=== PATIENT | male | born 1950 | race Caucasian/White ===

== ENCOUNTER 2016-06-09 12:44 | Inpatient (IN) | payer MEDICARE ==
[~2016-06-09] VITALS: Ht 190.5 cm; Wt 97.7 kg
[~2016-06-09 12:44] MED LIST: BUPR300T54 PO; CARV25TA2 PO; CLOZ100T PO; FURO-152 PO; LORA-258 PO; LURA80TA PO; POTA8TAB3 PO; RAMI10CA PO; ROSU10TA PO; ZOLP10TA2 PO
[2016-06-09] MEDS ORDERED: DEXAMETHASONE SOD PHOSPHATE 4 MG INJ IV ONE (13:15)
[2016-06-09] MEDS ORDERED: CEFTRIAXONE 2 G in IV DEXTROSE 5% 100 ML IV ONE (13:15)
[2016-06-09] MEDS ORDERED: CEFTRIAXONE 1 G VIAL ONE (13:33)
[2016-06-09] MEDS ORDERED: DEXAMETHASONE SOD PHOSPHATE 10 MG INJ ONE (13:33)
[2016-06-09 14:20] LABS: CALCIUM 8.4 mg/dL (8.5-10.1); CARBON DIOXIDE 26 mmol/L (21-32); CHLORIDE 103 mmol/L (98-107); CREATININE 1.1 mg/dL (0.6-1.3); GFR 67 mL/min (>60); GLUCOSE 101 mg/dL (74-106); POTASSIUM 3.7 mmol/L (3.5-5.1); SODIUM SERUM 140 mmol/L (136-145); UREA NITROGEN, BLOOD 13 mg/dL (7-18)
[2016-06-09 14:21] LABS: BASOPHILS # (AUTO) 0.1 K/uL (0.0-0.2); BASOPHILS % (AUTO) 1.6 % (0.0-2.0); EOSINOPHILS # (AUTO) 0.2 K/uL (0.0-0.7); EOSINOPHILS % (AUTO) 1.9 % (0.0-7.0); HEMATOCRIT 40.8 % (40.0-50.0); HEMOGLOBIN 14.1 g/dL (14.0-18.0); LYMPHOCYTES # (AUTO) 1.6 K/uL (0.8-4.8); LYMPHOCYTES % (AUTO) 19.4 % (20.5-51.5); MEAN CORPUSCULAR HEMOGLOBIN 32.1 uug (27.0-31.0); MEAN CORPUSCULAR HGB CONC 35 g/dL (32.0-37.0); MEAN CORPUSCULAR VOLUME 92.9 fL (82.0-92.0); MONOCYTES # (AUTO) 0.6 K/uL (0.1-1.30); MONOCYTES % (AUTO) 6.9 % (0.0-11.0); NEUTROPHILS # (AUTO) 5.6 K/uL (1.8-8.9); NEUTROPHILS % (AUTO) 70.2 % (38.5-71.5); PLATELET COUNT (AUTO) 223 K/uL (150-450); RED BLOOD CELL COUNT(AUTO) 4.39 MIL/uL (4.70-6.10); RED CELL DISTRIBUTION WIDTH 12.7 % (11.5-14.5); WHITE BLOOD COUNT (AUTO) 8.1 K/uL (4.0-11.2)
[2016-06-09 14:28] LABS: TROPONIN I < 0.017 ng/mL (0.00-0.056)
[2016-06-09 14:31] LABS: ETHANOL < 3 MG/DL (0-0)
[2016-06-09 14:32] LABS: AMMONIA 53 umol/L (11-32)
[2016-06-09 14:39] LABS: ALANINE AMINOTRANSFERASE 21 U/L (16-63); ALBUMIN 3.6 g/dL (3.4-5.0); ALKALINE PHOSPHATASE 52 U/L (50-136); ASPARTATE AMINOTRANSFERASE 17 U/L (15-37); BILIRUBIN,DIRECT 0.1 mg/dL (0.0-0.2); BILIRUBIN,TOTAL 0.3 mg/dL (0.2-1.0); TOTAL PROTEIN, SERUM 6.7 g/dL (6.4-8.2)
[2016-06-09 14:41] LABS: ACETAMINOPHEN < 2.0 ug/mL (10-30)
[2016-06-09] MEDS ORDERED: VALPROATE SODIUM 500 MG/5 ML VIAL IV ONE ×2 (14:45→15:08)
[2016-06-09 14:47] LABS: LACTIC ACID 3.7 mmol/L (0.4-2.0)
[2016-06-09 16:47] VITALS: BP 116/85
[2016-06-09] MEDS ORDERED: MAGNESIUM HYDROXIDE 30 ML LIQUID UDC PO PRN (19:00)
[2016-06-09] MEDS ORDERED: Medication Not On Formulary EA (Zolpidem Tartrate (Ambien) 10 MG) PO PRN (19:00)
[2016-06-09] MEDS ORDERED: LORAZEPAM 2 MG/1 ML VIAL IV PRN (19:00)
[2016-06-09] MEDS ORDERED: ENOXAPARIN SODIUM 40 MG/0.4 ML DISP.SYRIN SQ SCH (19:00)
[2016-06-09 20:10] VITALS: BP_SYST 101; BP_SYST 120; BP_DIAS 69; BP_DIAS 74
[2016-06-09] MEDS: LEVETIRACETAM 500 MG TABLET PO SCH (20:28)
[2016-06-09] MEDS ORDERED: ENOXAPARIN SODIUM 40 MG/0.4 ML DISP.SYRIN SQ ONE (20:35)
[2016-06-09] MEDS ORDERED: LEVETIRACETAM 500 MG TABLET ONE (20:36)
[2016-06-09] MEDS: ZOLPIDEM 5 MG TABLET PO SCH (21:24)
[2016-06-10] MEDS: ACETAMINOPHEN 325 MG TABLET PO PRN (00:37)
[2016-06-10] MEDS: LORAZEPAM 0.5 MG TABLET PO PRN ×2 (00:37→08:39)
[2016-06-10] MEDS ORDERED: LORAZEPAM 0.5 MG TABLET ONE (00:43)
[2016-06-10] MEDS ORDERED: ACETAMINOPHEN 325 MG TABLET ONE (00:43)
[2016-06-10 00:50] VITALS: BP 106/73
[2016-06-10 04:00] VITALS: BP 131/88
[2016-06-10] MEDS: MORPHINE SULFATE 2 MG/1 ML DISP.SYRIN IV PRN ×2 (06:45→11:42)
[2016-06-10] MEDS ORDERED: MORPHINE SULFATE 2 MG/1 ML DISP.SYRIN ONE (06:52)
[2016-06-10 06:58] LABS: ALBUMIN 3.4 g/dL (3.4-5.0); BILIRUBIN,TOTAL 0.4 mg/dL (0.2-1.0); CALCIUM 8.6 mg/dL (8.5-10.1); CREATININE 0.9 mg/dL (0.6-1.3); MAGNESIUM 2.7 mg/dL (1.8-2.4); PHOSPHOROUS 3.5 mg/dL (2.5-4.9); POTASSIUM 3.2 mmol/L (3.5-5.1); TOTAL PROTEIN, SERUM 6.5 g/dL (6.4-8.2)
[2016-06-10 07:07] LABS: BASOPHILS % (AUTO) 0.3 % (0.0-2.0); HEMATOCRIT 37.2 % (40.0-50.0); HEMOGLOBIN 12.8 g/dL (14.0-18.0); LYMPHOCYTES # (AUTO) 1.2 K/uL (0.8-4.8); LYMPHOCYTES % (AUTO) 8.8 % (20.5-51.5); MEAN CORPUSCULAR HEMOGLOBIN 31.9 uug (27.0-31.0); MEAN CORPUSCULAR HGB CONC 34 g/dL (32.0-37.0); MEAN CORPUSCULAR VOLUME 92.7 fL (82.0-92.0); MONOCYTES # (AUTO) 0.9 K/uL (0.1-1.30); MONOCYTES % (AUTO) 6.7 % (0.0-11.0); NEUTROPHILS # (AUTO) 11.6 K/uL (1.8-8.9); NEUTROPHILS % (AUTO) 84.2 % (38.5-71.5); PLATELET COUNT (AUTO) 196 K/uL (150-450); RED BLOOD CELL COUNT(AUTO) 4.02 MIL/uL (4.70-6.10); RED CELL DISTRIBUTION WIDTH 12.6 % (11.5-14.5)
[2016-06-10 07:23] LABS: WHITE BLOOD COUNT (AUTO) 13.7 K/uL (4.0-11.2)
[2016-06-10] MEDS: FUROSEMIDE 20 MG TABLET PO SCH ×2 (08:34→16:37)
[2016-06-10] MEDS: POTASSIUM CHLORIDE 8 MEQ CAPSULE.SA PO SCH (08:34)
[2016-06-10] MEDS: LEVETIRACETAM 500 MG TABLET PO SCH (08:34)
[2016-06-10] MEDS: CARVEDILOL 25 MG TABLET PO SCH ×2 (08:36→17:14)
[2016-06-10] MEDS ORDERED: Medication Not On Formulary EA (Bupropion Hcl (Bupropion Xl) 300 MG) PO SCH (09:00)
[2016-06-10] MEDS ORDERED: Medication Not On Formulary EA (Potassium Chloride (Klor-Con 8) 8 MEQ) PO SCH (09:00)
[2016-06-10] MEDS ORDERED: buPROPion XL 150 MG TAB.SR.24H PO SCH (09:00)
[2016-06-10 09:33] LABS: BAND % (MANUAL) 9 % (0-10); LYMPHOCYTES % (MANUAL) 8 % (20-40); MONOCYTES % (MANUAL) 8 % (2-10); NEUTROPHILS % (MANUAL) 75 % (42-75)
[2016-06-10 09:35] LABS: PLATELET ESTIMATE ADEQUATE
[2016-06-10] MEDS ORDERED: POTASSIUM CHLORIDE 20 MEQ TAB.PRT.SR PO ONE (11:15)
[2016-06-10 12:02] VITALS: BP 107/64
[2016-06-10 16:00] VITALS: BP 100/66
[2016-06-10 16:10] LABS: *BILIRUBIN,URIN NEGATIVE (NEGATIVE); *BLOOD, URINE Trace-lysed (NEGATIVE); *CLARITY,URINE SLIGHTLY CLOUDY (CLEAR); *COLOR,URINE YELLOW (YELLOW); *KETONES,URINE NEGATIVE (NEGATIVE); *PROTEIN,URINE NEGATIVE (NEGATIVE); *UROBILINOGEN,URINE 0.2 E.U./dl (NORMAL); LEUKOCYTE ESTERASE ,URINE NEGATIVE (NEGATIVE); NITRITE, URINE NEGATIVE (NEGATIVE); PH,URINE 5.5 (5.0-8.0); UGLUCOSE NEGATIVE (NEGATIVE)
[2016-06-10 16:17] LABS: RBC,URINE 0-3 /HPF (0-3)
[2016-06-10 16:18] LABS: BACTERIA,URINE RARE /HPF (NONE SEEN); SQUAMOUS EPITHELIAL CELL,UR FEW /HPF (NONE SEEN)
[2016-06-10 20:34] VITALS: BP 125/77
[2016-06-10] MEDS: ZOLPIDEM 5 MG TABLET PO SCH (20:50)
[2016-06-10] MEDS: ENOXAPARIN SODIUM 40 MG/0.4 ML DISP.SYRIN SQ SCH (20:51)
[2016-06-11 00:38] VITALS: BP 125/65
[2016-06-11 04:00] VITALS: BP 129/82
[2016-06-11 07:19] LABS: BASOPHILS # (AUTO) 0.1 K/uL (0.0-0.2); BASOPHILS % (AUTO) 0.5 % (0.0-2.0); EOSINOPHILS # (AUTO) 0.1 K/uL (0.0-0.7); EOSINOPHILS % (AUTO) 0.5 % (0.0-7.0); HEMATOCRIT 34.3 % (40.0-50.0); LYMPHOCYTES % (AUTO) 18.1 % (20.5-51.5); MEAN CORPUSCULAR HEMOGLOBIN 32.3 uug (27.0-31.0); MEAN CORPUSCULAR HGB CONC 35 g/dL (32.0-37.0); MEAN CORPUSCULAR VOLUME 92.3 fL (82.0-92.0); MONOCYTES # (AUTO) 1.1 K/uL (0.1-1.30); NEUTROPHILS # (AUTO) 7.6 K/uL (1.8-8.9); NEUTROPHILS % (AUTO) 70.9 % (38.5-71.5); PLATELET COUNT (AUTO) 173 K/uL (150-450); RED BLOOD CELL COUNT(AUTO) 3.72 MIL/uL (4.70-6.10); RED CELL DISTRIBUTION WIDTH 12.8 % (11.5-14.5); WHITE BLOOD COUNT (AUTO) 10.9 K/uL (4.0-11.2)
[2016-06-11 07:33] LABS: ALBUMIN 3.2 g/dL (3.4-5.0); BILIRUBIN,TOTAL 0.5 mg/dL (0.2-1.0); CALCIUM 8.5 mg/dL (8.5-10.1); CREATININE 0.9 mg/dL (0.6-1.3); MAGNESIUM 2.5 mg/dL (1.8-2.4); PHOSPHOROUS 3.4 mg/dL (2.5-4.9); POTASSIUM 3.7 mmol/L (3.5-5.1); TOTAL PROTEIN, SERUM 6.4 g/dL (6.4-8.2)
[2016-06-11] MEDS: CARVEDILOL 25 MG TABLET PO SCH ×2 (08:16→17:24)
[2016-06-11] MEDS: FUROSEMIDE 20 MG TABLET PO SCH ×2 (08:17→17:24)
[2016-06-11] MEDS: POTASSIUM CHLORIDE 8 MEQ CAPSULE.SA PO SCH (08:17)
[2016-06-11] MEDS: MORPHINE SULFATE 2 MG/1 ML DISP.SYRIN IV PRN (09:17)
[2016-06-11] MEDS: LORAZEPAM 0.5 MG TABLET PO PRN (09:17)
[2016-06-11 11:09] VITALS: BP 132/76
[2016-06-11] MEDS: CLOZAPINE 100 MG TABLET PO SCH (12:18)
[2016-06-11 15:09] VITALS: BP 133/63
[2016-06-11] MEDS: MAGNESIUM HYDROXIDE 30 ML LIQUID UDC PO PRN (18:23)
[2016-06-11 20:00] VITALS: BP 115/79
[2016-06-11] MEDS: ZOLPIDEM 5 MG TABLET PO SCH (21:13)
[2016-06-11] MEDS: ENOXAPARIN SODIUM 40 MG/0.4 ML DISP.SYRIN SQ SCH (21:17)
[2016-06-12 00:03] VITALS: BP 120/79
[2016-06-12 04:00] VITALS: BP 122/63
[2016-06-12] MEDS: FUROSEMIDE 20 MG TABLET PO SCH ×2 (07:40→16:48)
[2016-06-12] MEDS: POTASSIUM CHLORIDE 8 MEQ CAPSULE.SA PO SCH (07:40)
[2016-06-12] MEDS: CLOZAPINE 100 MG TABLET PO SCH (07:40)
[2016-06-12] MEDS: CARVEDILOL 25 MG TABLET PO SCH ×2 (07:41→16:48)
[2016-06-12] MEDS: LORAZEPAM 0.5 MG TABLET PO PRN (07:44)
[2016-06-12 08:00] VITALS: BP 124/77
[2016-06-12 15:56] VITALS: BP 126/60
[2016-06-12 20:34] LABS: HIV-1 p24 ANTIGEN NON REACTIVE (NONREACTIVE); HIV-1/2 ANTIBODY NON REACTIVE (NONREACTIVE)
[2016-06-12 21:10] VITALS: BP 107/74
[2016-06-12] MEDS: MORPHINE SULFATE 2 MG/1 ML DISP.SYRIN IV PRN (21:20)
[2016-06-12] MEDS: ZOLPIDEM 5 MG TABLET PO SCH (21:21)
[2016-06-12] MEDS: ENOXAPARIN SODIUM 40 MG/0.4 ML DISP.SYRIN SQ SCH (21:22)
[2016-06-12] MEDS: ACETAMINOPHEN 325 MG TABLET PO PRN (23:50)
[2016-06-13 00:02] VITALS: BP 154/84
[2016-06-13 06:32] VITALS: BP 147/83
[2016-06-13 07:08] LABS: BASOPHILS % (AUTO) 0.6 % (0.0-2.0); EOSINOPHILS # (AUTO) 0.2 K/uL (0.0-0.7); EOSINOPHILS % (AUTO) 2.9 % (0.0-7.0); HEMOGLOBIN 11.3 g/dL (14.0-18.0); LYMPHOCYTES # (AUTO) 1.6 K/uL (0.8-4.8); LYMPHOCYTES % (AUTO) 20.3 % (20.5-51.5); MEAN CORPUSCULAR HEMOGLOBIN 31.6 uug (27.0-31.0); MEAN CORPUSCULAR HGB CONC 34 g/dL (32.0-37.0); MEAN CORPUSCULAR VOLUME 92.5 fL (82.0-92.0); MONOCYTES # (AUTO) 0.6 K/uL (0.1-1.30); MONOCYTES % (AUTO) 7.3 % (0.0-11.0); NEUTROPHILS # (AUTO) 5.5 K/uL (1.8-8.9); NEUTROPHILS % (AUTO) 68.9 % (38.5-71.5); PLATELET COUNT (AUTO) 171 K/uL (150-450); RED BLOOD CELL COUNT(AUTO) 3.57 MIL/uL (4.70-6.10); RED CELL DISTRIBUTION WIDTH 12.7 % (11.5-14.5); WHITE BLOOD COUNT (AUTO) 7.9 K/uL (4.0-11.2)
[2016-06-13 07:23] LABS: ALBUMIN 2.8 g/dL (3.4-5.0); BILIRUBIN,TOTAL 0.5 mg/dL (0.2-1.0); CALCIUM 8.6 mg/dL (8.5-10.1); CREATININE 0.9 mg/dL (0.6-1.3); MAGNESIUM 2.2 mg/dL (1.8-2.4); PHOSPHOROUS 4.6 mg/dL (2.5-4.9); POTASSIUM 3.6 mmol/L (3.5-5.1); TOTAL PROTEIN, SERUM 6.1 g/dL (6.4-8.2)
[2016-06-13] MEDS: FUROSEMIDE 20 MG TABLET PO SCH ×2 (09:20→17:21)
[2016-06-13] MEDS: CARVEDILOL 25 MG TABLET PO SCH ×2 (09:20→17:22)
[2016-06-13] MEDS: POTASSIUM CHLORIDE 8 MEQ CAPSULE.SA PO SCH (09:20)
[2016-06-13] MEDS: CLOZAPINE 100 MG TABLET PO SCH (09:20)
[2016-06-13] MEDS: MAGNESIUM HYDROXIDE 30 ML LIQUID UDC PO PRN (09:24)
[2016-06-13 11:07] VITALS: BP 125/55
[2016-06-13 15:12] VITALS: BP 130/67
[2016-06-13 19:06] LABS: *AMPHETAMINE, URINE NEGATIVE (NEGATIVE); *BARBITURATE, URINE NEGATIVE (NEGATIVE); *CANNABINOID, URINE NEGATIVE (NEGATIVE); *COCCAINE, URINE NEGATIVE (NEGATIVE); *OPIATE, URINE POSITIVE (NEGATIVE); *PHENCYCLIDINE SCREEN,URINE NEGATIVE (NEGATIVE)
[2016-06-13] MEDS: MORPHINE SULFATE 2 MG/1 ML DISP.SYRIN IV PRN (20:24)
[2016-06-13] MEDS: ATORVASTATIN 20 MG TABLET PO SCH (20:24)
[2016-06-13] MEDS: ENOXAPARIN SODIUM 40 MG/0.4 ML DISP.SYRIN SQ SCH (20:25)
[2016-06-13 20:40] VITALS: BP 128/81
[2016-06-14] VITALS (8 sets, daily range): BP systolic 109–147; BP diastolic 73–87
[2016-06-14] MEDS: ZOLPIDEM 5 MG TABLET PO PRN ×2 (00:03→20:50)
[2016-06-14 06:59] LABS: BASOPHILS # (AUTO) 0.1 K/uL (0.0-0.2); BASOPHILS % (AUTO) 0.6 % (0.0-2.0); EOSINOPHILS # (AUTO) 0.1 K/uL (0.0-0.7); EOSINOPHILS % (AUTO) 1.1 % (0.0-7.0); HEMATOCRIT 32.6 % (40.0-50.0); HEMOGLOBIN 11.4 g/dL (14.0-18.0); LYMPHOCYTES # (AUTO) 1.5 K/uL (0.8-4.8); LYMPHOCYTES % (AUTO) 17.2 % (20.5-51.5); MEAN CORPUSCULAR HEMOGLOBIN 32.1 uug (27.0-31.0); MEAN CORPUSCULAR HGB CONC 35 g/dL (32.0-37.0); MEAN CORPUSCULAR VOLUME 91.3 fL (82.0-92.0); MONOCYTES % (AUTO) 11.7 % (0.0-11.0); NEUTROPHILS # (AUTO) 5.9 K/uL (1.8-8.9); NEUTROPHILS % (AUTO) 69.4 % (38.5-71.5); PLATELET COUNT (AUTO) 195 K/uL (150-450); RED BLOOD CELL COUNT(AUTO) 3.57 MIL/uL (4.70-6.10); RED CELL DISTRIBUTION WIDTH 12.5 % (11.5-14.5); WHITE BLOOD COUNT (AUTO) 8.6 K/uL (4.0-11.2)
[2016-06-14] MEDS ORDERED: POLYMYXIN B SULFATE 500,000 UNITS, BACITRACIN 50,000 UNITS, NORMAL SALINE 20 ML MC ONE ×3 (07:15)
[2016-06-14 07:16] LABS: BILIRUBIN,TOTAL 0.7 mg/dL (0.2-1.0); CALCIUM 8.7 mg/dL (8.5-10.1); CREATININE 0.8 mg/dL (0.6-1.3); MAGNESIUM 2.3 mg/dL (1.8-2.4); PHOSPHOROUS 4.1 mg/dL (2.5-4.9); POTASSIUM 3.9 mmol/L (3.5-5.1); TOTAL PROTEIN, SERUM 6.4 g/dL (6.4-8.2)
[2016-06-14] MEDS: CARVEDILOL 25 MG TABLET PO SCH ×2 (08:00→18:42)
[2016-06-14] MEDS ORDERED: ROCURONIUM BROMIDE 50 MG/5 ML VIAL ONE (08:04)
[2016-06-14] MEDS ORDERED: FENTANYL CITRATE 100 MCG/2 ML AMPUL ONE (08:04)
[2016-06-14] MEDS ORDERED: MIDAZOLAM HCL 2 MG/2 ML VIAL ONE (08:04)
[2016-06-14] MEDS ORDERED: CEFAZOLIN 1 G VIAL MC ONE (08:07)
[2016-06-14] MEDS ORDERED: ETOMIDATE 20 MG/10 ML VIAL MC ONE (08:07)
[2016-06-14] MEDS ORDERED: GLYCOPYRROLATE 0.2 MG/ML VIAL MC ONE (08:07)
[2016-06-14] MEDS ORDERED: SEVOFLURANE 250 ML BOTTLE IH ONE (08:07)
[2016-06-14] MEDS ORDERED: IV NORMAL SALINE 1000 ML BAG IV ONE (08:07)
[2016-06-14] MEDS ORDERED: DEXAMETHASONE SOD PHOSPHATE 4 MG INJ IV ONE (08:07)
[2016-06-14] MEDS ORDERED: ONDANSETRON 4 MG/2 ML VIAL IV ONE (08:07)
[2016-06-14] MEDS ORDERED: KETOROLAC TROMETHAMINE 30 MG INJ IM ONE (08:07)
[2016-06-14] MEDS ORDERED: NEOSTIGMINE METHYLSULFATE 10 MG/10 ML VIAL IV ONE (08:07)
[2016-06-14] MEDS: POTASSIUM CHLORIDE 8 MEQ CAPSULE.SA PO SCH (09:00)
[2016-06-14] MEDS: FUROSEMIDE 20 MG TABLET PO SCH ×2 (09:00→16:40)
[2016-06-14] MEDS: CLOZAPINE 100 MG TABLET PO SCH (09:00)
[2016-06-14] MEDS ORDERED: BUPIVACAINE/EPI PF 0.25% 30 ML VIAL ONE (09:37)
[2016-06-14] MEDS ORDERED: MORPHINE SULFATE 4 MG/1 ML DISP.SYRIN IV PRN (10:45)
[2016-06-14] MEDS ORDERED: HYDROCODONE/APAP 10-325 MG TABLET PO PRN (10:45)
[2016-06-14] MEDS ORDERED: POTASSIUM CHLORIDE 20 MEQ in IV D5 1/2 NS 1000 ML 1,000 ML IV PRN (10:45)
[2016-06-14] MEDS ORDERED: MORPHINE SULFATE 2 MG/1 ML DISP.SYRIN IV PRN (11:00)
[2016-06-14] MEDS: CEFAZOLIN 1 G in PREMIXED 1 EACH IV SCH ×2 (16:37→21:22)
[2016-06-14] MEDS ORDERED: FUROSEMIDE 20 MG/2 ML VIAL IV ONE (19:45)
[2016-06-14] MEDS: ATORVASTATIN 20 MG TABLET PO SCH (20:47)
[2016-06-15 04:39] VITALS: BP 130/80
[2016-06-15 06:42] LABS: BASOPHILS % (AUTO) 0.3 % (0.0-2.0); EOSINOPHILS # (AUTO) 0.1 K/uL (0.0-0.7); EOSINOPHILS % (AUTO) 0.5 % (0.0-7.0); HEMATOCRIT 29.8 % (40.0-50.0); HEMOGLOBIN 10.2 g/dL (14.0-18.0); LYMPHOCYTES # (AUTO) 1.7 K/uL (0.8-4.8); LYMPHOCYTES % (AUTO) 16.6 % (20.5-51.5); MEAN CORPUSCULAR HEMOGLOBIN 31.6 uug (27.0-31.0); MEAN CORPUSCULAR HGB CONC 34 g/dL (32.0-37.0); MEAN CORPUSCULAR VOLUME 92.5 fL (82.0-92.0); MONOCYTES # (AUTO) 1.2 K/uL (0.1-1.30); MONOCYTES % (AUTO) 11.6 % (0.0-11.0); NEUTROPHILS # (AUTO) 7.2 K/uL (1.8-8.9); PLATELET COUNT (AUTO) 206 K/uL (150-450); RED BLOOD CELL COUNT(AUTO) 3.23 MIL/uL (4.70-6.10); RED CELL DISTRIBUTION WIDTH 12.3 % (11.5-14.5); WHITE BLOOD COUNT (AUTO) 10.2 K/uL (4.0-11.2)
[2016-06-15 07:48] LABS: CALCIUM 7.9 mg/dL (8.5-10.1); MAGNESIUM 2.1 mg/dL (1.8-2.4); PHOSPHOROUS 3.6 mg/dL (2.5-4.9); POTASSIUM 3.6 mmol/L (3.5-5.1)
[2016-06-15] MEDS: FUROSEMIDE 20 MG TABLET PO SCH ×2 (08:27→17:03)
[2016-06-15] MEDS: POTASSIUM CHLORIDE 8 MEQ CAPSULE.SA PO SCH (08:28)
[2016-06-15] MEDS: CARVEDILOL 25 MG TABLET PO SCH ×2 (08:28→17:09)
[2016-06-15] MEDS: CLOZAPINE 100 MG TABLET PO SCH ×2 (08:29→20:34)
[2016-06-15] MEDS: ENOXAPARIN SODIUM 40 MG/0.4 ML DISP.SYRIN SQ SCH (08:29)
[2016-06-15] MEDS ORDERED: POTASSIUM CHLORIDE 20 MEQ TAB.PRT.SR PO ONE (10:15)
[2016-06-15 11:45] VITALS: BP 117/67
[2016-06-15] MEDS: LORAZEPAM 0.5 MG TABLET PO PRN (13:19)
[2016-06-15 16:02] VITALS: BP 133/72
[2016-06-15] MEDS: GUAIFENESIN/DEXTROMETHORPHAN 5 ML UDC PO PRN (17:09)
[2016-06-15] MEDS: ACETAMINOPHEN 325 MG TABLET PO PRN (19:45)
[2016-06-15 20:00] VITALS: BP 117/65
[2016-06-15] MEDS: ATORVASTATIN 20 MG TABLET PO SCH (20:34)
[2016-06-15] MEDS: ZOLPIDEM 5 MG TABLET PO PRN (20:35)
[2016-06-16] MEDS: GUAIFENESIN/DEXTROMETHORPHAN 5 ML UDC PO PRN ×3 (05:11→20:19)
[2016-06-16 05:49] VITALS: BP 133/77
[2016-06-16 07:37] LABS: BASOPHILS % (AUTO) 0.4 % (0.0-2.0); EOSINOPHILS # (AUTO) 0.1 K/uL (0.0-0.7); EOSINOPHILS % (AUTO) 1.7 % (0.0-7.0); HEMATOCRIT 30.8 % (40.0-50.0); HEMOGLOBIN 10.4 g/dL (14.0-18.0); LYMPHOCYTES # (AUTO) 1.3 K/uL (0.8-4.8); LYMPHOCYTES % (AUTO) 17.1 % (20.5-51.5); MEAN CORPUSCULAR HEMOGLOBIN 31.7 uug (27.0-31.0); MEAN CORPUSCULAR HGB CONC 34 g/dL (32.0-37.0); MEAN CORPUSCULAR VOLUME 94.2 fL (82.0-92.0); MONOCYTES # (AUTO) 0.9 K/uL (0.1-1.30); NEUTROPHILS # (AUTO) 5.5 K/uL (1.8-8.9); NEUTROPHILS % (AUTO) 68.8 % (38.5-71.5); PLATELET COUNT (AUTO) 182 K/uL (150-450); RED BLOOD CELL COUNT(AUTO) 3.27 MIL/uL (4.70-6.10); RED CELL DISTRIBUTION WIDTH 12.5 % (11.5-14.5); WHITE BLOOD COUNT (AUTO) 7.8 K/uL (4.0-11.2)
[2016-06-16 07:55] LABS: CALCIUM 8.2 mg/dL (8.5-10.1); CREATININE 0.8 mg/dL (0.6-1.3); MAGNESIUM 2.3 mg/dL (1.8-2.4); PHOSPHOROUS 3.4 mg/dL (2.5-4.9); POTASSIUM 3.8 mmol/L (3.5-5.1)
[2016-06-16] MEDS: POTASSIUM CHLORIDE 8 MEQ CAPSULE.SA PO SCH (08:43)
[2016-06-16] MEDS: CARVEDILOL 25 MG TABLET PO SCH ×2 (08:43→17:25)
[2016-06-16] MEDS: RAMIPRIL 5 MG CAPSULE PO SCH (08:44)
[2016-06-16] MEDS: ENOXAPARIN SODIUM 40 MG/0.4 ML DISP.SYRIN SQ SCH (08:47)
[2016-06-16] MEDS: FUROSEMIDE 20 MG TABLET PO SCH ×2 (08:50→17:23)
[2016-06-16 11:05] VITALS: BP 124/66
[2016-06-16] MEDS ORDERED: POTASSIUM CHLORIDE 20 MEQ TAB.PRT.SR PO ONE (11:15)
[2016-06-16] MEDS ORDERED: HYDR-548 PO (13:45)
[2016-06-16] MEDS ORDERED: MULT-1045 PO (13:46)
[2016-06-16] MEDS ORDERED: ALBUTEROL SULFATE 2.5 MG/3 ML NEBU NEB ONE (14:03)
[2016-06-16] MEDS ORDERED: IPRATROPIUM BROMIDE 0.5 MG/2.5 ML NEBU NEB ONE (14:03)
[2016-06-16] MEDS ORDERED: FUROSEMIDE 20 MG/2 ML VIAL IV ONE (14:15)
[2016-06-16 16:34] VITALS: BP 104/60
[2016-06-16 20:00] VITALS: BP 126/73
[2016-06-16] MEDS: ATORVASTATIN 20 MG TABLET PO SCH (20:19)
[2016-06-16] MEDS: CLOZAPINE 100 MG TABLET PO SCH (20:19)
[2016-06-16] MEDS: ZOLPIDEM 5 MG TABLET PO PRN (20:20)
[2016-06-16] MEDS ORDERED: PIPERACILLIN/TAZOBACTAM/D5W 100 ML IV ONE (21:01)
[2016-06-16] MEDS: PIPERACILLIN/TAZOBACTAM/D5W 3.375 G in PREMIXED 1 EACH IV SCH ×2 (21:14→22:00)
[2016-06-17] MEDS: PIPERACILLIN/TAZOBACTAM/D5W 3.375 G in PREMIXED 1 EACH IV SCH ×2 (05:08→13:13)
[2016-06-17 05:13] VITALS: BP 112/65
[2016-06-17] MEDS: GUAIFENESIN/DEXTROMETHORPHAN 5 ML UDC PO PRN ×2 (05:24→12:00)
[2016-06-17] MEDS ORDERED: ALBUTEROL SULFATE 2.5 MG/3 ML NEBU NEB PRN (05:45)
[2016-06-17] MEDS: IPRATROPIUM BROMIDE 0.5 MG/2.5 ML NEBU NEB PRN ×2 (05:51→14:24)
[2016-06-17] MEDS ORDERED: IPRATROPIUM BROMIDE 0.5 MG/2.5 ML NEBU ONE (05:53)
[2016-06-17 06:46] LABS: BASOPHILS % (AUTO) 0.5 % (0.0-2.0); EOSINOPHILS # (AUTO) 0.1 K/uL (0.0-0.7); EOSINOPHILS % (AUTO) 1.1 % (0.0-7.0); HEMATOCRIT 28.9 % (40.0-50.0); HEMOGLOBIN 10.1 g/dL (14.0-18.0); LYMPHOCYTES % (AUTO) 16.5 % (20.5-51.5); MEAN CORPUSCULAR HEMOGLOBIN 32.5 uug (27.0-31.0); MEAN CORPUSCULAR HGB CONC 35 g/dL (32.0-37.0); MEAN CORPUSCULAR VOLUME 93.1 fL (82.0-92.0); MONOCYTES # (AUTO) 0.8 K/uL (0.1-1.30); MONOCYTES % (AUTO) 14.3 % (0.0-11.0); NEUTROPHILS # (AUTO) 3.9 K/uL (1.8-8.9); NEUTROPHILS % (AUTO) 67.6 % (38.5-71.5); PLATELET COUNT (AUTO) 232 K/uL (150-450); RED CELL DISTRIBUTION WIDTH 12.8 % (11.5-14.5); WHITE BLOOD COUNT (AUTO) 5.8 K/uL (4.0-11.2)
[2016-06-17 07:13] LABS: ALBUMIN 2.5 g/dL (3.4-5.0); BILIRUBIN,TOTAL 0.6 mg/dL (0.2-1.0); CALCIUM 8.2 mg/dL (8.5-10.1); CREATININE 0.8 mg/dL (0.6-1.3); MAGNESIUM 2.2 mg/dL (1.8-2.4); PHOSPHOROUS 3.9 mg/dL (2.5-4.9); POTASSIUM 3.7 mmol/L (3.5-5.1); TOTAL PROTEIN, SERUM 6.1 g/dL (6.4-8.2)
[2016-06-17] MEDS ORDERED: ALBUTEROL SULFATE 2.5 MG/ 0.5 ML NEBU NEB PRN (07:30)
[2016-06-17] MEDS: RAMIPRIL 5 MG CAPSULE PO SCH (08:41)
[2016-06-17] MEDS: POTASSIUM CHLORIDE 8 MEQ CAPSULE.SA PO SCH (08:41)
[2016-06-17] MEDS: CARVEDILOL 25 MG TABLET PO SCH (08:41)
[2016-06-17] MEDS: FUROSEMIDE 20 MG TABLET PO SCH (08:42)
[2016-06-17] MEDS: ENOXAPARIN SODIUM 40 MG/0.4 ML DISP.SYRIN SQ SCH (08:42)
[2016-06-17] MEDS ORDERED: buPROPion XL 150 MG TAB.SR.24H PO SCH (11:15)
[2016-06-17 11:51] VITALS: BP 109/71
[2016-06-17] MEDS ORDERED: AMOX-430 PO (13:25)
== END 2016-06-17 15:50 | DRG 981 ==
LOC: ER 12:44 → TELE 15:32 → MED 06-14 17:45
PROVIDERS: ADMIT Internal Medicine; ATTEND Internal Medicine
PROC: 4B02XTZ Measurement of Cardiac Defibrillator, External Approach (ICD-10-PCS; 2016-06-13)
PROC: BP1BZZZ Fluoroscopy of Left Humerus (ICD-10-PCS; 2016-06-14)
PROC: 0PSD04Z Reposition Left Humeral Head with Internal Fixation Device, Open Approach (ICD-10-PCS; principal; 2016-06-14 08:07)
DX: G90.8 Other disorders of autonomic nervous system (principal); R65.11 Systemic inflammatory response syndrome (SIRS) of non-infectious origin with acute organ dysfunction; I50.42 Chronic combined systolic (congestive) and diastolic (congestive) heart failure; E87.2 Acidosis; I42.9 Cardiomyopathy, unspecified; M80.022A Age-related osteoporosis with current pathological fracture, left humerus, initial encounter for fracture; R56.9 Unspecified convulsions; Z95.810 Presence of automatic (implantable) cardiac defibrillator; M48.02 Spinal stenosis, cervical region; R29.6 Repeated falls; Z91.81 History of falling; G24.01 Drug induced subacute dyskinesia; T43.595D Adverse effect of other antipsychotics and neuroleptics, subsequent encounter; S92.912D Unspecified fracture of left toe(s), subsequent encounter for fracture with routine healing; W19.XXXD Unspecified fall, subsequent encounter; E87.6 Hypokalemia; E66.9 Obesity, unspecified; Z68.26 Body mass index [BMI] 26.0-26.9, adult; I11.0 Hypertensive heart disease with heart failure; F32.9 Major depressive disorder, single episode, unspecified; Z96.659 Presence of unspecified artificial knee joint; R73.03 Prediabetes; R32 Unspecified urinary incontinence; E78.5 Hyperlipidemia, unspecified; J45.909 Unspecified asthma, uncomplicated; S93.401D Sprain of unspecified ligament of right ankle, subsequent encounter; Z79.899 Other long term (current) drug therapy
CPT/HCPCS: 36415; 70030-TC; 70450; 71010; 72125; 73020; 73610; 76000; 80307; 83605; 83735; 84100; 84443; 85025; 85610; 85730; 86850; 86900; 86901; 87040; 87086; 87806; 93005; 94640; 94664; 97001; 97110; 97112; 97116; 97530; A4649; A4663; C1713; G0480-TC; G6040-TC; J0690; J0696; J1100; J1650; J1885; J1940; J2250; J2270; J2405; J2543; J2710; J3010; J3480; J3490; J3590; J7030

== ENCOUNTER 2016-09-04 05:54 | Day surgery (SDC) | payer MEDICARE ==
[~2016-09-04 05:54] MED LIST changes: +AMOX-430 PO; -BUPR300T54 PO; +HYDR-548 PO; +MULT-1045 PO
[2016-09-04] MEDS ORDERED: PROPOFOL 200 MG/20 ML BOTTLE IV ONE (05:55)
[2016-09-04] MEDS ORDERED: IV LACTATED RINGERS SOLUTION 1,000 ML BAG IV ONE (05:55)
[2016-09-04] MEDS ORDERED: SEVOFLURANE 250 ML BOTTLE IH ONE (05:55)
[2016-09-04] MEDS ORDERED: LIDOCAINE HCL 1% 20 ML VIAL MC ONE (05:55)
[2016-09-04] MEDS ORDERED: BUPIVACAINE/EPI PF 0.25% 30 ML VIAL ONE (06:52)
[2016-09-04 06:59] LABS: BASOPHILS # (AUTO) 0.1 K/uL (0.0-8.0); BASOPHILS % (AUTO) 1.1 % (0.0-2.0); EOSINOPHILS # (AUTO) 0.1 K/uL (0.0-0.7); EOSINOPHILS % (AUTO) 2.3 % (0.0-7.0); HEMATOCRIT 41.7 % (40-50); HEMOGLOBIN 14.3 G/DL (14.0-18.0); LYMPHOCYTES # (AUTO) 2.1 K/UL (0.8-4.8); LYMPHOCYTES % (AUTO) 32.3 % (20.5-51.5); MEAN CORPUSCULAR HEMOGLOBIN 30.7 UUG (27.0-31.0); MEAN CORPUSCULAR HGB CONC 34 g/dL (32.0-37.0); MEAN CORPUSCULAR VOLUME 89.4 FL (82.0-92.0); MONOCYTES # (AUTO) 0.6 K/UL (0.1-1.30); MONOCYTES % (AUTO) 8.6 % (0.0-11.0); NEUTROPHILS # (AUTO) 3.6 K/UL (1.8-8.9); NEUTROPHILS % (AUTO) 55.7 % (38.5-71.5); PLATELET COUNT (AUTO) 240 K/UL (150-450); RED BLOOD CELL COUNT(AUTO) 4.66 MIL/UL (4.7-6.1); WHITE BLOOD COUNT (AUTO) 6.5 K/UL (4.0-11.2)
[2016-09-04 07:09] LABS: POTASSIUM 3.4 mmol/L (3.5-5.1)
[2016-09-04] MEDS ORDERED: FENTANYL CITRATE 100 MCG/2 ML AMPUL ONE (08:06)
[2016-09-04] MEDS ORDERED: MIDAZOLAM HCL 2 MG/2 ML VIAL ONE (08:06)
[2016-09-04 08:38] LABS: *BILIRUBIN,URIN NEGATIVE (NEGATIVE); *BLOOD, URINE Trace-lysed (NEGATIVE); *CLARITY,URINE CLEAR (CLEAR); *COLOR,URINE YELLOW (YELLOW); *KETONES,URINE NEGATIVE (NEGATIVE); *PROTEIN,URINE NEGATIVE (NEGATIVE); *UROBILINOGEN,URINE 0.2 E.U./dl (NORMAL); LEUKOCYTE ESTERASE ,URINE NEGATIVE (NEGATIVE); NITRITE, URINE NEGATIVE (NEGATIVE); PH,URINE 5.5 (5.0-8.0); UGLUCOSE NEGATIVE (NEGATIVE)
[2016-09-04 08:46] LABS: BACTERIA,URINE FEW /HPF (NONE SEEN); RBC,URINE 0-3 /HPF (0-3); SQUAMOUS EPITHELIAL CELL,UR FEW /HPF (NONE SEEN); WBC,URINE 0-3 /HPF (0-3)
== END 2016-09-04 12:20 | disposition home or self-care (01) ==
LOC: DS 05:54
PROVIDERS: ATTEND Orthopaedic Surgery Sports Medicine
DX: M75.02 Adhesive capsulitis of left shoulder (principal); I50.9 Heart failure, unspecified; E78.5 Hyperlipidemia, unspecified; F32.9 Major depressive disorder, single episode, unspecified
CPT/HCPCS: 23700; 36415; 71010; 80048; 81001; 85025; 85730; 93005; A4663; J2250; J3010; J3490 ×3; J7120 ×2

== ENCOUNTER 2016-11-13 12:04 | Outpatient (CLI) | payer MEDICARE ==
[2016-11-13 14:28] LABS: POTASSIUM 4.4 mmol/L (3.5-5.1)
[2016-11-13 14:31] LABS: BASOPHILS % (AUTO) 0.5 % (0.0-2.0); EOSINOPHILS # (AUTO) 0.2 K/uL (0.0-0.7); EOSINOPHILS % (AUTO) 2.1 % (0.0-7.0); HEMATOCRIT 41.6 % (40-50); HEMOGLOBIN 13.6 G/DL (14.0-18.0); MEAN CORPUSCULAR HEMOGLOBIN 30.2 UUG (27.0-31.0); MEAN CORPUSCULAR HGB CONC 33 g/dL (32.0-37.0); MEAN CORPUSCULAR VOLUME 92.7 FL (82.0-92.0); MONOCYTES # (AUTO) 0.8 K/UL (0.1-1.30); MONOCYTES % (AUTO) 8.3 % (0.0-11.0); NEUTROPHILS # (AUTO) 6.1 K/UL (1.8-8.9); NEUTROPHILS % (AUTO) 67.1 % (38.5-71.5); PLATELET COUNT (AUTO) 196 K/UL (150-450); RED BLOOD CELL COUNT(AUTO) 4.49 MIL/UL (4.7-6.1); WHITE BLOOD COUNT (AUTO) 9.1 K/UL (4.0-11.2)
[2016-11-13 15:12] LABS: *BILIRUBIN,URIN NEGATIVE (NEGATIVE); *BLOOD, URINE NEGATIVE (NEGATIVE); *CLARITY,URINE CLEAR (CLEAR); *COLOR,URINE YELLOW (YELLOW); *KETONES,URINE NEGATIVE (NEGATIVE); *PROTEIN,URINE 1+ (NEGATIVE); *UROBILINOGEN,URINE 0.2 E.U./dl (NORMAL); LEUKOCYTE ESTERASE ,URINE NEGATIVE (NEGATIVE); NITRITE, URINE NEGATIVE (NEGATIVE); UGLUCOSE NEGATIVE (NEGATIVE)
[2016-11-13 15:26] LABS: WBC,URINE 0-3 /HPF (0-3)
[2016-11-13 15:27] LABS: CALCIUM OXALATE CRYSTALS,UR FEW /HPF (NONE SEEN); MUCUS,URINE MANY /LPF (0-FEW)
== END 2016-11-13 23:59 | disposition home or self-care (01) ==
LOC: LAB 12:04
PROVIDERS: ATTEND Orthopaedic Surgery Sports Medicine
DX: Z01.818 Encounter for other preprocedural examination (principal)
CPT/HCPCS: 36415; 85025; 85730

== ENCOUNTER 2016-11-14 10:11 | Day surgery (SDC) | payer MEDICARE ==
[2016-11-14] MEDS ORDERED: PROPOFOL 200 MG/20 ML BOTTLE IV ONE (10:12)
[2016-11-14] MEDS ORDERED: LIDOCAINE-MPF 2% 5 ML VIAL MC ONE (10:12)
[2016-11-14] MEDS ORDERED: IV LACTATED RINGERS SOLUTION 1,000 ML BAG IV ONE (10:12)
[2016-11-14] MEDS ORDERED: TRIAMCINOLONE ACETONIDE 40 MG/1 ML VIAL ONE (11:08)
[2016-11-14] MEDS ORDERED: FENTANYL CITRATE 100 MCG/2 ML AMPUL ONE (12:20)
[2016-11-14] MEDS ORDERED: SUCCINYLCHOLINE CHLORIDE 200 MG/10 ML VIAL ONE (12:21)
[2016-11-14] MEDS ORDERED: BUPIVACAINE 0.25% 30 ML VIAL ONE (12:33)
== END 2016-11-14 14:53 | disposition home or self-care (01) ==
LOC: DS 10:11
PROVIDERS: ATTEND Orthopaedic Surgery Sports Medicine
DX: M24.612 Ankylosis, left shoulder (principal); Z98.890 Other specified postprocedural states; M75.02 Adhesive capsulitis of left shoulder; I10 Essential (primary) hypertension; Z95.810 Presence of automatic (implantable) cardiac defibrillator
CPT/HCPCS: 71020; A4663; J0330; J3010; J3301; J3490; J7120

== ENCOUNTER 2017-02-06 07:29 | Inpatient (IN) | payer MEDICARE ==
[~2017-02-06] VITALS: Ht 190.5 cm; Wt 96.3 kg
[2017-02-06] VITALS (9 sets, daily range): BP systolic 96–130; BP diastolic 64–84
[2017-02-06] MEDS ORDERED: POLYMYXIN B SULFATE 500,000 UNITS, BACITRACIN 50,000 UNITS, NORMAL SALINE 20 ML MC ONE ×3 (07:45)
[2017-02-06 07:55] LABS: *BILIRUBIN,URIN NEGATIVE (NEGATIVE); *BLOOD, URINE Trace-intact (NEGATIVE); *CLARITY,URINE CLEAR (CLEAR); *COLOR,URINE YELLOW (YELLOW); *KETONES,URINE NEGATIVE (NEGATIVE); *PROTEIN,URINE NEGATIVE (NEGATIVE); *UROBILINOGEN,URINE 0.2 E.U./dl (NORMAL); LEUKOCYTE ESTERASE ,URINE NEGATIVE (NEGATIVE); NITRITE, URINE NEGATIVE (NEGATIVE); UGLUCOSE NEGATIVE (NEGATIVE)
[2017-02-06 08:17] LABS: BACTERIA,URINE NONE SEEN /HPF (NONE SEEN); SPERM,URINE MODERATE /HPF (NONE SEEN); SQUAMOUS EPITHELIAL CELL,UR NONE SEEN /HPF (NONE SEEN); WBC,URINE 0-3 /HPF (0-3)
[2017-02-06] MEDS ORDERED: MIDAZOLAM HCL 10 MG/2 ML VIAL ONE (09:18)
[2017-02-06] MEDS ORDERED: FENTANYL CITRATE 100 MCG/2 ML AMPUL ONE (09:18)
[2017-02-06] MEDS ORDERED: BUPIVACAINE/EPI PF 0.25% 30 ML VIAL ONE (10:06)
[2017-02-06] MEDS ORDERED: EPHEDRINE SULFATE 50 MG/ML AMPUL ONE (11:11)
[2017-02-06] MEDS ORDERED: ALBUMIN HUMAN 5% 250 ML ONE (13:16)
[2017-02-06] MEDS ORDERED: BACITRACIN 50,000 UNITS VIAL ONE (13:28)
[2017-02-06] MEDS ORDERED: VANCOMYCIN 1000 MG VIAL ONE (13:32)
[2017-02-06] MEDS ORDERED: NEOMY/BACITRAC/POLYMI OINT 28.35 GM TUBE ONE (13:52)
[2017-02-06 14:40] LABS: HEMATOCRIT 39.6 % (40-50); HEMOGLOBIN 13.5 G/DL (14.0-18.0)
[2017-02-06] MEDS ORDERED: CEFAZOLIN 50 ML IV ONE (14:47)
--- NOTE | 2017-02-06 15:00 | NUR ---
RECEIVED PATIENT FROM RECOVERY UNIT, NO S/S OF RESPIRATORY DISTRESS NOTED. NO PAIN REPORTED, PT IS ON 2L NC. IV INTACT/PATENT. DARK YELLOW URINE IS NOTED DRAINING IN SUAREZ. PT IS ALERT AND ORIENTED X3, PT IS PACING ON MONITOR. PT IS ABLE TO WIGGLE HIS FINGERS OF HIS LEFT EXTREMITY. DRESSING IS NOTED, NO S/S OF BLEEDING, PT IS ABLE TO FEEL HIS FINGERS. WILL CONTINUE TO MONITOR.
[2017-02-06] MEDS ORDERED: HYDROMORPHONE 2 MG/1 ML DISP.SYRIN IV PRN (16:30)
[2017-02-06] MEDS ORDERED: ACETAMINOPHEN 325 MG TABLET PO PRN (16:30)
[2017-02-06] MEDS ORDERED: IV D5W-0.45% NS +20 KCL 1,000 ML IV PRN (16:30)
[2017-02-06] MEDS ORDERED: ZOLPIDEM 5 MG TABLET PO PRN (16:30)
[2017-02-06] MEDS: HYDROCODONE/APAP 10-325 MG TABLET PO PRN (16:43)
[2017-02-06] MEDS: CARVEDILOL 25 MG TABLET PO SCH (17:18)
--- NOTE | 2017-02-06 17:18 | NUR ---
CALLED DR. SPEAR FOR VERIFICATIONS OF ORDERS, AWAITING CALL BACK Addendum: 02/06/17 at 1739 by TIMI ZHANG RN WRITING ON ORDERS IS NOT CLEAR.
[2017-02-06 17:26] LABS: BASOPHILS % (AUTO) 0.3 % (0.0-2.0); EOSINOPHILS % (AUTO) 0.3 % (0.0-7.0); LYMPHOCYTES # (AUTO) 0.5 K/UL (0.8-4.8); LYMPHOCYTES % (AUTO) 6.9 % (20.5-51.5); MEAN CORPUSCULAR HEMOGLOBIN 31.8 UUG (27.0-31.0); MEAN CORPUSCULAR HGB CONC 33 g/dL (32.0-37.0); MEAN CORPUSCULAR VOLUME 95.7 FL (82.0-92.0); MONOCYTES % (AUTO) 0.4 % (0.0-11.0); NEUTROPHILS # (AUTO) 7.4 K/UL (1.8-8.9); NEUTROPHILS % (AUTO) 92.1 % (38.5-71.5); PLATELET COUNT (AUTO) 169 K/UL (150-450); RED BLOOD CELL COUNT(AUTO) 4.22 MIL/UL (4.7-6.1); WHITE BLOOD COUNT (AUTO) 7.9 K/UL (4.0-11.2)
[2017-02-06 17:30] LABS: HEMATOCRIT 39.6 % (40-50); HEMOGLOBIN 13.5 G/DL (14.0-18.0)
--- NOTE | 2017-02-06 17:39 | NUR ---
DR. CALIX IS PAGED IN REGARDS OF THE PATIENT, PER DR. SPEAR'S WRITTEN ORDERS.
--- NOTE | 2017-02-06 17:50 | NUR ---
TALKED TO DR. CALIX, GAVE FULL PT REPORT. PER DR. YOGI LE. NO NEW ORDERS FROM DR CALIX. Addendum: 02/06/17 at 1752 by TIMI ZHANG RN ADMITION ORDER NEEDED. Addendum: 02/06/17 at 1753 by TIMI ZHANG RN PER MD WILL COME SEE THE PT.
[2017-02-06] MEDS ORDERED: LORAZEPAM 0.5 MG TABLET PO PRN (18:30)
[2017-02-06] MEDS ORDERED: CEFAZOLIN 1 G VIAL MC ONE (18:44)
[2017-02-06] MEDS ORDERED: SEVOFLURANE 250 ML BOTTLE IH ONE (18:44)
[2017-02-06] MEDS ORDERED: EPHEDRINE SULFATE 50 MG/ML AMPUL MC ONE (18:44)
[2017-02-06] MEDS ORDERED: PROPOFOL 200 MG/20 ML BOTTLE IV ONE (18:44)
[2017-02-06] MEDS ORDERED: IV NORMAL SALINE 1000 ML BAG IV ONE (18:44)
[2017-02-06] MEDS ORDERED: KETOROLAC TROMETHAMINE 30 MG INJ IM ONE (18:44)
[2017-02-06] MEDS ORDERED: DEXAMETHASONE SOD PHOSPHATE 4 MG INJ IV ONE (18:44)
--- NOTE | 2017-02-06 18:45 | NUR ---
DR SALDAÑA IS HERE TO ASSESS THE PT. FULL REPORT HAS GIVEN TO DR. SALDAÑA
--- NOTE | 2017-02-06 18:45 | NUR ---
CALLED LATASHA OF THE PT IN REGARDS OF BRING HOME MEDICATIONS, LEFT VOICE MAIL.
--- NOTE | 2017-02-06 18:50 | NUR ---
DR SANTOS IS ASSESSING THE PT BY THE BEDSIDE, PT REPORT WAS GIVEN TO THE DR. SANTOS, NO NEW ORDERS
--- NOTE | 2017-02-06 19:30 | NUR ---
received patient in bed ,aaox4.s/p left shoulder total revision ,removal of hard wire .with left arm sling used . left shoulder slight swelling noted post op dressing Aquacel intact no active bleeding noted .. ice packs used palce on top of the post op site shoulder . .left upper extremities elevated with pillow ,when asked patient denies pain ,offered pain medication but patient said he doesn't needs it right now advised he can have pain medication . left hand radial pulse checked normal and strong upon palpation.skin color pink good cms .patient able to moved finger and hand .good strong grasp . Addendum: 02/07/17 at 020 by MARIBELL MCKINNEY RN Amended: Links added. Addendum: 02/07/17 at 208 by MARIBELL MCKINNEY RN Amended: Links added.
--- NOTE | 2017-02-06 19:46 | NUR ---
PT IS LAYING IN BED COMFORTABLY. NO S/S OF RESPIRATORY DISTRESS NOTED, NC AT 2L. VS WNL. PT IS ABLE TO WIGGLE HIS FINGERS, SKIN IS WARM AND DRY ON TOUCH, PT IS ABLE TO FEEL WITH HIS FINGERS. PT IS ALERT, CALM. NO PAIN NOTED/REPORTED. ALL SAFETY NEEDS ARE MET.
[2017-02-06] MEDS: ATORVASTATIN 20 MG TABLET PO SCH (20:53)
[2017-02-06] MEDS: DIVALPROEX 250 MG TABLET.DR PO SCH (21:21)
[2017-02-06] MEDS: CEFAZOLIN 1 G in PREMIXED 1 EACH IV SCH (21:21)
--- NOTE | 2017-02-06 22:00 | NUR ---
patient verbalized understanding about illness and advised to used the call kaye .informed patient he has the Solano catheter but to call for n0.2.due 2200 medication given tolerated with orange juice . hob up as aspiration precaution observed. Addendum: 02/07/17 at 0212 by MARIBELL MCKINNEY RN Amended: Links added.
--- NOTE | 2017-02-06 23:15 | NUR ---
patient denies pain . left shoulder dressing clean dry and intact.arm sling used ice pack /compressed on top on the shoulder . good left hand grasp . + left pulses radial,good circulation ,movement and sensation .as per patient he want medication to help him sleep.given David. Addendum: 02/07/17 at 0209 by MARIBELL MCKINNEY RN Amended: Links added.
[2017-02-07] VITALS (12 sets, daily range): BP systolic 97–126; BP diastolic 54–73
[2017-02-07] MEDS: HYDROCODONE/APAP 10-325 MG TABLET PO PRN ×4 (05:28→20:24)
[2017-02-07] MEDS: DIVALPROEX 250 MG TABLET.DR PO SCH ×3 (05:28→21:26)
[2017-02-07] MEDS: CEFAZOLIN 1 G in PREMIXED 1 EACH IV SCH (05:28)
--- NOTE | 2017-02-07 05:28 | NUR ---
patient called for pain medication ,5 over 10 aching pain left upper shoulder post op site .medicated with [place] po prn .patient want to get oob to the chair ,hand held assist able to stand up steady of gait .am care done . bath patient and changed soiled linens and gowns.Solano care done ,escorted back to bed back to bed .
--- NOTE | 2017-02-07 07:35 | NUR ---
per elinor ok to transfer to [facility] surg. Pt is laying in bed comfortably. No s/s of respiratory distress noted. No pain noted. Full pt report given to [facility] nurse, nurse reduction plant supervisor is aware of transfer. Pt's narayanan is draining yellow urine, iv intact/patent. All safety needs are met. [facility] Neuro vascular check is done, pt is calm and cooperative.
--- NOTE | 2017-02-07 08:50 | NUR ---
Pt is transferred to [facility] floor, VS wnl, all safety needs are met. No changes noted. Medication from casette given to med surg nurse
[2017-02-07] MEDS ORDERED: CARVEDILOL 25 MG TABLET PO SCH (09:00)
[2017-02-07] MEDS ORDERED: Medication Not On Formulary EA (Multivitamin (Multi-Vitamin Daily) 1 EACH) PO SCH (09:00)
[2017-02-07] MEDS ORDERED: Medication Not On Formulary EA (Potassium Chloride (Klor-Con 8) 8 MEQ) PO SCH (09:00)
[2017-02-07] MEDS ORDERED: MISCELLANEOUS MED PO SCH (09:00)
[2017-02-07] MEDS: MULTIVITAMINS,THERAPEUTIC TABLET PO SCH (09:10)
[2017-02-07] MEDS: SPIRONOLACTONE 25 MG TABLET PO SCH (09:10)
[2017-02-07] MEDS: POTASSIUM CHLORIDE 8 MEQ CAPSULE.SA PO SCH (09:10)
[2017-02-07] MEDS: CARVEDILOL 25 MG TABLET PO SCH ×3 (09:22→18:15)
[2017-02-07] MEDS: FUROSEMIDE 20 MG TABLET PO SCH (09:23)
--- NOTE | 2017-02-07 13:51 | NUR ---
Patient discharged to rehab. for continue of care of therapy. Report given to Kelsey JUAREZ. Patient is in stable condition. Compliant and no pain presented. Alert and oriented. continued of care.
[2017-02-07] MEDS: CLOZAPINE 100 MG TABLET PO SCH (14:35)
[2017-02-07] MEDS: ENOXAPARIN SODIUM 30 MG/0.3 ML DISP.SYRIN SUBCUT SCH (14:40)
--- NOTE | 2017-02-07 18:52 | NUR ---
Patient alert and oriented. able to walk to the bathroom. complaint of pain at his shoulder medicated with pain meds as prn-effective after meds given. no pain and slept after.
[2017-02-07] MEDS: ATORVASTATIN 20 MG TABLET PO SCH (20:23)
[2017-02-07] MEDS ORDERED: PATIENT MAY USE OWN MED- MD OK PO SCH (21:00)
[2017-02-08] MEDS: ENOXAPARIN SODIUM 30 MG/0.3 ML DISP.SYRIN SUBCUT SCH ×2 (00:12→12:02)
[2017-02-08 05:19] VITALS: BP 117/77
[2017-02-08] MEDS: DIVALPROEX 250 MG TABLET.DR PO SCH ×2 (05:46→14:00)
--- NOTE | 2017-02-08 06:22 | NUR ---
PT IN BED,AWAKE, RESTING. IN NO ACUTE SIGN OF DISTRESS. S/P ORIF LEFT HUMERUS FX, DRESSING INTACT. PAIN MANAGEMENT PROVIDED AND WITH RELIEF. IMMOBILIZER IN PLACE. AMBULATORY WITH ASSISTANCE. SAFETY MEASURES RENDERED. WILL BE DISCHARGE HOME IN AM ORDERED.
--- NOTE | 2017-02-08 07:30 | NUR ---
Patient alert and oriented. no pain .v/s are stable
[2017-02-08] MEDS: CARVEDILOL 25 MG TABLET PO SCH ×2 (08:02→17:00)
[2017-02-08] MEDS: MULTIVITAMINS,THERAPEUTIC TABLET PO SCH (08:02)
[2017-02-08] MEDS: SPIRONOLACTONE 25 MG TABLET PO SCH (08:02)
[2017-02-08] MEDS: POTASSIUM CHLORIDE 8 MEQ CAPSULE.SA PO SCH (08:02)
[2017-02-08] MEDS: FUROSEMIDE 20 MG TABLET PO SCH (08:02)
[2017-02-08] MEDS: CLOZAPINE 100 MG TABLET PO SCH (08:03)
[2017-02-08] MEDS ORDERED: PATIENT MAY USE OWN MED- MD OK PO SCH (09:00)
[2017-02-08 11:15] VITALS: BP 92/52
--- NOTE | 2017-02-08 11:35 | NUR ---
pt blood pressure is 90/45 md notified ,new orders received noted and carried out.
[2017-02-08] MEDS ORDERED: IV NORMAL SALINE 500 ML IV ONE (11:45)
[2017-02-08 12:15] VITALS: BP 112/95
--- NOTE | 2017-02-08 13:17 | NUR ---
pt mental status change ,pt is lethargic md made aware ct head orders.
[2017-02-08 15:23] VITALS: BP 96/53
[2017-02-08 17:00] VITALS: BP 96/53
--- NOTE | 2017-02-08 18:59 | NUR ---
d/c orders received noted and carried out,d/c report given to rn over rehab ,pt left the facility via wheel chair in stable condition.
== END 2017-02-08 18:45 | DRG 483 ==
LOC: DS 07:29 → CCU 15:20 → MED 02-07 09:03
PROVIDERS: ADMIT Internal Medicine; ATTEND Orthopaedic Surgery Sports Medicine
PROC: 0RPK0JZ Removal of Synthetic Substitute from Left Shoulder Joint, Open Approach (ICD-10-PCS; 2017-02-06)
PROC: 4B02XSZ Measurement of Cardiac Pacemaker, External Approach (ICD-10-PCS; 2017-02-06)
PROC: 0RRK0JZ Replacement of Left Shoulder Joint with Synthetic Substitute, Open Approach (ICD-10-PCS; principal; 2017-02-06 10:14)
DX: S42.202K Unspecified fracture of upper end of left humerus, subsequent encounter for fracture with nonunion (principal); I11.0 Hypertensive heart disease with heart failure; I50.22 Chronic systolic (congestive) heart failure; I42.9 Cardiomyopathy, unspecified; M87.822 Other osteonecrosis, left humerus; E66.9 Obesity, unspecified; E78.5 Hyperlipidemia, unspecified; F17.200 Nicotine dependence, unspecified, uncomplicated; F32.9 Major depressive disorder, single episode, unspecified; R73.03 Prediabetes; Z95.810 Presence of automatic (implantable) cardiac defibrillator; G24.01 Drug induced subacute dyskinesia; Z68.26 Body mass index [BMI] 26.0-26.9, adult; F29 Unspecified psychosis not due to a substance or known physiological condition; Z96.659 Presence of unspecified artificial knee joint; X58.XXXD Exposure to other specified factors, subsequent encounter
CPT/HCPCS: 36415; 70450; 73020; 73030; 76000; 84132; 85018; 85025; 97110; 97530; A4565; A4649; A4663; C1713; J0690; J1100; J1650; J1885; J2250; J3010; J3370; J3490; J7030; J7040; J7120; P9045

== ENCOUNTER 2017-02-08 19:15 | Inpatient (IN) | payer MEDICARE ==
[~2017-02-08] VITALS: Ht 190.5 cm; Wt 95.3 kg
[2017-02-08 19:45] VITALS: BP 102/68
[2017-02-08] MEDS ORDERED: Medication Not On Formulary EA (Zolpidem Tartrate (Ambien) 10 MG) PO PRN (21:15)
[2017-02-08] MEDS ORDERED: Z GUARD REMEDY PASTE 57 GM TUBE TOP PRN (23:00)
--- NOTE | 2017-02-09 01:48 | NUR ---
PT RECEIVED FROM DAY SHIFT NURSE. pt was admitted the same time report was given. pt was admitted with use of wheelchair. rn sushma gave report and delivered pt from 2nd floor. physical and initial assessment done. pt appears shows signs of confusion. pt had a sling on left arm. no new injuries noted per report. pt put on bed alarm as he tries to get up on his own. pt is a fall risk. bed alarm on. all pertinent assessments done. pt complains of no pain. belongings list done. pt has money keys credit cards and keys placed in safe by instrument mechanics supervisor. pt also has home meds. will tell day shift to send to pharmacy when open. all belongings list placed in chart. will continue to monitor.
--- NOTE | 2017-02-09 06:45 | NUR ---
pt showed confusion and tried to get up at night. pt says a certain time but was incorrect. pt tried to get up. bed alarm on. pt had no complaints of pain. pt also had non productive cough and rales. will endorse to lieutenant shift supervisor nurse.
--- NOTE | 2017-02-09 07:00 | NUR ---
Received patient from restaurant shift leader nurse. Assessed patient, continues to be confused to place and time. Patient awake in bed soiled reported to CALL WORKER PERSON to clean patient. Patient in bed, call light in reach, side rails up. All safety precautions and needs attended. will continue to monitor.
[2017-02-09 08:00] VITALS: BP 121/71
[2017-02-09] MEDS: CLOZAPINE 100 MG TABLET PO SCH (09:00)
[2017-02-09] MEDS ORDERED: Medication Not On Formulary EA (Potassium Chloride (Klor-Con 8) 8 MEQ) PO SCH (09:00)
[2017-02-09] MEDS ORDERED: Medication Not On Formulary EA (Rosuvastatin Calcium (Crestor) 10 MG) PO SCH (09:00)
[2017-02-09] MEDS ORDERED: Medication Not On Formulary EA (Multivitamin (Multi-Vitamin Daily) 1 EACH) PO SCH (09:00)
[2017-02-09] MEDS: MULTIVITAMINS,THERAPEUTIC TABLET PO SCH (09:59)
[2017-02-09] MEDS: POTASSIUM CHLORIDE 8 MEQ CAPSULE.SA PO SCH (09:59)
[2017-02-09] MEDS: HYDROCODONE/APAP 10-325 MG TABLET PO SCH ×2 (12:05→17:27)
--- NOTE | 2017-02-09 16:30 | NUR ---
Requested Md order per patient request, Glycerin suppository for constipation. Patient stated, "I have NOT had a bowel movement in 5 days". Assessed abdomen 4 quadrants soft to touch, gurgling sounds in all quadrants and flatus present.
--- NOTE | 2017-02-09 17:30 | NUR ---
communicated to MD Mae regarding patient not compliant with using call light for assistance when getting off bed. call light in reach, bed to low setting, side rails up and no s/s of distress. needs attended and per Q1hr. patient oriented to person. Confused to place, time, and orientation.
[2017-02-09] MEDS: GLYCERIN ADULT RECTAL SUPP EACH RC PRN (19:18)
--- NOTE | 2017-02-09 19:30 | NUR ---
Received pt laying down in bed. Day shift nurse gave suppository and pt waiting to have bowel movement. AAO x2. No acute distress noted. No c/o pain or discomfort at this time. Safety measures maintained. Bed alarm on. Call light and personal belongings within reach. Will continue to monitor.
[2017-02-09 19:45] VITALS: BP 139/88
[2017-02-09] MEDS: ATORVASTATIN 20 MG TABLET PO SCH (21:16)
[2017-02-09] MEDS: ZOLPIDEM 5 MG TABLET PO SCH (21:16)
[2017-02-09] MEDS: LATUDA 40 MG PO SCH (21:16)
--- NOTE | 2017-02-09 21:30 | NUR ---
Pt stated not to wake him up if he's asleep and not to give him [place] scheduled at 0000. He stated that he would rather sleep than take [place]. Risks and benefits explained. Will continue to monitor.
[2017-02-10] MEDS: HYDROCODONE/APAP 10-325 MG TABLET PO SCH ×4 (05:52→17:39)
--- NOTE | 2017-02-10 07:46 | NUR ---
FRIEND AT BEDSIDE, SUPPORTIVE OF PATIENT CARE. AWAKE, ALERT TO SELF AND NEEDS. MADE AWAKE SAFETY PRECAUTION . ASSISTED TO BATHROOM, WANTED PRIVACY, AWARE TO USE CALL BEFORE GETTING UP. HAD BOWEL MOVEMENT NOW, PATIENT GLAD.
--- NOTE | 2017-02-10 08:15 | NUR ---
FRIEND L;EFT, APPPARENTLY , PATIENT CALLED FOR POWER NUT RUNNER OPERATOR SO HE CAN GO HOME, PATIENT AWARE NO DISCHARGE ORDER FOR NOW. WILL MONITOR FOR SAFETY,REFUSED BED ALARM, AWARE NEED FOR SAFETY
[2017-02-10] MEDS: DOCUSATE SODIUM 100 MG CAPSULE PO SCH ×3 (09:43→17:39)
[2017-02-10] MEDS: CLOZAPINE 100 MG TABLET PO SCH (09:43)
[2017-02-10] MEDS: MULTIVITAMINS,THERAPEUTIC TABLET PO SCH (09:43)
[2017-02-10] MEDS: POTASSIUM CHLORIDE 8 MEQ CAPSULE.SA PO SCH (09:43)
[2017-02-10] MEDS: LORAZEPAM 0.5 MG TABLET PO PRN (10:08)
--- NOTE | 2017-02-10 10:09 | NUR ---
PATIENT ANXIOUS AFTER THERAPY. WANTED TO SPEAK TO SIZING END BANDER REGARDING SOB AFTER THERAPY. O2 SAT CHECK 97%. NO NOTED SOB NOTED FOR NOW. VERBALIZED ANXIETY, NERVOUS. ENCOURAGED TO WATCH TV, TV ON BUT NOT WATCHING , CONTINUE TO FEEL ANXIOUS JUST STARRING AT PHONE AND WANTING TO SPEAK TO SIZING END BANDER IN 10 MINUTES. ATIVAN GIVEN ORDERED.
--- NOTE | 2017-02-10 11:46 | NUR ---
FAMILY AT BEDSIDE, SUPPORTIVE OF PATIENT CARE,. MULTIPLE REQUEST FOR ORANGE JUICE, JELLO AND PUDDING, PROVIDED.
--- NOTE | 2017-02-10 12:02 | NUR ---
REFUSED [employer] FOR NOW.
--- NOTE | 2017-02-10 12:52 | NUR ---
VERBALIZED REQUESTED FOR HIS MEDS BACK AND CTA CHEST WITH CONTRAST, MESSAGES DISCUSSED WITH DR CALIX ,PENDING RETURN CALL. GIRLFRIEND WILL BRING DIURETIC NEW PRESCRIPTION. PATIENT SLEEPING COMFORTABLY FOR NOW.
[2017-02-10] MEDS: DIVALPROEX 250 MG TABLET.DR PO SCH ×2 (13:37→17:39)
[2017-02-10 14:22] LABS: CREATININE 1.2 mg/dL (0.6-1.3)
--- NOTE | 2017-02-10 14:50 | NUR ---
pro dwyer wnl, called xray for cook pickled meat. right hand inserted with #20 gauge heplock for contrast , tolerated well .
[2017-02-10] MEDS ORDERED: IOHEXOL 350 100 ML INFUS..BTL ONE (15:18)
[2017-02-10] MEDS ORDERED: IV NORMAL SALINE 250 ML IV ONE (15:18)
[2017-02-10] MEDS ORDERED: NORMAL SALINE FLUSH 10 ML DISP.SYRIN ONE (15:18)
--- NOTE | 2017-02-10 15:30 | NUR ---
to xray for ct chest angiogram with contrast.
--- NOTE | 2017-02-10 15:52 | NUR ---
back from xray, tolerated well.
--- NOTE | 2017-02-10 18:02 | NUR ---
PATIENT AWARE, NEGATIVE RESULT OF CTA. SEEN BY DR GROVES, AWERE OF CTA RESULT ALSO.
[2017-02-10 19:30] VITALS: BP 118/70
[2017-02-10] MEDS: ZOLPIDEM 5 MG TABLET PO SCH (20:30)
[2017-02-10] MEDS: ATORVASTATIN 20 MG TABLET PO SCH (20:30)
[2017-02-10] MEDS: LATUDA 40 MG PO SCH (20:30)
[2017-02-10] MEDS: VALSARTAN PO SCH (20:31)
[2017-02-10] MEDS: SACUBITRIL PO SCH (20:31)
[2017-02-10] MEDS: [UNRECOGNIZED DRUG - OTHER] PO SCH (20:31)
--- NOTE | 2017-02-11 01:52 | NUR ---
pt seen on rounding. pt continues to show signs of confusion. pt tried to get up. bed alarm on. pt assisted to the bathroom. pt showed some wheezing and coughing. no pain noted. readjusted the sling because it was out of place. call light within reach. will continue to monitor.
[2017-02-11] MEDS: HYDROCODONE/APAP 10-325 MG TABLET PO SCH ×5 (06:28→23:27)
--- NOTE | 2017-02-11 06:31 | NUR ---
pt continues to remove sling. reapplied sling. explained to pt that physical therapist will reapply sling in the AM. pt agreed. will endorse to jet pilot nurse.
--- NOTE | 2017-02-11 07:30 | NUR ---
PATIENT NOTED RESTING IN BED WITH EYES CLOSED, COMPLAINS OF PAIN 5/10 BUT DENIES NEED FOR MEDICATION, NO SIGNS OF DISTRESS NOTED, CALL LIGHT IN REACH, BED LOCKED AND IN LOWEST POSITION, LEFT SLING IN PLACE
[2017-02-11 08:00] VITALS: BP 128/75
[2017-02-11] MEDS: DOCUSATE SODIUM 100 MG CAPSULE PO SCH ×3 (09:42→17:14)
[2017-02-11] MEDS: DIVALPROEX 250 MG TABLET.DR PO SCH ×3 (09:43→17:13)
[2017-02-11] MEDS: MULTIVITAMINS,THERAPEUTIC TABLET PO SCH (09:43)
[2017-02-11] MEDS: POTASSIUM CHLORIDE 8 MEQ CAPSULE.SA PO SCH (09:43)
[2017-02-11] MEDS: CLOZAPINE 100 MG TABLET PO SCH (09:43)
[2017-02-11] MEDS: SACUBITRIL PO SCH ×2 (09:45→20:42)
[2017-02-11] MEDS: [UNRECOGNIZED DRUG - OTHER] PO SCH ×2 (09:45→20:42)
[2017-02-11] MEDS: VALSARTAN PO SCH ×2 (09:45→20:42)
[2017-02-11 19:30] VITALS: BP 111/55
--- NOTE | 2017-02-11 20:30 | NUR ---
aaox3-4 ambulatory with standby assisst. left shoulder with arm sling on. denies any pain at this time. voiding well. will monitor patient. patient confused. redirected. bed alarm on.fall precautions maintained.
[2017-02-11] MEDS: ZOLPIDEM 5 MG TABLET PO SCH (20:38)
[2017-02-11] MEDS: ATORVASTATIN 20 MG TABLET PO SCH (20:39)
[2017-02-11] MEDS: LATUDA 40 MG PO SCH (20:39)
[2017-02-12] MEDS: LORAZEPAM 0.5 MG TABLET PO PRN (05:15)
[2017-02-12] MEDS: HYDROCODONE/APAP 10-325 MG TABLET PO SCH ×3 (05:22→18:00)
--- NOTE | 2017-02-12 06:02 | NUR ---
patient very confused. wanted to leave, saying that he needs to get a cab and he is going home, easily gets agitated. ativan 1mg given.will monitor patient's behavior. nursing brew house supervisor aware. admission discharge rn with the patient, still trying out to go out of the unit. security called and talked to him he has wait for the MD to come tjis am/ Assisted back to the room on wheelchair. SOB noted on exertion. will monitor patient.
--- NOTE | 2017-02-12 07:00 | NUR ---
Received patient awake, lying on bed with bed alarm on for safety. call light within his reach. No SOB or distress noted at this time. Encouraged patient to use call light whenever assistance is needed for safety. Will continue to closely monitor. patient.
--- NOTE | 2017-02-12 07:15 | NUR ---
Received patient awake, alert lying on bed on a high ashby's position with no SOB distress or display of discomforts. Bed alarm remained on while on bed for safety. Encouraged patient to use his call light whenever assistance is needed. will continue to monitor closely.
[2017-02-12 08:00] VITALS: BP 90/72
[2017-02-12] MEDS: DOCUSATE SODIUM 100 MG CAPSULE PO SCH ×3 (09:26→17:27)
[2017-02-12] MEDS: POTASSIUM CHLORIDE 8 MEQ CAPSULE.SA PO SCH (09:26)
[2017-02-12] MEDS: CLOZAPINE 100 MG TABLET PO SCH (09:26)
[2017-02-12] MEDS: MULTIVITAMINS,THERAPEUTIC TABLET PO SCH (09:26)
[2017-02-12] MEDS: DIVALPROEX 250 MG TABLET.DR PO SCH ×3 (09:26→17:27)
[2017-02-12] MEDS: VALSARTAN PO SCH ×2 (09:27→20:18)
[2017-02-12] MEDS: SACUBITRIL PO SCH ×2 (09:27→20:18)
[2017-02-12] MEDS: [UNRECOGNIZED DRUG - OTHER] PO SCH ×2 (09:27→20:18)
--- NOTE | 2017-02-12 12:33 | NUR ---
Upon doing rounds, patient noted asleep but easily aroused, lying on his bed on a high ashby's position with no SOB or distress noted. Assessed patient's vital signs noted with BP: 108/63, pulse rate of 87, RR: 16 with oxygen saturation of 98% on room air. Asked patient if he is in pain and per patient "no pain'. Explained to patient that his blood pressure is 108/ 63 and pain medication can lower down BP. patient agreed. Will continue to monitor.
--- NOTE | 2017-02-12 14:52 | NUR ---
Patient asleep, lying on bed easily aroused with no SOB, distress or any discomforts at this time. Seen and examined by Dr. Cintron with no new orders at this time. Will continue to monitor patient closely.
--- NOTE | 2017-02-12 15:25 | NUR ---
Compliance Lead: Biopsychosocial Assessment Bio: SW met with patient at bedside to assess for needs and provide support. Patient is a 66-year-old male admitted to ARU due to functional decline and impaired ADLs. Patient had elective repair of left nonunion fracture. Patient reported that he is experiencing some pain, but is still able to participate in therapies. Patient reported that he was independent prior to hospitalization. Mental Status: Patient appeared alert and oriented x3 during interview. Patient presented as lethargic with a depressed mood and flat affect. His eye contact was poor. He reported that he feels "debilitated." Patient has been in the hospital since February 08, 2017. Per patient chart, he has a history of depression and is currently on [place]. Patient is calm and cooperative. He appears to be coping well with PT and OT and stated that it is his "favorite part of the day." Social: Patient currently lives home alone. He reported that he receives a lot of support from his friends and his girlfriend. He has been visited by both friends and family since being in the hospital. Goals: Patient stated that his goal is "to get out of here." Interventions: SW engaged in active listening. SW provided emotional support and counseling. Patient stated he may need assistance finding an outpatient OT. SW will provide linkage to case management. SW will provide mental health referrals if needed. SW will encourage patient to comply with rehab goals.
[2017-02-12] MEDS: GLYCERIN ADULT RECTAL SUPP EACH RC PRN (16:02)
[2017-02-12] MEDS: CARVEDILOL 12.5 MG TABLET PO SCH (18:00)
--- NOTE | 2017-02-12 18:00 | NUR ---
Patient was seen and examined by Dr. Bob (Last Putter Away) with new orders to start patient on Coreg 12.5 mg tablet orally twice daily, Aldactone 25 mg daily and Lasix 20 mg twice daily. patient made aware and agreed. Orders noted and carried out.
--- NOTE | 2017-02-12 18:28 | NUR ---
patient awake, alert and oriented, lying on bed on a semi- ashby's position with no SOB, distress noted. patient noted with vital signs as follows: BP: 110/65/ TN 89 bpm oxygen saturation of 96 % on room air and temp of 98.2. Offered patient his Conifer 10-325 mg as ordered for routine pain management but patient refused to take his Conifer according to him he is not on pain for now. held patient's Coreg due to BP of 110/65 mmHg. MD made aware. Will continue to monitor. Call light placed within his reach. Encouraged patient to use call light whenever assistance is needed.
[2017-02-12 19:45] VITALS: BP 102/63
[2017-02-12] MEDS: ZOLPIDEM 5 MG TABLET PO SCH (20:17)
[2017-02-12] MEDS: ATORVASTATIN 20 MG TABLET PO SCH (20:17)
[2017-02-12] MEDS: LATUDA 40 MG PO SCH (20:18)
--- NOTE | 2017-02-12 21:50 | NUR ---
p[t seen on rounding. pt requested to have joshua. pt seen reviewing his meds for discharge. pt states that he would like to be discharged in the am. pt seen by nav and wants the patient to be discharged tomorrow. no sob noted. vitals stable. pt agreed to have norco and ativan combined for a better. sleep. pm meds given. will continue to monitor.
--- NOTE | 2017-02-13 06:50 | NUR ---
pt slept throuhgout the night. pt given sleeping meds. pt had no beligerent episodes. monitored as needed. sling on. no new orders. will continue to monitor.
[2017-02-13 07:18] LABS: BASOPHILS # (AUTO) 0.1 K/uL (0.0-8.0); BASOPHILS % (AUTO) 1.2 % (0.0-2.0); EOSINOPHILS # (AUTO) 0.2 K/uL (0.0-0.7); EOSINOPHILS % (AUTO) 3.4 % (0.0-7.0); HEMATOCRIT 24.1 % (36.7-47.1); HEMOGLOBIN 8.4 g/dL (12.5-16.3); LYMPHOCYTES # (AUTO) 1.6 K/uL (20.0-40.0); MEAN CORPUSCULAR HEMOGLOBIN 33.3 uug (23.8-33.4); MEAN CORPUSCULAR HGB CONC 35 g/dL (32.5-36.3); MEAN CORPUSCULAR VOLUME 95.7 fL (73.0-96.2); MONOCYTES # (AUTO) 0.6 K/uL (2.0-10.0); MONOCYTES % (AUTO) 9.7 % (0.0-11.0); NEUTROPHILS # (AUTO) 3.4 K/uL (1.8-8.9); NEUTROPHILS % (AUTO) 58.7 % (38.5-71.5); PLATELET COUNT (AUTO) 236 K/uL (152-348); RED BLOOD CELL COUNT(AUTO) 2.52 MIL/uL (4.06-5.63); WHITE BLOOD COUNT (AUTO) 5.8 K/uL (3.6-10.2)
--- NOTE | 2017-02-13 07:20 | NUR ---
Received patient awake, alert lying on his bed on a semi- ashby's position with no SOB, distress or display of discomforts. patient denies pain at this time but verbalized he is slightly anxious. patient was encouraged to verbalize his feelings. patient requested if he can have his Ativan since he is feeling slightly anxious. Vital signs were assessed with BP: 145/ 75 and NJ of 90, RR: 18 with oxygen saturation of 99% on room air and temp of 98.2 F taken orally. Ativan was administered. Will continue to closely monitor the patient. All his needs were attended and anticipated. Call light within his reach.
[2017-02-13] MEDS: LORAZEPAM 0.5 MG TABLET PO PRN ×2 (07:24→20:23)
[2017-02-13 07:52] VITALS: BP 145/73
[2017-02-13] MEDS: DOCUSATE SODIUM 100 MG CAPSULE PO SCH ×3 (08:30→16:56)
[2017-02-13] MEDS: FUROSEMIDE 20 MG TABLET PO SCH ×2 (08:31→16:57)
[2017-02-13] MEDS: SPIRONOLACTONE 25 MG TABLET PO SCH (08:31)
[2017-02-13] MEDS: CARVEDILOL 12.5 MG TABLET PO SCH ×2 (08:31→17:32)
[2017-02-13] MEDS: POTASSIUM CHLORIDE 8 MEQ CAPSULE.SA PO SCH (08:31)
[2017-02-13] MEDS: MULTIVITAMINS,THERAPEUTIC TABLET PO SCH (08:31)
[2017-02-13] MEDS: [UNRECOGNIZED DRUG - OTHER] PO SCH ×2 (08:32→20:21)
[2017-02-13] MEDS: CLOZAPINE 100 MG TABLET PO SCH (08:32)
[2017-02-13] MEDS: VALSARTAN PO SCH ×2 (08:32→20:21)
[2017-02-13] MEDS: SACUBITRIL PO SCH ×2 (08:32→20:21)
[2017-02-13] MEDS: DIVALPROEX 250 MG TABLET.DR PO SCH ×3 (08:32→16:56)
--- NOTE | 2017-02-13 09:20 | NUR ---
patient awake, alert with periods of forgetfulness, vital signs within normal limits. All due medications were given, all were tolerated well. No SOB distress or any discomforts at this time. All needs were attended and anticipated. Patient refused to change his clothes from last night. call light placed within reach. Will continue to monitor.
--- NOTE | 2017-02-13 10:16 | NUR ---
Seen and examined by Dr. Cintron with no new orders. Informed MD regarding CBC results with no new order. patient made aware.
--- NOTE | 2017-02-13 10:40 | NUR ---
Seen and examined by Dr. Bob (Interactive Media Project Manager) with no new order.
[2017-02-13 11:01] LABS: EOSINOPHILS % (MANUAL) 3 % (0-8); LYMPHOCYTES % (MANUAL) 27 % (20-40); MONOCYTES % (MANUAL) 9 % (2-10); NEUTROPHILS % (MANUAL) 61 % (42-75)
[2017-02-13] MEDS: HYDROCODONE/APAP 10-325 MG TABLET PO SCH ×4 (12:01→23:17)
--- NOTE | 2017-02-13 13:58 | NUR ---
INTERDISCIPLINARY TEAM CONFERENCE
--- NOTE | 2017-02-13 18:38 | NUR ---
Patient lying on bed on a semi- ashby's position with no SOB distress or any complaints of discomforts at this time. All his needs were attended and anticipated. call light placed within reach. Bed alarm put on for patient's safety. Encouraged patient to use call light whenever assistance is needed especially when going into the bathroom for safety. Will continue to monitor.
[2017-02-13 19:30] VITALS: BP 119/60
[2017-02-13] MEDS: ATORVASTATIN 20 MG TABLET PO SCH (20:20)
[2017-02-13] MEDS: ZOLPIDEM 5 MG TABLET PO SCH (20:21)
[2017-02-13] MEDS: LATUDA 40 MG PO SCH (20:21)
--- NOTE | 2017-02-13 20:30 | NUR ---
Received pt sitting on his bed, alert and awake. No acute distress noted. Denies pain during this time. Breathing even and unlabored with normal respirations. All due meds given as ordered and well tolerated. bed alarm on. Encouraged pt to verbalize needs and concerns and to call if assistance needed, verbalized understanding. Safety measures observed and maintained. Call light within reach. All needs attended. Will continue to monitor.
[2017-02-14] MEDS: HYDROCODONE/APAP 10-325 MG TABLET PO SCH (06:00)
--- NOTE | 2017-02-14 06:53 | NUR ---
pt. slept the entire shift, no signs of any distress. All due meds given. All needs attended to. Pt. kept clean, dry and comfortable. Will endorse to next shift.
[2017-02-14] MEDS: CARVEDILOL 12.5 MG TABLET PO SCH (08:00)
[2017-02-14] MEDS: LORAZEPAM 0.5 MG TABLET PO PRN (08:11)
[2017-02-14] MEDS: SPIRONOLACTONE 25 MG TABLET PO SCH (08:12)
[2017-02-14] MEDS: POTASSIUM CHLORIDE 8 MEQ CAPSULE.SA PO SCH (08:12)
[2017-02-14] MEDS: MULTIVITAMINS,THERAPEUTIC TABLET PO SCH (08:12)
[2017-02-14] MEDS: DOCUSATE SODIUM 100 MG CAPSULE PO SCH (08:12)
[2017-02-14] MEDS: FUROSEMIDE 20 MG TABLET PO SCH (08:12)
[2017-02-14] MEDS: DIVALPROEX 250 MG TABLET.DR PO SCH (08:13)
[2017-02-14] MEDS: CLOZAPINE 100 MG TABLET PO SCH (09:49)
[2017-02-14] MEDS: SACUBITRIL PO SCH (09:50)
[2017-02-14] MEDS: [UNRECOGNIZED DRUG - OTHER] PO SCH (09:50)
[2017-02-14] MEDS: VALSARTAN PO SCH (09:50)
--- NOTE | 2017-02-14 09:55 | NUR ---
SBAR report received, board updated. Pt awake, alert, oriented x4. No c/o pain. Pt compliant with routine morning medications, requested Ativan for mild anxiety r/t anticipated d/c at noon, administered per PRN orders. project engineering manager currently consulting with Pt r/t discharge concerns, Pt verbalizes willingness to actively participate in last day of therapy as scheduled. All safety and comfort measures met. Call light placed within reach. Will continue to monitor.
[2017-02-14 11:18] VITALS: BP_SYST 106; BP_SYST 118; BP_DIAS 46; BP_DIAS 62
--- NOTE | 2017-02-14 12:30 | NUR ---
Pt discharge instructions review with Pt and girlfriend, signed, copied, and placed in chart. V/S taken 100/64, 20RR, 68 HR, temp 97.7, Pt reports feeling "well, enough to go home". Follow up appointments reviewed. All at home medications returned to Pt. Medications reconciled. Skin integrity intact, not necessary to take pictures. Wrist band removed. Pt escorted out to private car by wheelchair.
== END 2017-02-14 12:20 | disposition still patient (30) | DRG 560 ==
PROVIDERS: ADMIT Physical Medicine & Rehabilitation Pain Medicine; ATTEND Physical Medicine & Rehabilitation Pain Medicine
DX: Z47.1 Aftercare following joint replacement surgery (principal); I42.9 Cardiomyopathy, unspecified; I11.0 Hypertensive heart disease with heart failure; I50.22 Chronic systolic (congestive) heart failure; Z96.612 Presence of left artificial shoulder joint; E66.9 Obesity, unspecified; Z68.26 Body mass index [BMI] 26.0-26.9, adult; R73.03 Prediabetes; F29 Unspecified psychosis not due to a substance or known physiological condition; F32.9 Major depressive disorder, single episode, unspecified; G24.01 Drug induced subacute dyskinesia; I10 Essential (primary) hypertension; R53.1 Weakness; E78.5 Hyperlipidemia, unspecified; Z95.810 Presence of automatic (implantable) cardiac defibrillator; F41.9 Anxiety disorder, unspecified; I70.8 Atherosclerosis of other arteries; I73.9 Peripheral vascular disease, unspecified; G40.909 Epilepsy, unspecified, not intractable, without status epilepticus
CPT/HCPCS: 36415; 71275; 85025; 92507; 92523; 97110; 97112; 97116; 97165; 97530; 97535; A4663; J3490; J7050; Q9967

== ENCOUNTER 2017-05-17 13:31 | Outpatient (CLI) | payer MEDICARE ==
[2017-05-17 14:43] LABS: *BILIRUBIN,URIN NEGATIVE (NEGATIVE); *BLOOD, URINE Trace-intact (NEGATIVE); *CLARITY,URINE CLEAR (CLEAR); *COLOR,URINE YELLOW (YELLOW); *KETONES,URINE 1+ (NEGATIVE); *PROTEIN,URINE TRACE (NEGATIVE); *UROBILINOGEN,URINE 0.2 E.U./dl (NORMAL); LEUKOCYTE ESTERASE ,URINE TRACE (NEGATIVE); NITRITE, URINE NEGATIVE (NEGATIVE); PH,URINE 5.5 (5.0-8.0); UGLUCOSE NEGATIVE (NEGATIVE)
[2017-05-17 14:47] LABS: BASOPHILS # (AUTO) 0.1 K/uL (0.0-8.0); BASOPHILS % (AUTO) 0.8 % (0.0-2.0); EOSINOPHILS # (AUTO) 0.1 K/uL (0.0-0.7); EOSINOPHILS % (AUTO) 2.2 % (0.0-7.0); HEMATOCRIT 43.9 % (36.7-47.1); HEMOGLOBIN 14.8 g/dL (12.5-16.3); LYMPHOCYTES # (AUTO) 1.7 K/uL (20.0-40.0); LYMPHOCYTES % (AUTO) 26.3 % (20.5-51.5); MEAN CORPUSCULAR HEMOGLOBIN 30.8 uug (23.8-33.4); MEAN CORPUSCULAR HGB CONC 34 g/dL (32.5-36.3); MEAN CORPUSCULAR VOLUME 91.4 fL (73.0-96.2); MONOCYTES # (AUTO) 0.6 K/uL (2.0-10.0); NEUTROPHILS # (AUTO) 4.1 K/uL (1.8-8.9); NEUTROPHILS % (AUTO) 61.7 % (38.5-71.5); PLATELET COUNT (AUTO) 169 K/uL (152-348); WHITE BLOOD COUNT (AUTO) 6.6 K/uL (3.6-10.2)
[2017-05-17 14:53] LABS: CREATININE 1.3 mg/dL (0.6-1.3); POTASSIUM 4.1 mmol/L (3.5-5.1)
[2017-05-17 15:08] LABS: BACTERIA,URINE FEW /HPF (NONE SEEN); SQUAMOUS EPITHELIAL CELL,UR MODERATE /HPF (NONE SEEN)
== END 2017-05-17 23:59 | disposition home or self-care (01) ==
LOC: LAB 13:31
PROVIDERS: ATTEND Orthopaedic Surgery Sports Medicine
DX: Z01.818 Encounter for other preprocedural examination (principal); M75.121 Complete rotator cuff tear or rupture of right shoulder, not specified as traumatic; M75.02 Adhesive capsulitis of left shoulder
CPT/HCPCS: 36415; 85025; 85730

== ENCOUNTER 2017-05-21 06:39 | Day surgery (SDC) | payer MEDICARE ==
[2017-05-21] MEDS ORDERED: GLYCOPYRROLATE 0.2 MG/ML VIAL MC ONE (06:40)
[2017-05-21] MEDS ORDERED: PROPOFOL 200 MG/20 ML BOTTLE IV ONE (06:40)
[2017-05-21] MEDS ORDERED: CEFAZOLIN 1 G VIAL MC ONE (06:40)
[2017-05-21] MEDS ORDERED: IV LACTATED RINGERS SOLUTION 1,000 ML BAG IV ONE (06:40)
[2017-05-21] MEDS ORDERED: LIDOCAINE HCL 2% 20 ML VIAL MC ONE (06:40)
[2017-05-21] MEDS ORDERED: DEXAMETHASONE SOD PHOSPHATE 4 MG INJ IV ONE (06:40)
[2017-05-21] MEDS ORDERED: NEOSTIGMINE METHYLSULFATE 10 MG/10 ML VIAL IV ONE (06:40)
[2017-05-21] MEDS ORDERED: ETOMIDATE 20 MG/10 ML VIAL MC ONE (06:40)
[2017-05-21] MEDS ORDERED: KETOROLAC TROMETHAMINE 30 MG INJ IM ONE (06:40)
[2017-05-21] MEDS ORDERED: ONDANSETRON 4 MG/2 ML VIAL IV ONE (06:40)
[2017-05-21] MEDS ORDERED: EPHEDRINE SULFATE 50 MG/ML AMPUL MC ONE (06:40)
[2017-05-21] MEDS ORDERED: POLYMYXIN B SULFATE 500,000 UNITS, BACITRACIN 50,000 UNITS, NORMAL SALINE 20 ML MC ONE ×3 (07:15)
[2017-05-21] MEDS ORDERED: ROCURONIUM BROMIDE 50 MG/5 ML VIAL ONE (08:12)
[2017-05-21] MEDS ORDERED: FENTANYL CITRATE 100 MCG/2 ML AMPUL ONE ×2 (08:12→11:20)
[2017-05-21] MEDS ORDERED: DESFLURANE ANESTHESIA GAS 240 ML BOTTLE ONE (08:20)
[2017-05-21] MEDS ORDERED: BUPIVACAINE PF 0.5% 30 ML VIAL ONE (09:34)
[2017-05-21] MEDS ORDERED: VANCOMYCIN 1000 MG VIAL ONE (09:50)
== END 2017-05-21 13:10 | disposition home or self-care (01) ==
LOC: DS 06:39
PROVIDERS: ATTEND Orthopaedic Surgery Sports Medicine
DX: M75.101 Unspecified rotator cuff tear or rupture of right shoulder, not specified as traumatic (principal); M75.41 Impingement syndrome of right shoulder; M75.02 Adhesive capsulitis of left shoulder; Z98.890 Other specified postprocedural states; F32.9 Major depressive disorder, single episode, unspecified; I11.0 Hypertensive heart disease with heart failure; M19.90 Unspecified osteoarthritis, unspecified site; Z95.0 Presence of cardiac pacemaker; Z95.5 Presence of coronary angioplasty implant and graft; I25.10 Atherosclerotic heart disease of native coronary artery without angina pectoris
CPT/HCPCS: 23410; 23700; A4649; J0690; J1100; J1885; J2405; J2710; J3010; J3370; J3490 ×9; J7120; A4565

== ENCOUNTER 2017-07-02 11:35 | Outpatient (CLI) | payer MEDICARE | END 2017-07-02 23:59 | disposition home or self-care (01) | LOC: RAD 11:35 | DX: I67.82 Cerebral ischemia (principal); I67.2 Cerebral atherosclerosis | CPT/HCPCS: 70450 ==

== ENCOUNTER → 2017-10-03 | Outpatient (CLI) | payer MEDICARE | END | disposition home or self-care (01) | LOC: LAB 16:31 | DX: R79.9 Abnormal finding of blood chemistry, unspecified (principal); I11.0 Hypertensive heart disease with heart failure; I25.10 Atherosclerotic heart disease of native coronary artery without angina pectoris; I67.2 Cerebral atherosclerosis | CPT/HCPCS: 36415 ==

== ENCOUNTER 2017-12-22 22:58 | Inpatient (IN) | payer MEDICARE ==
[~2017-12-22] VITALS: Ht 190.5 cm; Wt 95.3 kg
[~2017-12-22 22:58] MED LIST changes: -RAMI10CA PO; +RAMI10CA69 PO
--- NOTE | 2017-12-22 23:11 | NUR ---
XRAY AT BEDSIDE.
[2017-12-22 23:31] LABS: BASOPHILS % (AUTO) 0.5 % (0.0-2.0); EOSINOPHILS # (AUTO) 0.1 K/uL (0.0-0.7); EOSINOPHILS % (AUTO) 1.2 % (0.0-7.0); HEMATOCRIT 37.9 % (36.7-47.1); HEMOGLOBIN 13.2 g/dL (12.5-16.3); LYMPHOCYTES # (AUTO) 0.9 K/uL (20.0-40.0); LYMPHOCYTES % (AUTO) 11.8 % (20.5-51.5); MEAN CORPUSCULAR HEMOGLOBIN 33.5 uug (23.8-33.4); MEAN CORPUSCULAR HGB CONC 35 g/dL (32.5-36.3); MEAN CORPUSCULAR VOLUME 95.8 fL (73.0-96.2); MONOCYTES # (AUTO) 0.6 K/uL (2.0-10.0); NEUTROPHILS # (AUTO) 5.9 K/uL (1.8-8.9); NEUTROPHILS % (AUTO) 78.5 % (38.5-71.5); PLATELET COUNT (AUTO) 136 K/uL (152-348); RED BLOOD CELL COUNT(AUTO) 3.95 MIL/uL (4.06-5.63); WHITE BLOOD COUNT (AUTO) 7.6 K/uL (3.6-10.2)
--- NOTE | 2017-12-22 23:39 | NUR ---
PT BIBA [id number] WITH C/O GENERALIZED WEAKNESS. PT LIVES ALONE AT HOME AND PER PT, FELL AND WAS UNABLE TO GET UP. PT STATES HE USES A QUAD CANE AT HOME. PT IS INCONTINENT OF URINE & STOOL. PT IS AAOX3. PT ABLE TO MOVE ALL EXTREMITIES. RESPONSIVE TO VERBAL + TACTILE STIMULI. SPEECH CLEAR. VSS.
[2017-12-22 23:50] LABS: BILIRUBIN,DIRECT 0.1 mg/dL (0.0-0.2); BILIRUBIN,TOTAL 0.2 mg/dL (0.2-1.0); CREATININE 1.5 mg/dL (0.6-1.3); POTASSIUM 4.1 mmol/L (3.5-5.1); TOTAL PROTEIN, SERUM 6.8 g/dL (6.4-8.2)
[2017-12-22] MEDS ORDERED: IV NORMAL SALINE 500 ML IV ONE (23:58)
[2017-12-23] MEDS ORDERED: HYDROCODONE/APAP 5-325MG TABLET PO PRN (01:45)
[2017-12-23] MEDS ORDERED: Z GUARD REMEDY PASTE 57 GM TUBE TOP PRN (01:45)
[2017-12-23] MEDS ORDERED: MAGNESIUM HYDROXIDE 30 ML LIQUID UDC PO PRN (01:45)
[2017-12-23] MEDS ORDERED: ACETAMINOPHEN 325 MG TABLET PO PRN (01:45)
[2017-12-23] MEDS ORDERED: ONDANSETRON 4 MG/2 ML VIAL IV PRN (01:45)
--- NOTE | 2017-12-23 02:09 | NUR ---
Pt. admitted to MED/SURG , under care of Dr. DAVID SONI. DX: GENERALIZED WEAKNESS. Belongs List completed. Report given to Sammy JUAREZ.
--- NOTE | 2017-12-23 02:32 | NUR ---
Pt admitted in medsurg unit alert awake and oriented in no acute distress. Able to make needs known. Several bruises noted bilateral knees and posterior right side waist. Chest noted with redness. Awaiting admitting orders. Will continue to monitor. 2 side rails raised with call light placed within reach. Will continue to monitor. BP 120/54, T 97.7 hr 85 o2 sat 95% RR 18.
[2017-12-23 03:00] VITALS: BP 120/54
[2017-12-23 04:00] VITALS: BP 117/61
--- NOTE | 2017-12-23 04:06 | NUR ---
Pt admitted under telemetry with sinus rhythm with v-pacing noted on monitor .
--- NOTE | 2017-12-23 06:30 | NUR ---
PATIENT ASLEEP WITH NO C/O SOB, PAIN, OR DISCOMFORT. STATES HIS WEAKNESS TO UPPER AND LOWER EXTREMITIES. PT STATED UPON ASSESSMENT HE "FELL OUT OF HIS BED". V/S ARE WNL. SOFTWARE SUPPORT TECHNICIAN SHOWING UNDERLINING RHYTHM IS SINUS. CALL LIGHT WITHIN REACH. WILL CONTINUE TO MONITOR. PRN MEDICATIONS ON HAND. DAVID SONI STATED CARDIAC DIET.
--- NOTE | 2017-12-23 11:01 | NUR ---
seen by mau Grimes. Addendum: 12/23/17 at 1101 by YING OGLESBY RN Amended: Links added.
--- NOTE | 2017-12-23 11:18 | NUR ---
hemodialysis started by HD RN Addendum: 12/23/17 at 1118 by YING OGLESBY RN Amended: Links added. Addendum: 12/23/17 at 1119 by YING OGLESBY RN above entry intedded for another patient
--- NOTE | 2017-12-23 11:19 | NUR ---
previous entry re HD is intended for another patient
[2017-12-23 11:43] VITALS: BP 126/66
[2017-12-23] MEDS ORDERED: BACITRACIN ZINC OINT 15 GM TUBE TOP PRN (11:45)
--- NOTE | 2017-12-23 12:51 | NUR ---
WOUND CARE CONSULT: PT PRESENTS WITH RASH TO GROIN AREAS, DRY ABRASIONS AND BRUISES TO KNEES, LOWER LEGS AND TOES, PRESENT ON ADMISSION. CALLUSES NOTED TO FEET. ALL SKIN PROTECTION AND SKIN CARE RECOMMENDATIONS DISCUSSED WITH NURSING STAFF. WILL SEE PRN. CURRENT FABIO SCORE IS 14. Addendum: 12/23/17 at 1253 by EVANS MANDEL RN Amended: Links added.
--- NOTE | 2017-12-23 13:30 | NUR ---
seen by dr chad Wilkinson. discharge orders received. IV saline lock and tele monitor removed. supervisor real estate office Serene called by dr Witt for a supervisor opening and picking
--- NOTE | 2017-12-23 14:20 | NUR ---
PATIENT DISCHARGED TO HOME. EXIT LONG-TERM INSTRUCTIONS GIVEN. Addendum: 12/23/17 at 1420 by YING OGLESBY RN Amended: Kris added. Addendum: 12/23/17 at 1421 by YING OGLESBY RN Amended: Kris added.
[2017-12-23] MEDS ORDERED: CLOTRIMAZOLE 1% CREAM 30 GM TUBE TOP SCH (17:00)
== END 2017-12-23 14:15 | disposition home or self-care (01) | DRG 56 ==
LOC: ER 22:59 → MED 12-23 02:20 → TELE 12-23 04:05
DX: G20 Parkinson's disease (principal); N17.0 Acute kidney failure with tubular necrosis; I50.22 Chronic systolic (congestive) heart failure; I42.9 Cardiomyopathy, unspecified; I13.0 Hypertensive heart and chronic kidney disease with heart failure and stage 1 through stage 4 chronic kidney disease, or unspecified chronic kidney disease; E87.2 Acidosis; E86.0 Dehydration; R53.1 Weakness; E78.5 Hyperlipidemia, unspecified; F32.9 Major depressive disorder, single episode, unspecified; J45.909 Unspecified asthma, uncomplicated; N18.9 Chronic kidney disease, unspecified; G24.01 Drug induced subacute dyskinesia; Z95.810 Presence of automatic (implantable) cardiac defibrillator; W06.XXXA Fall from bed, initial encounter; Y92.003 Bedroom of unspecified non-institutional (private) residence as the place of occurrence of the external cause; R56.9 Unspecified convulsions; I95.9 Hypotension, unspecified; I73.9 Peripheral vascular disease, unspecified
CPT/HCPCS: 36415; 70030-TC; 71045; 83605; 85025; 85730; 87040; 93005; A4663; J7050

== ENCOUNTER 2018-04-14 09:52 | Inpatient (IN) | payer MEDICARE ==
[~2018-04-14] VITALS: Ht 190.5 cm; Wt 66.8 kg
[~2018-04-14 09:52] MED LIST changes: -AMOX-430 PO; -HYDR-548 PO; -LORA-258 PO; -MULT-1045 PO; -ROSU10TA PO; +ROSU10TA2 PO; -ZOLP10TA2 PO
[2018-04-14] MEDS ORDERED: HYDROMORPHONE 2 MG/1 ML DISP.SYRIN ONE (11:18)
[2018-04-14] MEDS ORDERED: ROCURONIUM BROMIDE 50 MG/5 ML VIAL ONE (11:19)
[2018-04-14] MEDS ORDERED: MIDAZOLAM HCL 2 MG/2 ML VIAL ONE (11:19)
[2018-04-14 11:33] LABS: BASOPHILS # (AUTO) 0.1 K/uL (0.0-8.0); BASOPHILS % (AUTO) 0.8 % (0.0-2.0); EOSINOPHILS # (AUTO) 0.1 K/uL (0.0-0.7); HEMATOCRIT 33.1 % (36.7-47.1); HEMOGLOBIN 11.3 g/dL (12.5-16.3); LYMPHOCYTES # (AUTO) 0.8 K/uL (20.0-40.0); LYMPHOCYTES % (AUTO) 12.9 % (20.5-51.5); MEAN CORPUSCULAR HEMOGLOBIN 33.7 uug (23.8-33.4); MEAN CORPUSCULAR HGB CONC 34 g/dL (32.5-36.3); MEAN CORPUSCULAR VOLUME 98.8 fL (73.0-96.2); MONOCYTES # (AUTO) 0.9 K/uL (2.0-10.0); NEUTROPHILS # (AUTO) 4.7 K/uL (1.8-8.9); NEUTROPHILS % (AUTO) 71.3 % (38.5-71.5); PLATELET COUNT (AUTO) 138 K/uL (152-348); RED BLOOD CELL COUNT(AUTO) 3.35 MIL/uL (4.06-5.63); WHITE BLOOD COUNT (AUTO) 6.6 K/uL (3.6-10.2)
[2018-04-14 11:38] LABS: CREATININE 1.2 mg/dL (0.6-1.3); POTASSIUM 3.7 mmol/L (3.5-5.1)
[2018-04-14 11:44] LABS: BILIRUBIN,TOTAL 0.5 mg/dL (0.2-1.0); TOTAL PROTEIN, SERUM 6.4 g/dL (6.4-8.2)
[2018-04-14] MEDS ORDERED: POLYMYXIN B SULFATE 500,000 UNITS, BACITRACIN 50,000 UNITS, NORMAL SALINE 20 ML MC ONE ×3 (11:45)
[2018-04-14 15:09] VITALS: BP 109/64
[2018-04-14] MEDS ORDERED: MORPHINE SULFATE 2 MG/1 ML DISP.SYRIN IV PRN (15:45)
[2018-04-14] MEDS ORDERED: ONDANSETRON 4 MG/2 ML VIAL IV PRN (15:45)
[2018-04-14 20:02] VITALS: BP 132/54
[2018-04-14] MEDS: DOCUSATE SODIUM 100 MG CAPSULE PO SCH (20:44)
[2018-04-14] MEDS ORDERED: DOCUSATE SODIUM 250 MG CAPSULE PO SCH (21:00)
[2018-04-14] MEDS: MORPHINE SULFATE 4 MG/1 ML DISP.SYRIN IV PRN (22:54)
[2018-04-15 00:47] VITALS: BP 125/64
[2018-04-15 04:00] VITALS: BP 125/52
[2018-04-15] MEDS: PANTOPRAZOLE SODIUM 40 MG TABLET.DR PO SCH (06:02)
[2018-04-15 07:42] LABS: BASOPHILS % (AUTO) 0.9 % (0.0-2.0); EOSINOPHILS # (AUTO) 0.1 K/uL (0.0-0.7); EOSINOPHILS % (AUTO) 2.6 % (0.0-7.0); HEMATOCRIT 30.4 % (36.7-47.1); HEMOGLOBIN 10.6 g/dL (12.5-16.3); LYMPHOCYTES # (AUTO) 1.1 K/uL (20.0-40.0); LYMPHOCYTES % (AUTO) 21.1 % (20.5-51.5); MEAN CORPUSCULAR HEMOGLOBIN 34.3 uug (23.8-33.4); MEAN CORPUSCULAR HGB CONC 35 g/dL (32.5-36.3); MONOCYTES # (AUTO) 0.7 K/uL (2.0-10.0); MONOCYTES % (AUTO) 13.5 % (0.0-11.0); NEUTROPHILS # (AUTO) 3.2 K/uL (1.8-8.9); NEUTROPHILS % (AUTO) 61.9 % (38.5-71.5); PLATELET COUNT (AUTO) 154 K/uL (152-348); WHITE BLOOD COUNT (AUTO) 5.1 K/uL (3.6-10.2)
[2018-04-15 08:28] LABS: BILIRUBIN,TOTAL 0.4 mg/dL (0.2-1.0); CREATININE 0.9 mg/dL (0.6-1.3); MAGNESIUM 2.2 mg/dL (1.8-2.4); PHOSPHOROUS 2.9 mg/dL (2.5-4.9)
[2018-04-15] MEDS: CLOZAPINE 100 MG TABLET PO SCH (08:38)
[2018-04-15 11:01] VITALS: BP 99/52
[2018-04-15] MEDS: ACETAzolamide SODIUM 500 MG VIAL IV SCH (14:15)
[2018-04-15 15:03] VITALS: BP 111/68
[2018-04-15] MEDS: CARVEDILOL 12.5 MG TABLET PO SCH (17:48)
[2018-04-15] MEDS: ALBUTEROL SULFATE 2.5 MG/3 ML NEBU NEB PRN (19:56)
[2018-04-15] MEDS: DOCUSATE SODIUM 100 MG CAPSULE PO SCH (19:59)
[2018-04-15 20:00] VITALS: BP 115/59
[2018-04-16] VITALS (7 sets, daily range): BP systolic 101–136; BP diastolic 66–79
[2018-04-16] MEDS: ALBUTEROL SULFATE 2.5 MG/3 ML NEBU NEB PRN (01:12)
[2018-04-16] MEDS: MORPHINE SULFATE 4 MG/1 ML DISP.SYRIN IV PRN ×2 (02:38→21:26)
[2018-04-16] MEDS: PANTOPRAZOLE SODIUM 40 MG TABLET.DR PO SCH (04:19)
[2018-04-16 05:18] LABS: *BILIRUBIN,URIN NEGATIVE (NEGATIVE); *BLOOD, URINE NEGATIVE (NEGATIVE); *CLARITY,URINE CLOUDY (CLEAR); *COLOR,URINE YELLOW (YELLOW); *KETONES,URINE NEGATIVE (NEGATIVE); *UROBILINOGEN,URINE 0.2 E.U./dl (NORMAL); LEUKOCYTE ESTERASE ,URINE NEGATIVE (NEGATIVE); NITRITE, URINE NEGATIVE (NEGATIVE); PH,URINE >=9.0 (5.0-8.0); UGLUCOSE NEGATIVE (NEGATIVE)
[2018-04-16 05:29] LABS: BACTERIA,URINE NONE SEEN /HPF (NONE SEEN); RBC,URINE NONE SEEN /HPF (0-3); SQUAMOUS EPITHELIAL CELL,UR FEW /HPF (NONE SEEN); URINE AMORPHOUS PHOSPHATES MANY /HPF; WBC,URINE 0-3 /HPF (0-3)
[2018-04-16] MEDS ORDERED: BUPIVACAINE 0.25% 30 ML VIAL ONE (07:44)
[2018-04-16] MEDS ORDERED: VANCOMYCIN 1000 MG VIAL ONE (07:46)
[2018-04-16] MEDS ORDERED: HYDROMORPHONE 2 MG/1 ML DISP.SYRIN ONE (08:23)
[2018-04-16] MEDS ORDERED: SEVOFLURANE 250 ML BOTTLE ONE (10:03)
[2018-04-16] MEDS ORDERED: PROPOFOL 200 MG/20 ML BOTTLE IV ONE (10:34)
[2018-04-16] MEDS ORDERED: IRR NORMAL SALINE IRRIGATION 1,000 ML BOTTLE IR ONE (10:34)
[2018-04-16] MEDS ORDERED: CEFAZOLIN 1 G VIAL MC ONE (10:34)
[2018-04-16] MEDS ORDERED: LIDOCAINE HCL 2% 20 ML VIAL MC ONE (10:34)
[2018-04-16] MEDS ORDERED: ONDANSETRON 4 MG/2 ML VIAL IV ONE (10:34)
[2018-04-16] MEDS ORDERED: ETOMIDATE 20 MG/10 ML VIAL MC ONE (10:34)
[2018-04-16] MEDS ORDERED: IV LACTATED RINGERS SOLUTION 1,000 ML BAG IV ONE (10:34)
[2018-04-16] MEDS ORDERED: DEXAMETHASONE SOD PHOSPHATE 4 MG INJ IV ONE (10:34)
[2018-04-16] MEDS: CARVEDILOL 12.5 MG TABLET PO SCH ×2 (14:19→17:37)
[2018-04-16] MEDS: ACETAzolamide SODIUM 500 MG VIAL IV SCH (14:21)
[2018-04-16] MEDS: CLOZAPINE 100 MG TABLET PO SCH (14:21)
[2018-04-16] MEDS: FUROSEMIDE 20 MG TABLET PO SCH ×2 (14:22→16:55)
[2018-04-16] MEDS: POTASSIUM CHLORIDE 20 MEQ in IV D5 1/2 NS 1000 ML 1,000 ML IV PRN (16:00)
[2018-04-16] MEDS: RAMIPRIL 5 MG CAPSULE PO SCH (16:00)
[2018-04-16] MEDS: CEFAZOLIN 2 G in IV DEXTROSE 5% 100 ML IV SCH (16:58)
[2018-04-16] MEDS: DOCUSATE SODIUM 100 MG CAPSULE PO SCH (20:00)
[2018-04-17] VITALS: BP 134/75
[2018-04-17] MEDS: CEFAZOLIN 2 G in IV DEXTROSE 5% 100 ML IV SCH (00:31)
[2018-04-17 04:00] VITALS: BP 113/64
[2018-04-17 06:33] LABS: CREATININE 0.9 mg/dL (0.6-1.3); MAGNESIUM 1.7 mg/dL (1.8-2.4); PHOSPHOROUS 2.9 mg/dL (2.5-4.9); POTASSIUM 3.8 mmol/L (3.5-5.1)
[2018-04-17] MEDS: POTASSIUM CHLORIDE 20 MEQ in IV D5 1/2 NS 1000 ML 1,000 ML IV PRN (06:33)
[2018-04-17] MEDS: PANTOPRAZOLE SODIUM 40 MG TABLET.DR PO SCH (06:34)
[2018-04-17] MEDS: CARVEDILOL 12.5 MG TABLET PO SCH ×2 (08:00→17:15)
[2018-04-17 08:05] VITALS: BP 112/71
[2018-04-17] MEDS: FUROSEMIDE 20 MG TABLET PO SCH ×2 (08:16→17:00)
[2018-04-17] MEDS: RAMIPRIL 5 MG CAPSULE PO SCH (08:16)
[2018-04-17] MEDS: ACETAzolamide SODIUM 500 MG VIAL IV SCH (08:16)
[2018-04-17] MEDS: CLOZAPINE 100 MG TABLET PO SCH (08:16)
[2018-04-17] MEDS: MORPHINE SULFATE 4 MG/1 ML DISP.SYRIN IV PRN (08:59)
[2018-04-17 09:36] LABS: BASOPHILS % (AUTO) 0.5 % (0.0-2.0); EOSINOPHILS % (AUTO) 0.1 % (0.0-7.0); HEMATOCRIT 32.1 % (36.7-47.1); LYMPHOCYTES # (AUTO) 0.9 K/uL (20.0-40.0); LYMPHOCYTES % (AUTO) 13.3 % (20.5-51.5); MEAN CORPUSCULAR HEMOGLOBIN 33.6 uug (23.8-33.4); MEAN CORPUSCULAR HGB CONC 34 g/dL (32.5-36.3); MEAN CORPUSCULAR VOLUME 97.9 fL (73.0-96.2); MONOCYTES # (AUTO) 1.1 K/uL (2.0-10.0); MONOCYTES % (AUTO) 15.1 % (0.0-11.0); NEUTROPHILS # (AUTO) 5.1 K/uL (1.8-8.9); PLATELET COUNT (AUTO) 203 K/uL (152-348); RED BLOOD CELL COUNT(AUTO) 3.28 MIL/uL (4.06-5.63); WHITE BLOOD COUNT (AUTO) 7.1 K/uL (3.6-10.2)
[2018-04-17 09:41] LABS: NEUTROPHILS % (MANUAL) 0 % (42-75)
[2018-04-17 10:54] LABS: BASOPHILS % (AUTO) 0.4 % (0.0-2.0); EOSINOPHILS % (AUTO) 0.2 % (0.0-7.0); HEMATOCRIT 35.7 % (36.7-47.1); HEMOGLOBIN 11.8 g/dL (12.5-16.3); LYMPHOCYTES # (AUTO) 0.9 K/uL (20.0-40.0); MEAN CORPUSCULAR HEMOGLOBIN 33.1 uug (23.8-33.4); MEAN CORPUSCULAR HGB CONC 33 g/dL (32.5-36.3); MEAN CORPUSCULAR VOLUME 100.6 fL (73.0-96.2); MONOCYTES # (AUTO) 0.9 K/uL (2.0-10.0); MONOCYTES % (AUTO) 13.1 % (0.0-11.0); NEUTROPHILS # (AUTO) 5.2 K/uL (1.8-8.9); NEUTROPHILS % (AUTO) 73.3 % (38.5-71.5); PLATELET COUNT (AUTO) 208 K/uL (152-348); RED BLOOD CELL COUNT(AUTO) 3.55 MIL/uL (4.06-5.63); WHITE BLOOD COUNT (AUTO) 7.1 K/uL (3.6-10.2)
[2018-04-17 11:05] LABS: POTASSIUM 4.2 mmol/L (3.5-5.1)
[2018-04-17 11:31] VITALS: BP 90/52
[2018-04-17 15:35] VITALS: BP 101/59
[2018-04-17] MEDS: MAGNESIUM SULFATE/D5W 100 ML IV SCH ×2 (15:48→16:44)
[2018-04-17 19:00] VITALS: BP 99/59
[2018-04-17] MEDS: DOCUSATE SODIUM 100 MG CAPSULE PO SCH (21:27)
[2018-04-17] MEDS: MUPIROCIN 2% OINT 22 GM TUBE NS SCH (21:28)
[2018-04-17] MEDS: ACETAMINOPHEN 325 MG TABLET PO PRN (21:29)
[2018-04-18] VITALS (7 sets, daily range): BP systolic 81–121; BP diastolic 41–64
[2018-04-18] MEDS: MORPHINE SULFATE 4 MG/1 ML DISP.SYRIN IV PRN (00:39)
[2018-04-18] MEDS: PANTOPRAZOLE SODIUM 40 MG TABLET.DR PO SCH (05:42)
[2018-04-18 06:15] LABS: BASOPHILS % (AUTO) 0.5 % (0.0-2.0); EOSINOPHILS # (AUTO) 0.1 K/uL (0.0-0.7); HEMATOCRIT 28.3 % (36.7-47.1); LYMPHOCYTES # (AUTO) 1.3 K/uL (20.0-40.0); LYMPHOCYTES % (AUTO) 19.4 % (20.5-51.5); MEAN CORPUSCULAR HEMOGLOBIN 33.9 uug (23.8-33.4); MEAN CORPUSCULAR HGB CONC 35 g/dL (32.5-36.3); MEAN CORPUSCULAR VOLUME 96.5 fL (73.0-96.2); MONOCYTES % (AUTO) 14.6 % (0.0-11.0); NEUTROPHILS # (AUTO) 4.5 K/uL (1.8-8.9); NEUTROPHILS % (AUTO) 64.5 % (38.5-71.5); PLATELET COUNT (AUTO) 197 K/uL (152-348); RED BLOOD CELL COUNT(AUTO) 2.94 MIL/uL (4.06-5.63); WHITE BLOOD COUNT (AUTO) 6.9 K/uL (3.6-10.2)
[2018-04-18 06:25] LABS: CREATININE 0.7 mg/dL (0.6-1.3); MAGNESIUM 1.9 mg/dL (1.8-2.4); PHOSPHOROUS 3.1 mg/dL (2.5-4.9); POTASSIUM 3.3 mmol/L (3.5-5.1)
[2018-04-18] MEDS ORDERED: CARVEDILOL 12.5 MG TABLET PO SCH (08:00)
[2018-04-18] MEDS ORDERED: POTASSIUM CHLORIDE 20 MEQ TAB.PRT.SR PO ONE (08:45)
[2018-04-18] MEDS: CARBIDOPA/LEVODOPA CR 50-200MG TABLET.SA PO SCH ×3 (09:09→17:35)
[2018-04-18] MEDS: CARVEDILOL 6.25 MG TABLET PO SCH ×2 (09:09→17:45)
[2018-04-18] MEDS: CARBIDOPA/LEVODOPA 25-100MG TABLET PO SCH ×2 (09:09→20:09)
[2018-04-18] MEDS: FUROSEMIDE 20 MG TABLET PO SCH (09:09)
[2018-04-18] MEDS: RAMIPRIL 5 MG CAPSULE PO SCH (09:11)
[2018-04-18] MEDS: CLOZAPINE 100 MG TABLET PO SCH (09:11)
[2018-04-18] MEDS: ACETAzolamide SODIUM 500 MG VIAL IV SCH (09:11)
[2018-04-18] MEDS: MUPIROCIN 2% OINT 22 GM TUBE NS SCH ×2 (09:13→20:09)
[2018-04-18] MEDS: DONEPEZIL 10 MG TABLET PO SCH (10:16)
[2018-04-18] MEDS ORDERED: IV NORMAL SALINE 500 ML IV ONE (11:30)
[2018-04-18] MEDS: ACETAMINOPHEN 325 MG TABLET PO PRN ×2 (11:42→20:09)
[2018-04-18] MEDS: DOCUSATE SODIUM 100 MG CAPSULE PO SCH (20:09)
[2018-04-19] MEDS ORDERED: ZOLPIDEM 5 MG TABLET PO PRN (00:15)
[2018-04-19 06:26] VITALS: BP 103/67
[2018-04-19] MEDS: PANTOPRAZOLE SODIUM 40 MG TABLET.DR PO SCH (06:31)
[2018-04-19] MEDS: CARVEDILOL 6.25 MG TABLET PO SCH (08:00)
[2018-04-19] MEDS: CARBIDOPA/LEVODOPA 25-100MG TABLET PO SCH (08:24)
[2018-04-19] MEDS: CLOZAPINE 100 MG TABLET PO SCH (08:25)
[2018-04-19] MEDS: CARBIDOPA/LEVODOPA CR 50-200MG TABLET.SA PO SCH (08:25)
[2018-04-19] MEDS: MUPIROCIN 2% OINT 22 GM TUBE NS SCH (08:26)
[2018-04-19] MEDS: DONEPEZIL 10 MG TABLET PO SCH (08:26)
[2018-04-19] MEDS: FUROSEMIDE 20 MG TABLET PO SCH (08:26)
[2018-04-19 08:28] VITALS: BP 108/54
[2018-04-19 11:19] VITALS: BP 179/79
[2018-04-19] MEDS ORDERED: DOCU100C36 PO (13:52)
[2018-04-19] MEDS ORDERED: CARB-93 PO ×2 (13:52)
[2018-04-19] MEDS ORDERED: PANT40TA2 PO (13:52)
[2018-04-19] MEDS ORDERED: ALBU2.5V38 NEB (13:52)
[2018-04-19] MEDS ORDERED: ACET500V6 IV (13:52)
[2018-04-19] MEDS ORDERED: ALBU1.25 IH (13:52)
[2018-04-19] MEDS ORDERED: DONE10TA11 PO (13:52)
[2018-04-19] MEDS ORDERED: ACET-2154 PO (13:52)
[2018-04-19] MEDS ORDERED: MUPI22OI2 (13:52)
== END 2018-04-19 10:35 | DRG 981 ==
LOC: DS 09:52 → MED 13:42 → TELE 19:00 → MED 04-17 17:29
PROVIDERS: ADMIT Internal Medicine; ATTEND Internal Medicine
PROC: 0PSF04Z Reposition Right Humeral Shaft with Internal Fixation Device, Open Approach (ICD-10-PCS; principal; 2018-04-16)
PROC: 01S40ZZ Reposition Ulnar Nerve, Open Approach (ICD-10-PCS; 2018-04-16)
DX: J96.01 Acute respiratory failure with hypoxia (principal); I50.23 Acute on chronic systolic (congestive) heart failure; G92 Toxic encephalopathy; M80.021A Age-related osteoporosis with current pathological fracture, right humerus, initial encounter for fracture; I42.9 Cardiomyopathy, unspecified; J98.11 Atelectasis; N17.9 Acute kidney failure, unspecified; I11.0 Hypertensive heart disease with heart failure; R29.6 Repeated falls; G24.01 Drug induced subacute dyskinesia; T43.595A Adverse effect of other antipsychotics and neuroleptics, initial encounter; Y92.019 Unspecified place in single-family (private) house as the place of occurrence of the external cause; F32.9 Major depressive disorder, single episode, unspecified; Z87.81 Personal history of (healed) traumatic fracture; I67.2 Cerebral atherosclerosis; I25.10 Atherosclerotic heart disease of native coronary artery without angina pectoris; Z95.810 Presence of automatic (implantable) cardiac defibrillator; Z96.612 Presence of left artificial shoulder joint; Z86.73 Personal history of transient ischemic attack (TIA), and cerebral infarction without residual deficits; R60.0 Localized edema; E87.6 Hypokalemia; Z79.899 Other long term (current) drug therapy; E78.5 Hyperlipidemia, unspecified; I70.8 Atherosclerosis of other arteries; R73.03 Prediabetes; J45.909 Unspecified asthma, uncomplicated; I95.1 Orthostatic hypotension; I70.0 Atherosclerosis of aorta; G20 Parkinson's disease; Z53.09 Procedure and treatment not carried out because of other contraindication
CPT/HCPCS: 36415; 70030-TC; 70450; 71045; 73080; 83735; 84100; 85025; 85730; 93005; 93307; 94640; 97116; 97165; 97530; A4217; A4649; A4663; C1713; G0378; J0690; J1100; J1120; J1170; J2250; J2270; J2405; J3370; J3475; J3480; J3490; J7030; J7040; J7060; J7120

== ENCOUNTER 2018-04-18 13:08 | Inpatient (IN) | payer MEDICARE ==
[~2018-04-18] VITALS: Ht 190.5 cm; Wt 96.2 kg
[2018-04-19] MEDS ORDERED: MAGNESIUM HYDROXIDE 30 ML LIQUID UDC PO PRN (11:45)
[2018-04-19] MEDS ORDERED: Z GUARD REMEDY PASTE 57 GM TUBE TOP PRN (11:45)
[2018-04-19] MEDS ORDERED: ALBU1.25 IH (13:52)
[2018-04-19] MEDS ORDERED: MUPI22OI2 (13:52)
[2018-04-19] MEDS ORDERED: PANT40TA2 PO (13:52)
[2018-04-19] MEDS ORDERED: DONE10TA11 PO (13:52)
[2018-04-19] MEDS ORDERED: ALBU2.5V38 NEB (13:52)
[2018-04-19] MEDS ORDERED: ACET500V6 IV (13:52)
[2018-04-19] MEDS ORDERED: DOCU100C36 PO (13:52)
[2018-04-19] MEDS ORDERED: CARB-93 PO ×2 (13:52)
[2018-04-19] MEDS ORDERED: ACET-2154 PO (13:52)
[2018-04-19] MEDS ORDERED: ALBUTEROL SULFATE 1.25 MG/3 ML NEBU IH PRN (18:15)
[2018-04-19] MEDS ORDERED: ALBUTEROL SULFATE 2.5 MG/3 ML NEBU NEB PRN (18:15)
--- NOTE | 2018-04-19 19:30 | NUR ---
Received SBAR from day shift nurse. Patient alert and oriented x 1-2. 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 1:1 sitter at beside for safety. All side rails up to discourage patient to get out of bed. Re-oriented to rehab unit. Patient confused and unable to fully understand that he is a patient on the unit, and not a doctor. Call light and frequently used items within reach. Will continue to monitor.
[2018-04-19] MEDS: MUPIROCIN 2% OINT 22 GM TUBE NS SCH (20:21)
[2018-04-19] MEDS: DOCUSATE SODIUM 100 MG CAPSULE PO SCH (20:22)
[2018-04-19] MEDS: ATORVASTATIN 20 MG TABLET PO SCH (20:22)
[2018-04-19] MEDS: CARBIDOPA/LEVODOPA 25-100MG TABLET PO SCH (20:22)
[2018-04-19 20:49] VITALS: BP 107/68
[2018-04-20] MEDS: ACETAMINOPHEN 325 MG TABLET PO PRN (00:41)
--- NOTE | 2018-04-20 04:15 | NUR ---
Patient confused and trying to get up. Stating that he needs to, "leave so he can go back home to his girlfriend". Patient will refuses to stay still in bed, and has not slept. Will endorse to morning shift that patient may need something to help him slept for tomorrow night. Will continue to monitor.
[2018-04-20 05:28] VITALS: BP 113/54
[2018-04-20] MEDS: PANTOPRAZOLE SODIUM 40 MG TABLET.DR PO SCH (06:03)
--- NOTE | 2018-04-20 06:42 | NUR ---
All due medications administered as ordered and tolerated well. Pain medication given for C/O elbow pain. 1:1 sitter maintained for safety. Patient still confused and trying to get out bed. 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 Call light and all frequently used items within reach. Will endorse to oncoming shift accordingly.
[2018-04-20 07:30] VITALS: BP 124/60
[2018-04-20] MEDS ORDERED: CARVEDILOL 25 MG TABLET PO SCH (08:00)
[2018-04-20] MEDS ORDERED: CARBIDOPA/LEVODOPA 25-100MG TABLET PO SCH (08:00)
[2018-04-20] MEDS: DONEPEZIL 10 MG TABLET PO SCH (08:26)
[2018-04-20] MEDS: CARBIDOPA/LEVODOPA 25-100MG TABLET PO SCH ×2 (08:27→20:01)
[2018-04-20] MEDS: MUPIROCIN 2% OINT 22 GM TUBE NS SCH ×2 (08:27→20:01)
[2018-04-20] MEDS: CLOZAPINE 100 MG TABLET PO SCH (08:27)
[2018-04-20] MEDS: CARVEDILOL 6.25 MG TABLET PO SCH ×2 (08:27→17:29)
[2018-04-20] MEDS ORDERED: Medication Not On Formulary EA (Rosuvastatin Calcium (Crestor) 10 MG) PO SCH (09:00)
[2018-04-20 16:00] VITALS: BP 120/60
[2018-04-20 19:15] VITALS: BP 106/67
--- NOTE | 2018-04-20 19:30 | NUR ---
Received SBAR from day shift nurse. Patient alert and oriented x 1. 1:1 sitter at beside for safety. All side rails up to discourage patient to get out of bed. Re-oriented to rehab unit. Call light and frequently used items within reach. Will continue to monitor.
[2018-04-20] MEDS: ATORVASTATIN 20 MG TABLET PO SCH (20:00)
[2018-04-20] MEDS: DOCUSATE SODIUM 100 MG CAPSULE PO SCH (20:01)
[2018-04-21 05:13] VITALS: BP 139/62
[2018-04-21] MEDS: PANTOPRAZOLE SODIUM 40 MG TABLET.DR PO SCH (06:06)
--- NOTE | 2018-04-21 06:41 | NUR ---
No significant changes overnight. All due medications administered as ordered and tolerated well. 1:1 sitter maintained for safety. Patient kept clean and dry during shift. Call light and all frequently used items within reach. Will endorse to oncoming shift accordingly.
[2018-04-21 08:30] VITALS: BP 127/72
[2018-04-21] MEDS: CLOZAPINE 100 MG TABLET PO SCH (09:02)
[2018-04-21] MEDS: DONEPEZIL 10 MG TABLET PO SCH (09:03)
[2018-04-21] MEDS: CARBIDOPA/LEVODOPA 25-100MG TABLET PO SCH ×2 (09:03→20:11)
[2018-04-21] MEDS: MUPIROCIN 2% OINT 22 GM TUBE NS SCH ×2 (09:03→20:11)
[2018-04-21] MEDS: CARVEDILOL 6.25 MG TABLET PO SCH ×2 (09:03→18:20)
[2018-04-21 10:06] LABS: BASOPHILS % (AUTO) 0.8 % (0.0-2.0); EOSINOPHILS # (AUTO) 0.1 K/uL (0.0-0.7); HEMOGLOBIN 10.2 g/dL (12.5-16.3); LYMPHOCYTES # (AUTO) 1.1 K/uL (20.0-40.0); LYMPHOCYTES % (AUTO) 20.3 % (20.5-51.5); MEAN CORPUSCULAR HEMOGLOBIN 33.6 uug (23.8-33.4); MEAN CORPUSCULAR HGB CONC 35 g/dL (32.5-36.3); MEAN CORPUSCULAR VOLUME 95.8 fL (73.0-96.2); MONOCYTES # (AUTO) 0.7 K/uL (2.0-10.0); MONOCYTES % (AUTO) 12.9 % (0.0-11.0); NEUTROPHILS # (AUTO) 3.5 K/uL (1.8-8.9); PLATELET COUNT (AUTO) 253 K/uL (152-348); RED BLOOD CELL COUNT(AUTO) 3.03 MIL/uL (4.06-5.63); WHITE BLOOD COUNT (AUTO) 5.5 K/uL (3.6-10.2)
[2018-04-21 16:00] VITALS: BP 107/69
--- NOTE | 2018-04-21 19:25 | NUR ---
Report received from day shift nurse. Patient alert and oriented x 1. Patient confused and trying to get out of bed. All side rails up to for safety. Re-oriented to rehab unit. Call light and frequently used items within reach. Will continue to monitor.
[2018-04-21 19:44] VITALS: BP 93/58
[2018-04-21 20:00] VITALS: BP 88/54
[2018-04-21] MEDS: ACETAMINOPHEN 325 MG TABLET PO PRN (20:11)
[2018-04-21] MEDS: ATORVASTATIN 20 MG TABLET PO SCH (20:11)
[2018-04-21] MEDS: DOCUSATE SODIUM 100 MG CAPSULE PO SCH (20:11)
[2018-04-21] MEDS ORDERED: MELATONIN 3 MG TABLET PO SCH (23:00)
[2018-04-21] MEDS ORDERED: MELATONIN 3 MG TABLET PO ONE (23:15)
--- NOTE | 2018-04-21 23:45 | NUR ---
Patient complained of sleeplessness. scallop raker doctor contacted. 6 mg of melatonin ordered once. Medication given. Sleeplessness corrected. Will continue to monitor.
[2018-04-22] MEDS: ACETAMINOPHEN 325 MG TABLET PO PRN ×3 (01:26→20:47)
[2018-04-22 05:42] VITALS: BP 114/63
[2018-04-22] MEDS: PANTOPRAZOLE SODIUM 40 MG TABLET.DR PO SCH (06:10)
--- NOTE | 2018-04-22 06:41 | NUR ---
All due medications administered as ordered and tolerated well. 1:1 sitter maintained for safety. Patient kept clean and dry during shift. Call light and all frequently used items within reach. Will endorse to oncoming shift accordingly.
[2018-04-22 07:55] VITALS: BP 122/74
[2018-04-22] MEDS: DONEPEZIL 10 MG TABLET PO SCH (09:37)
[2018-04-22] MEDS: CARBIDOPA/LEVODOPA 25-100MG TABLET PO SCH ×2 (09:37→20:46)
[2018-04-22] MEDS: CARVEDILOL 6.25 MG TABLET PO SCH ×2 (09:37→18:00)
[2018-04-22] MEDS: MUPIROCIN 2% OINT 22 GM TUBE NS SCH ×2 (09:37→20:46)
[2018-04-22] MEDS: CLOZAPINE 100 MG TABLET PO SCH (09:38)
--- NOTE | 2018-04-22 12:16 | NUR ---
INTERDISCIPLINARY TEAM CONFERENCE
[2018-04-22 16:12] VITALS: BP 112/63
[2018-04-22] MEDS ORDERED: CITA40TA22 PO (16:34)
[2018-04-22 20:00] VITALS: BP 93/50
[2018-04-22] MEDS: DOCUSATE SODIUM 100 MG CAPSULE PO SCH (20:46)
[2018-04-22] MEDS: ATORVASTATIN 20 MG TABLET PO SCH (20:46)
--- NOTE | 2018-04-22 21:21 | NUR ---
Received pt resting in bed and watching TV. AAO x2. No acute distress noted. C/o pain 5/10 on the right elbow, pt requested for Tylenol. Pain med and all other due meds given as ordered. 1:1 sitter at bedside for safety. Contact isolation implemented. Safety measures maintained. Call light and personal belongings within reach. Will continue to monitor.
--- NOTE | 2018-04-22 23:44 | NUR ---
Pt complaining that Tylenol is not working for his pain and that he couldn't sleep. Notified Dr. Mae about pt's concern. Received new order for [place]one 10-325 q6h prn and Ambien 5mg qhs prn.
[2018-04-23] MEDS: ZOLPIDEM 5 MG TABLET PO PRN ×2 (00:12→21:10)
[2018-04-23 04:00] VITALS: BP 122/70
[2018-04-23] MEDS: PANTOPRAZOLE SODIUM 40 MG TABLET.DR PO SCH (06:16)
[2018-04-23 08:01] VITALS: BP 112/77
[2018-04-23] MEDS: CARVEDILOL 6.25 MG TABLET PO SCH ×2 (08:39→17:17)
[2018-04-23] MEDS: CARBIDOPA/LEVODOPA 25-100MG TABLET PO SCH ×2 (08:39→20:01)
[2018-04-23] MEDS: DONEPEZIL 10 MG TABLET PO SCH (08:39)
[2018-04-23] MEDS: HYDROCODONE/APAP 10-325 MG TABLET PO PRN ×2 (08:39→19:59)
[2018-04-23] MEDS: CLOZAPINE 100 MG TABLET PO SCH (08:40)
--- NOTE | 2018-04-23 09:57 | NUR ---
Received pt in bed. A/Ox2. No acute distress noted. Denies CP or SOB. C/O pain 6-7 on the right elbow. All due medications given as ordered and tolerated well. PRN Thornton given and effective. On 1:1 sitter for safety. Contact isolation for MRSA of nares maintained. Safety measures maintained. Call light and all frequently used items in place. Will continue to monitor accordingly.
[2018-04-23] MEDS: CITALOPRAM 20 MG TABLET PO SCH (11:54)
--- NOTE | 2018-04-23 19:30 | NUR ---
End of shift: All due medications administered as ordered and tolerated well. No new skin condition noted. Kept pt. clean and dry. Discharge home postponed for tomorrow per SINDI and . On 1:1 sitter for safety. Call light and all frequently used items within pt. reach. Will endorse to oncoming shift accordingly.
[2018-04-23 19:41] VITALS: BP 125/68
[2018-04-23] MEDS: DOCUSATE SODIUM 100 MG CAPSULE PO SCH (20:01)
[2018-04-23] MEDS: ATORVASTATIN 20 MG TABLET PO SCH (20:01)
[2018-04-24] MEDS: PANTOPRAZOLE SODIUM 40 MG TABLET.DR PO SCH (06:21)
[2018-04-24 06:43] VITALS: BP 130/71
[2018-04-24] MEDS: ACETAMINOPHEN 325 MG TABLET PO PRN (07:34)
[2018-04-24 08:00] VITALS: BP 110/68
[2018-04-24] MEDS: DONEPEZIL 10 MG TABLET PO SCH (08:07)
[2018-04-24] MEDS: CITALOPRAM 20 MG TABLET PO SCH (08:07)
[2018-04-24] MEDS: CARVEDILOL 6.25 MG TABLET PO SCH (08:07)
[2018-04-24] MEDS: CARBIDOPA/LEVODOPA 25-100MG TABLET PO SCH (08:07)
[2018-04-24] MEDS: CLOZAPINE 100 MG TABLET PO SCH (08:08)
--- NOTE | 2018-04-24 09:20 | NUR ---
Received pt in bed and comfortable. A/Ox1-2 and able to make his needs known. No acute distress noted. Denies CP or SOB. All due medications given as ordered and tolerated well. On 1:1 sitter for safety, pt. impulsive and at times getting out of bed without assistance from staff. Rt. elbow soft cast remain intact. All needs provided and promptly met. Will continue to monitor accordingly.
[2018-04-24 12:00] VITALS: BP 113/71
--- NOTE | 2018-04-24 14:07 | NUR ---
1000 Resident denies any shortness of breath and in no acute distress, respiration regular and unlabored, depth WNL, no flaring, breath sounds clear, no cough or sputum. Heart rhythm normal, neck veins flat. No nausea or vomiting, abdomen soft and flat. Skin warm and dry to touch. ROM WNL. No unusual mood or behavior noted. On 1:1 sitter for safety. 1200 Resident served with lunch at bed and tolerated well. Resident remained stable at this time. No new skin condition noted. Refused to have skin assessment and picture takes, stated "They took pictures yesterday". Resident stated he wants to leave AMA, upon discussing with resident, staff was informed that he wants to leave due to personal reason. Referred to pillowcase cleaner for assistance. Discussed and explained risk of AMA to resident but resident refused and still insisted to AMA. Resident insisted to leave against medical advice even after providing risks that includes continued illness, worsening of symptoms, permanent disability, possibility of re-hospitalization and . Notified Dr. Mae and made aware with order to d/c AMA. AMA form signed by resident all resident inventory provided and assisted by DAIRY ASSOCIATE. Patient teaching rendered, pt. verbalized understanding. No further questions from resident and R/P at this time. Discharge packet given to resident. Instructed resident to f/u with PCP upon discharge. Provided copy of Rt. elbow X-ray. Resident assisted via wheelchair, no complaint of SOB, no change in LOC, no complaint of pain at this time. Left via taxi at 1325
[2018-04-25] MEDS ORDERED: ASPIRIN 81 MG TAB.CHEW PO SCH (09:00)
== END 2018-04-24 13:25 | disposition left against medical advice (07) | DRG 56 ==
PROVIDERS: ADMIT Internal Medicine; ATTEND Physical Medicine & Rehabilitation Pain Medicine
DX: G20 Parkinson's disease (principal); G92 Toxic encephalopathy; I50.22 Chronic systolic (congestive) heart failure; J98.11 Atelectasis; I11.0 Hypertensive heart disease with heart failure; F02.80 Dementia in other diseases classified elsewhere, unspecified severity, without behavioral disturbance, psychotic disturbance, mood disturbance, and anxiety; F32.9 Major depressive disorder, single episode, unspecified; M80.021D Age-related osteoporosis with current pathological fracture, right humerus, subsequent encounter for fracture with routine healing; E87.6 Hypokalemia; E78.5 Hyperlipidemia, unspecified; I25.10 Atherosclerotic heart disease of native coronary artery without angina pectoris; G24.01 Drug induced subacute dyskinesia; T43.595A Adverse effect of other antipsychotics and neuroleptics, initial encounter; Y92.099 Unspecified place in other non-institutional residence as the place of occurrence of the external cause; R29.6 Repeated falls; Z96.619 Presence of unspecified artificial shoulder joint; Z86.73 Personal history of transient ischemic attack (TIA), and cerebral infarction without residual deficits; Z95.810 Presence of automatic (implantable) cardiac defibrillator; Z74.09 Other reduced mobility; Z86.69 Personal history of other diseases of the nervous system and sense organs; R26.81 Unsteadiness on feet
CPT/HCPCS: 36415; 70030-TC; 73080; 85025; 92523; 93005; 97110; 97112; 97116; 97165; 97530; 97535

== ENCOUNTER 2018-06-25 11:11 | Outpatient (CLI) | payer MEDICARE ==
[~2018-06-25 11:11] MED LIST changes: +ACET-2154 PO; +ACET500V6 IV; +ALBU1.25 IH; +ALBU2.5V38 NEB; +CARB-93 PO; +CITA40TA22 PO; +DOCU100C36 PO; +DONE10TA11 PO; -LURA80TA PO; +MUPI22OI2; +PANT40TA2 PO
[2018-06-25 11:48] LABS: *BILIRUBIN,URIN NEGATIVE (NEGATIVE); *BLOOD, URINE TRACE LYSED (NEGATIVE); *CLARITY,URINE CLEAR (CLEAR); *COLOR,URINE DARK YELLOW (YELLOW); *KETONES,URINE 1+ (NEGATIVE); *UROBILINOGEN,URINE 0.2 E.U./dl (NORMAL); LEUKOCYTE ESTERASE ,URINE NEGATIVE (NEGATIVE); NITRITE, URINE NEGATIVE (NEGATIVE); UGLUCOSE NEGATIVE (NEGATIVE)
[2018-06-25 11:50] LABS: BASOPHILS # (AUTO) 0.1 K/uL (0.0-8.0); BASOPHILS % (AUTO) 1.4 % (0.0-2.0); EOSINOPHILS # (AUTO) 0.2 K/uL (0.0-0.7); EOSINOPHILS % (AUTO) 2.4 % (0.0-7.0); HEMATOCRIT 41.9 % (36.7-47.1); HEMOGLOBIN 13.8 g/dL (12.5-16.3); LYMPHOCYTES # (AUTO) 1.5 K/uL (20.0-40.0); LYMPHOCYTES % (AUTO) 23.4 % (20.5-51.5); MEAN CORPUSCULAR HEMOGLOBIN 31.8 uug (23.8-33.4); MEAN CORPUSCULAR HGB CONC 33 g/dL (32.5-36.3); MEAN CORPUSCULAR VOLUME 96.8 fL (73.0-96.2); MONOCYTES # (AUTO) 0.5 K/uL (2.0-10.0); MONOCYTES % (AUTO) 7.4 % (0.0-11.0); NEUTROPHILS # (AUTO) 4.2 K/uL (1.8-8.9); NEUTROPHILS % (AUTO) 65.4 % (38.5-71.5); PLATELET COUNT (AUTO) 226 K/uL (152-348); RED BLOOD CELL COUNT(AUTO) 4.33 MIL/uL (4.06-5.63); WHITE BLOOD COUNT (AUTO) 6.4 K/uL (3.6-10.2)
[2018-06-25 11:55] LABS: MUCUS,URINE MODERATE /LPF (0-FEW)
[2018-06-25 11:56] LABS: BACTERIA,URINE NONE SEEN /HPF (NONE SEEN); SQUAMOUS EPITHELIAL CELL,UR NONE SEEN /HPF (NONE SEEN); WBC,URINE 0-3 /HPF (0-3)
[2018-06-25 12:04] LABS: BILIRUBIN,TOTAL 0.3 mg/dL (0.2-1.0); CREATININE 0.7 mg/dL (0.6-1.3); POTASSIUM 3.8 mmol/L (3.5-5.1); TOTAL PROTEIN, SERUM 6.7 g/dL (6.4-8.2)
[2018-06-25 12:19] LABS: URIC ACID 3.8 mg/dL (3.5-7.2)
[2018-06-25 12:42] LABS: THYROID STIMULATING HORMONE 3.686 mIU/mL (0.358-3.740)
[2018-06-26 05:07] LABS: TRIIODOTHYRONINE, FREE 2.5 pg/mL (2.0-4.4)
[2018-06-26 06:05] LABS: *TESTOSTERONE, SERUM 283 ng/dL (264-916)
== END 2018-06-25 23:59 | disposition home or self-care (01) ==
LOC: LAB 11:11
PROVIDERS: ATTEND Internal Medicine Pulmonary Disease
DX: Z13.1 Encounter for screening for diabetes mellitus (principal); G93.3 Postviral and related fatigue syndromes; E78.49 Other hyperlipidemia; I11.0 Hypertensive heart disease with heart failure; I50.42 Chronic combined systolic (congestive) and diastolic (congestive) heart failure
CPT/HCPCS: 36415; 80164; 84403; 84443; 84481; 84550; 85025; 85610; 85730

== ENCOUNTER 2018-07-01 09:59 | Inpatient (IN) | payer MEDICARE ==
[~2018-07-01] VITALS: Ht 190.5 cm; Wt 96.2 kg
[~2018-07-01 09:59] MED LIST changes: +CEFAZOLIN 1 G VIAL MC ONE; +EPHEDRINE SULFATE 50 MG/ML AMPUL MC ONE; +GLYCOPYRROLATE 0.2 MG/ML VIAL MC ONE; +IV LACTATED RINGERS SOLUTION 1,000 ML BAG IV ONE; +NEOSTIGMINE METHYLSULFATE 10 MG/10 ML VIAL IV ONE; +ONDANSETRON 4 MG/2 ML VIAL IV ONE; +PHENYLEPHRINE 10 MG/1 ML VIAL MC ONE; +PROPOFOL 200 MG/20 ML BOTTLE IV ONE; +SEVOFLURANE 250 ML BOTTLE IH ONE
[2018-07-01] MEDS ORDERED: POLYMYXIN B SULFATE 500,000 UNITS, BACITRACIN 50,000 UNITS, NORMAL SALINE 20 ML MC ONE ×3 (11:15)
[2018-07-01] MEDS ORDERED: FENTANYL CITRATE 100 MCG/2 ML AMPUL ONE ×2 (12:00→15:09)
[2018-07-01] MEDS ORDERED: MIDAZOLAM HCL 2 MG/2 ML VIAL ONE (12:01)
[2018-07-01] MEDS ORDERED: ROCURONIUM BROMIDE 50 MG/5 ML VIAL ONE (12:01)
[2018-07-01] MEDS ORDERED: ZOLPIDEM 5 MG TABLET PO PRN (15:15)
[2018-07-01 15:20] LABS: HEMATOCRIT 34.2 % (36.7-47.1); HEMOGLOBIN 11.3 g/dL (12.5-16.3)
[2018-07-01 16:15] VITALS: BP 122/77
--- NOTE | 2018-07-01 16:30 | NUR ---
RECEIVED FROM RECOVERY ROOM AWAKE ALERT AND ORIENTED, STATES HES HUNGRY, DENIES OF PAIN AT THIS TIME, VS TAKEN, RIGHT ARM SPLINT ON, ELEVATED ON PILLOW,RIGHT HIP DSG DRY AND INTACT, ICE PACK ON, ABDUCTION PILLOW IN PLACE, PEDAL PULSES PRESENT, TOES WARM TO TOUCH AND ABLE TO WIGGLE THEM, SUAREZ CATH IN PLACE WITH LIGHT YELLOW URINE IN THE TUBING, CALL LIGHT WITHIN REACH
[2018-07-01 16:45] VITALS: BP 125/76
--- NOTE | 2018-07-01 17:00 | NUR ---
GAVE JELLO AND ORANGE JUICE, TOLERATED WELL, DENIES OF NAUSEA, REQUESTING FOR SOLID FOOD FOR DINNER
[2018-07-01] MEDS: POTASSIUM CHLORIDE 20 MEQ in IV D5 1/2 NS 1000 ML 1,000 ML IV PRN (17:45)
[2018-07-01 17:53] VITALS: BP 124/78
[2018-07-01 18:14] VITALS: BP 122/76
--- NOTE | 2018-07-01 18:16 | NUR ---
RECIEVED REPORT FROM MEERA PATIENT IS RESTING IN BED , COMPLAINED OF PAIN, WILL GIVE MED ACCORDINGLY VS STABLE
[2018-07-01] MEDS: HYDROCODONE/APAP 10-325 MG TABLET PO PRN (18:35)
--- NOTE | 2018-07-01 19:23 | NUR ---
AO4, NO DISTRESS, PATIENT IS STABLE, PAIN CONTROLLED WITH NORCO SHIFT REPORT
--- NOTE | 2018-07-01 19:45 | NUR ---
RECEIVED PATIENT AWAKE AND ALERT IN BED. NO SIGNS OF ACUTE DISTRESS NOTED. NO COMPLAINTS OF SOB. PATIENT ON 3L NC SATURATING AT 97%. PATIENT STILL COMPLAINING OF PAIN 8/10 ON THE RIGHT HIP. ABDUCTOR PILLOW IS INTACT. IVF RUNNING ON THE LEFT FOREARM. SUAREZ CATH INTACT AND DRAINING CLEAR YELLOW URINE. SAFETY MEASURES INITIATED. BED IS LOW AND LOCKED, CALL LIGHT IS WITHIN REACH. WILL CONTINUE TO MONITOR.
[2018-07-01] MEDS ORDERED: SIMV40TA2 PO (19:46)
[2018-07-01] MEDS ORDERED: DIVA500T4 PO (19:50)
[2018-07-01] MEDS ORDERED: SACU1TAB4 PO (19:57)
[2018-07-01] MEDS ORDERED: CLOZ25TA PO (19:57)
[2018-07-01] MEDS ORDERED: CELE200C PO (19:58)
[2018-07-01] MEDS ORDERED: CARBIDOPA/LEVODOPA 25-100MG TABLET PO SCH (20:15)
[2018-07-01 20:35] VITALS: BP 90/46
[2018-07-01] MEDS: SIMVASTATIN 40 MG TABLET PO SCH (21:17)
[2018-07-01] MEDS: CARBIDOPA/LEVODOPA 25-100MG TABLET PO SCH (21:17)
[2018-07-01] MEDS: CEFAZOLIN 1 G in PREMIXED 1 EACH IV SCH (21:17)
[2018-07-01] MEDS: MORPHINE SULFATE 4 MG/1 ML DISP.SYRIN IV PRN (21:30)
--- NOTE | 2018-07-01 21:40 | NUR ---
PATIENT STILL COMPLAINING OF RIGHT HIP PAIN, REQUESTING MORPHINE. BLOOD PRESSURE IN BEGINNING OF SHIFT WAS 90/46, RECHECKED BP AND WAS 108/60. LET PATIENT KNOW IT WAS STILL A LITTLE LOW. ASKED IF PATIENT WAS FEELING ANY LIGHT HEADEDNESS OR BLURRY VISION AND HE DENIED. ADMINISTERED PRN MORPHINE MEDICATION. WILL CONTINUE TO MONITOR.
[2018-07-02] MEDS: CEFAZOLIN 1 G in PREMIXED 1 EACH IV SCH (04:39)
[2018-07-02 05:32] VITALS: BP 98/44
[2018-07-02 06:29] LABS: HEMOGLOBIN 9.1 g/dL (12.5-16.3)
[2018-07-02 06:41] LABS: CREATININE 0.7 mg/dL (0.6-1.3); POTASSIUM 4.5 mmol/L (3.5-5.1)
[2018-07-02] MEDS ORDERED: CARBIDOPA/LEVODOPA 25-100MG TABLET PO SCH ×2 (08:00)
[2018-07-02] MEDS: CARVEDILOL 25 MG TABLET PO SCH ×2 (08:00→17:02)
[2018-07-02] MEDS: CARBIDOPA/LEVODOPA 25-100MG TABLET PO SCH (08:11)
[2018-07-02] MEDS: CELECOXIB 200 MG CAPSULE PO SCH (08:11)
[2018-07-02] MEDS: DONEPEZIL 10 MG TABLET PO SCH (08:12)
[2018-07-02] MEDS: MORPHINE SULFATE 4 MG/1 ML DISP.SYRIN IV PRN (08:15)
[2018-07-02] MEDS ORDERED: DIVALPROEX ER 500 MG TAB.SR.24H PO SCH ×2 (09:00→13:00)
[2018-07-02] MEDS ORDERED: MUPIROCIN 2% OINT 22 GM TUBE NS SCH (09:00)
[2018-07-02 10:55] LABS: HEMATOCRIT 27.3 % (36.7-47.1); HEMOGLOBIN 9.2 g/dL (12.5-16.3)
[2018-07-02] MEDS: POTASSIUM CHLORIDE 20 MEQ in IV D5 1/2 NS 1000 ML 1,000 ML IV PRN (11:13)
[2018-07-02 11:43] LABS: BASOPHILS % (AUTO) 0.6 % (0.0-2.0); EOSINOPHILS # (AUTO) 0.1 K/uL (0.0-0.7); EOSINOPHILS % (AUTO) 1.3 % (0.0-7.0); HEMATOCRIT 27.6 % (36.7-47.1); HEMOGLOBIN 9.1 g/dL (12.5-16.3); LYMPHOCYTES # (AUTO) 1.3 K/uL (20.0-40.0); MEAN CORPUSCULAR HEMOGLOBIN 31.9 uug (23.8-33.4); MEAN CORPUSCULAR HGB CONC 33 g/dL (32.5-36.3); MEAN CORPUSCULAR VOLUME 96.9 fL (73.0-96.2); MONOCYTES # (AUTO) 0.9 K/uL (2.0-10.0); MONOCYTES % (AUTO) 18.6 % (0.0-11.0); NEUTROPHILS # (AUTO) 2.5 K/uL (1.8-8.9); NEUTROPHILS % (AUTO) 52.5 % (38.5-71.5); PLATELET COUNT (AUTO) 146 K/uL (152-348); RED BLOOD CELL COUNT(AUTO) 2.85 MIL/uL (4.06-5.63); WHITE BLOOD COUNT (AUTO) 4.8 K/uL (3.6-10.2)
[2018-07-02] MEDS ORDERED: CARB-96 PO (11:55)
[2018-07-02 12:00] VITALS: BP 101/59
[2018-07-02] MEDS ORDERED: K-DUR PO (12:07)
[2018-07-02 12:16] LABS: EOSINOPHILS % (MANUAL) 1 % (0-8); LYMPHOCYTES % (MANUAL) 29 % (20-40); MONOCYTES % (MANUAL) 16 % (2-10); NEUTROPHILS % (MANUAL) 54 % (42-75)
[2018-07-02] MEDS: CITALOPRAM 20 MG TABLET PO SCH (12:37)
[2018-07-02] MEDS: ENOXAPARIN SODIUM 30 MG/0.3 ML DISP.SYRIN SUBCUT SCH ×2 (12:40→20:52)
[2018-07-02] MEDS: CARBIDOPA/LEVODOPA CR 50-200MG TABLET.SA PO SCH ×2 (12:47→17:02)
[2018-07-02 16:36] VITALS: BP 106/57
[2018-07-02] MEDS: HYDROCODONE/APAP 10-325 MG TABLET PO PRN (17:02)
--- NOTE | 2018-07-02 19:40 | NUR ---
Received patient awake and alert in bed. No acute distress noted. No complaints of SOB. Complains of some pain, morning nurse administered Nutrioso 2 hours ago, patient says it is helping. Right hip pain is a 4/10. IVF running on the left hand. Solano catheter is intact and draining clear, yellow urine. Abductor pillow is in place. Safety measures initiated. Bed is low and locked, call light is within reach. Will continue to monitor.
[2018-07-02 20:00] VITALS: BP 107/53
[2018-07-02] MEDS: SIMVASTATIN 40 MG TABLET PO SCH (20:49)
[2018-07-02] MEDS ORDERED: CLOZAPINE 25 MG TABLET PO SCH ×2 (21:00)
[2018-07-02] MEDS ORDERED: CLOZAPINE 100 MG TABLET PO SCH (21:00)
[2018-07-03] MEDS: POTASSIUM CHLORIDE 20 MEQ in IV D5 1/2 NS 1000 ML 1,000 ML IV PRN (00:41)
[2018-07-03 05:01] VITALS: BP 108/59
--- NOTE | 2018-07-03 05:55 | NUR ---
Patient slept well throughout the night. No signs of acute distress noted. No complaints of SOB. Complains of mild pain, offered PRN pain medication, but patient said he was okay. IV is now heplock. Order was for D5 1/2 20 MEQ potassium chloride until patient is eating. Patient said he was eating well during the day. Safety measures given. Will endorse plan of care to next shift.
--- NOTE | 2018-07-03 07:25 | NUR ---
RECEIVED PATIENT IN BED, AWAKE, AOX3 WITH SOME CONFUSION AT TIMES. DENIES CHEST PAIN OR SOB. COMPLAINS OF PAIN TO RIGHT HIP. PAIN MEDICATIONS WILL BE GIVEN ORDERED. LEFT HAND IV INTACT AND FLUSHING WELL. SUAREZ CATH INTACT AND DRAINING CLEAR/ YELLOW URINE. ABDUCTION PILLOW IN PLACE. SAFETY AND FALL PREVENTION MEASURES IN PLACE. BED IN LOW POSITION. CALL LIGHT IN REACH. SZ PRECAUTIONS INITIATED. WILL CONTINUE TO MONITOR THROUGHOUT THE SHIFT.
[2018-07-03] MEDS: CARVEDILOL 25 MG TABLET PO SCH ×2 (08:00→17:15)
[2018-07-03] MEDS: HYDROCODONE/APAP 10-325 MG TABLET PO PRN (08:21)
[2018-07-03] MEDS: DONEPEZIL 10 MG TABLET PO SCH (08:23)
[2018-07-03] MEDS: CITALOPRAM 20 MG TABLET PO SCH (08:23)
[2018-07-03] MEDS: DIVALPROEX ER 500 MG TAB.SR.24H PO SCH ×3 (08:23→17:14)
[2018-07-03] MEDS: CELECOXIB 200 MG CAPSULE PO SCH (08:23)
[2018-07-03] MEDS: CARBIDOPA/LEVODOPA CR 50-200MG TABLET.SA PO SCH ×3 (08:23→17:14)
[2018-07-03] MEDS: ENOXAPARIN SODIUM 30 MG/0.3 ML DISP.SYRIN SUBCUT SCH (08:24)
[2018-07-03] MEDS ORDERED: ALBUTEROL SULFATE 2.5 MG/3 ML NEBU NEB PRN (09:15)
[2018-07-03 12:13] VITALS: BP 88/47
[2018-07-03 15:56] VITALS: BP 95/50
[2018-07-03 17:15] VITALS: BP 108/58
--- NOTE | 2018-07-03 19:10 | NUR ---
PATIENT DISCHARGED TO ARU VIA BED WITH HOME SERVICE ADVISOR. REPORT GIVEN TO RN IN ARU. PATIENT VITAL SIGNS STABLE UPON DISCHARGE. DISCHARGE INSTRUCTIONS SENT WITH PATIENTS. MEDICATIONS RECONCILIATION SENT WITH PATIENT. BELONGINGS LIST WENT OVER WITH PATIENT AND SIGNED. BELONGINGS WENT WITH PATIENT.
[2018-07-03] MEDS ORDERED: ALBU2.5V13 IH (22:23)
[2018-07-03] MEDS ORDERED: HYDR-3980 PO (22:23)
[2018-07-03] MEDS ORDERED: ZOLP10TA2 PO (22:23)
[2018-07-04] MEDS ORDERED: DIVALPROEX ER 250 MG TAB.SR.24H PO SCH (09:00)
== END 2018-07-03 17:00 | DRG 470 ==
LOC: DS 09:59 → MED 15:01 → MEDSURG3 15:02
PROVIDERS: ADMIT Orthopaedic Surgery Sports Medicine
PROC: 0SR90JA Replacement of Right Hip Joint with Synthetic Substitute, Uncemented, Open Approach (ICD-10-PCS; principal; 2018-07-01)
DX: M16.11 Unilateral primary osteoarthritis, right hip (principal); I50.42 Chronic combined systolic (congestive) and diastolic (congestive) heart failure; I42.9 Cardiomyopathy, unspecified; G40.909 Epilepsy, unspecified, not intractable, without status epilepticus; G20 Parkinson's disease; E78.5 Hyperlipidemia, unspecified; I11.0 Hypertensive heart disease with heart failure; Z95.810 Presence of automatic (implantable) cardiac defibrillator; R73.03 Prediabetes; I25.10 Atherosclerotic heart disease of native coronary artery without angina pectoris; D64.9 Anemia, unspecified; J45.909 Unspecified asthma, uncomplicated
CPT/HCPCS: 36415; 70030-TC; 73501; 73503; 85018; 85025; 86850; 86900; 86901; 97110; 97116; 97530; A4663; J0690; J1650; J2250; J2270; J2370; J2405; J2710; J3010; J3480; J3490; J7050; J7120

== ENCOUNTER 2018-07-03 20:47 | Inpatient (IN) | payer MEDICARE ==
[~2018-07-03] VITALS: Ht 190.5 cm; Wt 96.2 kg
[2018-07-03 20:39] VITALS: BP 105/51
[~2018-07-03 20:47] MED LIST changes: -ACET-2154 PO; -ACET500V6 IV; -ALBU1.25 IH; -ALBU2.5V38 NEB; -CARB-93 PO; +CARB-96 PO; -CEFAZOLIN 1 G VIAL MC ONE; +CELE200C PO; -CLOZ100T PO; +CLOZ25TA PO; +DIVA500T4 PO; -DOCU100C36 PO; -EPHEDRINE SULFATE 50 MG/ML AMPUL MC ONE; -FURO-152 PO; -GLYCOPYRROLATE 0.2 MG/ML VIAL MC ONE; -IV LACTATED RINGERS SOLUTION 1,000 ML BAG IV ONE; +K-DUR PO; -NEOSTIGMINE METHYLSULFATE 10 MG/10 ML VIAL IV ONE; -ONDANSETRON 4 MG/2 ML VIAL IV ONE; -PANT40TA2 PO; -PHENYLEPHRINE 10 MG/1 ML VIAL MC ONE; -POTA8TAB3 PO; -PROPOFOL 200 MG/20 ML BOTTLE IV ONE; -RAMI10CA69 PO; -ROSU10TA2 PO; +SACU1TAB4 PO; -SEVOFLURANE 250 ML BOTTLE IH ONE; +SIMV40TA2 PO
--- NOTE | 2018-07-03 21:45 | NUR ---
Admitted a 67 years old male patient at 2030 from [facility] under the care of Dr. Mae and [facility] group. Admitting diagnosis: Right THR secondary to arthritis. His past medical history: left chest pacemaker, parkinsonism, HTN, CHF, Hyperlipidemia, depression. Patient is on cardiac diet with NKA. Patient is full code. Patient is A/Ox4 verbally responsive and able to make her needs known. No SOB or acute distress, on RA and tolerating well. Denies pain during assessment. Noted with LFA 20G, patent and intact, No sign of inflammation. All patient. needs attended and met promptly. Lungs sounds clear to auscultation. MRSA swab completed per unit protocol. Solano catheter in placed, draining yellow urine. Patient has abductor pillow. Dr. Mae made aware of patient admission. will call [facility] on-call for med recon. Kept pt. clean and dry. Safety measures maintained. Call light and all frequently used items within reach. Emphasize use of call light system, pt. verbalized clear understanding. Will continue to monitor.
--- NOTE | 2018-07-03 21:50 | NUR ---
During inventory, Patient refused to put his wallet, credit cards (one master card, one visa), some dobbins ($1 x 12, $5 x1) into the safe. He preferred to have them with himself.
[2018-07-03] MEDS ORDERED: HYDR-3980 PO (22:23)
[2018-07-03] MEDS ORDERED: ALBU2.5V13 IH (22:23)
[2018-07-03] MEDS ORDERED: ZOLP10TA2 PO (22:23)
[2018-07-04] VITALS (15 sets, daily range): BP systolic 93–116; BP diastolic 38–61
--- NOTE | 2018-07-04 | NUR ---
Patient developed high temperature 100.5 and high HR: 110. Made his room cooler, checked the T and HR again, T: 98.7, but HR no change. Dr. Wilkinson was notified, no new order only monitoring. Will continue to monitor.
--- NOTE | 2018-07-04 00:10 | NUR ---
patient complained of cough, ask for cough medicine and Ambien. Contacted Dr. Wilkinson ([facility] on-call), Dr. Wilkinson ordered Benzonatate 100 mg cap and Ambien 10 mg tab. Contacted carding supervisor for Benzonatate. medication given and well tolerated. Continue to monitor.
[2018-07-04] MEDS ORDERED: ALBUTEROL SULFATE 2.5 MG/ 0.5 ML NEBU IH PRN (00:30)
[2018-07-04] MEDS ORDERED: HYDROCODONE/APAP 10-325 MG TABLET PO PRN (00:30)
[2018-07-04] MEDS ORDERED: BENZONATATE 100 MG CAPSULE PO SCH (00:30)
[2018-07-04] MEDS ORDERED: BENZONATATE 100 MG CAPSULE ONE (01:17)
[2018-07-04] MEDS: ZOLPIDEM 5 MG TABLET PO PRN ×2 (01:18→21:03)
[2018-07-04 07:56] LABS: EOSINOPHILS # (AUTO) 0.1 K/uL (0.0-0.7); LYMPHOCYTES # (AUTO) 1.6 K/uL (20.0-40.0); MONOCYTES # (AUTO) 1.1 K/uL (2.0-10.0); NEUTROPHILS # (AUTO) 3.8 K/uL (1.8-8.9)
[2018-07-04 08:00] LABS: BASOPHILS # (AUTO) 0.1 K/uL (0.0-8.0); BASOPHILS % (AUTO) 0.8 % (0.0-2.0); EOSINOPHILS % (AUTO) 1.9 % (0.0-7.0); LYMPHOCYTES % (AUTO) 23.9 % (20.5-51.5); MEAN CORPUSCULAR HEMOGLOBIN 32.7 uug (23.8-33.4); MEAN CORPUSCULAR HGB CONC 34 g/dL (32.5-36.3); MONOCYTES % (AUTO) 16.2 % (0.0-11.0); NEUTROPHILS % (AUTO) 57.2 % (38.5-71.5); PLATELET COUNT (AUTO) 115 K/uL (152-348)
[2018-07-04] MEDS: CARVEDILOL 25 MG TABLET PO SCH ×3 (08:00→18:00)
[2018-07-04 08:04] LABS: RED BLOOD CELL COUNT(AUTO) 1.91 MIL/uL (4.06-5.63)
[2018-07-04 08:09] LABS: HEMOGLOBIN 6.3 g/dL (12.5-16.3)
[2018-07-04 08:10] LABS: HEMATOCRIT 18.4 % (36.7-47.1)
[2018-07-04 08:12] LABS: CREATININE 0.8 mg/dL (0.6-1.3); MAGNESIUM 1.9 mg/dL (1.8-2.4); PHOSPHOROUS 3.4 mg/dL (2.5-4.9); POTASSIUM 4.3 mmol/L (3.5-5.1); WHITE BLOOD COUNT (AUTO) 6.7 K/uL (3.6-10.2)
[2018-07-04] MEDS: CITALOPRAM 20 MG TABLET PO SCH (08:28)
[2018-07-04] MEDS: DONEPEZIL 10 MG TABLET PO SCH (08:28)
[2018-07-04] MEDS: BENZONATATE 100 MG CAPSULE PO SCH ×3 (08:29→21:09)
[2018-07-04] MEDS: CARBIDOPA/LEVODOPA CR 50-200MG TABLET.SA PO SCH ×3 (08:29→16:14)
[2018-07-04] MEDS: VALSARTAN 80 MG TABLET PO SCH ×2 (08:29→20:42)
[2018-07-04] MEDS: POTASSIUM CHLORIDE 8 MEQ TAB.PRT.SR PO SCH ×2 (08:31→08:44)
--- NOTE | 2018-07-04 08:45 | NUR ---
Patient had critical hgb 6.3 and hct 18.4 relayed to RG Kirkpatrick ordered repeat CBC. will continue monitor
[2018-07-04] MEDS ORDERED: DIVALPROEX ER 500 MG TAB.SR.24H PO SCH (09:00)
[2018-07-04] MEDS ORDERED: MUPIROCIN 2% OINT 22 GM TUBE NS SCH (09:00)
[2018-07-04 09:37] LABS: BASOPHILS % (AUTO) 0.7 % (0.0-2.0); EOSINOPHILS # (AUTO) 0.1 K/uL (0.0-0.7); EOSINOPHILS % (AUTO) 1.9 % (0.0-7.0); LYMPHOCYTES # (AUTO) 1.4 K/uL (20.0-40.0); LYMPHOCYTES % (AUTO) 19.7 % (20.5-51.5); MEAN CORPUSCULAR HEMOGLOBIN 33.1 uug (23.8-33.4); MEAN CORPUSCULAR HGB CONC 35 g/dL (32.5-36.3); MONOCYTES # (AUTO) 1.1 K/uL (2.0-10.0); MONOCYTES % (AUTO) 14.5 % (0.0-11.0); NEUTROPHILS # (AUTO) 4.6 K/uL (1.8-8.9); NEUTROPHILS % (AUTO) 63.2 % (38.5-71.5); PLATELET COUNT (AUTO) 130 K/uL (152-348); WHITE BLOOD COUNT (AUTO) 7.3 K/uL (3.6-10.2)
[2018-07-04 09:44] LABS: HEMOGLOBIN 6.6 g/dL (12.5-16.3)
[2018-07-04 09:46] LABS: HEMATOCRIT 19.2 % (36.7-47.1)
[2018-07-04 10:00] LABS: LYMPHOCYTES % (MANUAL) 32 % (20-40); MONOCYTES % (MANUAL) 15 % (2-10); NEUTROPHILS % (MANUAL) 53 % (42-75)
--- NOTE | 2018-07-04 10:51 | NUR ---
Repeat CBC relayed to RG Kirkpatrick with order 2 PRBC, type and match and CBC after transfusion. will continue monitor
[2018-07-04] MEDS: DIVALPROEX ER 250 MG TAB.SR.24H PO SCH ×2 (12:33→16:15)
--- NOTE | 2018-07-04 13:30 | NUR ---
INTERDISCIPLINARY TEAM CONFERENCE
--- NOTE | 2018-07-04 18:16 | NUR ---
Patient started transfuse first 1 PRBC aroung 1415, vitals stable. no complaint of pain/discomfort. End at 1645. no SOB, fever, chills, itchiness and pain noted. Started the second PRBC around 1756. no complaint voiced. Continue vital signs and blood reaction monitoring.
--- NOTE | 2018-07-04 19:15 | NUR ---
Awake during initial rounds. Blood transfusion in progress without s/s of adverse reaction noted. Denies any pain/discomforts. IV site (-) for s/s of infiltration. F/C intact and patent with clear gisel urine. Abduction pillow in between legs. Right hip dressing dry and intact. Safety measure and afll precaution maintained. Continue care as planned.
--- NOTE | 2018-07-04 20:20 | NUR ---
Blood transfusion completed without s/s of adverse reaction noted. VS taken and recorded.
[2018-07-04 20:23] LABS: BASOPHILS % (AUTO) 0.8 % (0.0-2.0); EOSINOPHILS # (AUTO) 0.2 K/uL (0.0-0.7); EOSINOPHILS % (AUTO) 2.8 % (0.0-7.0); HEMATOCRIT 21.5 % (36.7-47.1); LYMPHOCYTES # (AUTO) 1.5 K/uL (20.0-40.0); LYMPHOCYTES % (AUTO) 23.3 % (20.5-51.5); MEAN CORPUSCULAR HEMOGLOBIN 31.1 uug (23.8-33.4); MEAN CORPUSCULAR HGB CONC 34 g/dL (32.5-36.3); MEAN CORPUSCULAR VOLUME 92.1 fL (73.0-96.2); MONOCYTES # (AUTO) 0.9 K/uL (2.0-10.0); MONOCYTES % (AUTO) 14.6 % (0.0-11.0); NEUTROPHILS # (AUTO) 3.8 K/uL (1.8-8.9); NEUTROPHILS % (AUTO) 58.5 % (38.5-71.5); PLATELET COUNT (AUTO) 116 K/uL (152-348); WHITE BLOOD COUNT (AUTO) 6.5 K/uL (3.6-10.2)
[2018-07-04 20:38] LABS: RED BLOOD CELL COUNT(AUTO) 2.33 MIL/uL (4.06-5.63)
--- NOTE | 2018-07-04 20:38 | NUR ---
Received critical alb result from lab Hgb= 7.3, left message to 1-4 All answering service. Awaiting Lorraine Kirkpatrick to call back.
[2018-07-04 20:39] LABS: HEMOGLOBIN 7.3 g/dL (12.5-16.3)
[2018-07-04] MEDS: CLOZAPINE 100 MG TABLET PO SCH (20:41)
[2018-07-04] MEDS: SIMVASTATIN 40 MG TABLET PO SCH (20:42)
[2018-07-04] MEDS ORDERED: CLOZAPINE 25 MG TABLET PO SCH (21:00)
[2018-07-04] MEDS ORDERED: MELATONIN 3 MG TABLET PO SCH ×2 (21:00)
[2018-07-04] MEDS: MELATONIN 10MG TABLET PO SCH (21:00)
--- NOTE | 2018-07-04 21:47 | NUR ---
Lorraine Kirkpatrick called back with no new order given.
[2018-07-05] VITALS (7 sets, daily range): BP systolic 87–113; BP diastolic 43–58
[2018-07-05] MEDS: BENZONATATE 100 MG CAPSULE PO SCH ×3 (05:27→21:00)
[2018-07-05 06:15] LABS: BASOPHILS % (AUTO) 0.8 % (0.0-2.0); EOSINOPHILS # (AUTO) 0.3 K/uL (0.0-0.7); EOSINOPHILS % (AUTO) 4.4 % (0.0-7.0); HEMATOCRIT 21.2 % (36.7-47.1); LYMPHOCYTES # (AUTO) 1.3 K/uL (20.0-40.0); LYMPHOCYTES % (AUTO) 21.7 % (20.5-51.5); MEAN CORPUSCULAR HEMOGLOBIN 31.1 uug (23.8-33.4); MEAN CORPUSCULAR HGB CONC 34 g/dL (32.5-36.3); MEAN CORPUSCULAR VOLUME 92.1 fL (73.0-96.2); MONOCYTES # (AUTO) 0.8 K/uL (2.0-10.0); MONOCYTES % (AUTO) 12.8 % (0.0-11.0); NEUTROPHILS # (AUTO) 3.7 K/uL (1.8-8.9); NEUTROPHILS % (AUTO) 60.3 % (38.5-71.5); PLATELET COUNT (AUTO) 118 K/uL (152-348); WHITE BLOOD COUNT (AUTO) 6.1 K/uL (3.6-10.2)
[2018-07-05 06:24] LABS: HEMOGLOBIN 7.2 g/dL (12.5-16.3)
[2018-07-05] MEDS: CARBIDOPA/LEVODOPA CR 50-200MG TABLET.SA PO SCH ×3 (08:41→17:24)
[2018-07-05] MEDS: CITALOPRAM 20 MG TABLET PO SCH (08:42)
[2018-07-05] MEDS: DIVALPROEX ER 250 MG TAB.SR.24H PO SCH ×3 (08:42→17:24)
[2018-07-05] MEDS: CARVEDILOL 25 MG TABLET PO SCH ×2 (08:42→17:26)
[2018-07-05] MEDS: POTASSIUM CHLORIDE 8 MEQ TAB.PRT.SR PO SCH (08:43)
[2018-07-05] MEDS: VALSARTAN 80 MG TABLET PO SCH ×2 (08:43→20:58)
[2018-07-05] MEDS: DONEPEZIL 10 MG TABLET PO SCH (08:52)
--- NOTE | 2018-07-05 10:47 | NUR ---
Critical hgb 7.2 GANG HEAD SAW OPERATOR Casimiro aware and ordered 1 PRBC and continue CBC monitoring. Started blood transfusion at 1024am. VS: BP 91/46 T 98.3 P 76 R17. not in distress. no SOB and reaction noted as of this time. will continue monitor
[2018-07-05] MEDS ORDERED: GLYCERIN ADULT RECTAL SUPP EACH RC PRN ×2 (12:00→15:00)
[2018-07-05] MEDS ORDERED: GLYCERIN ADULT RECTAL SUPP EACH RC ONE ×2 (12:45→13:00)
[2018-07-05 14:39] LABS: BASOPHILS % (AUTO) 0.7 % (0.0-2.0); EOSINOPHILS # (AUTO) 0.3 K/uL (0.0-0.7); EOSINOPHILS % (AUTO) 3.7 % (0.0-7.0); HEMATOCRIT 27.5 % (36.7-47.1); HEMOGLOBIN 9.4 g/dL (12.5-16.3); LYMPHOCYTES # (AUTO) 1.3 K/uL (20.0-40.0); LYMPHOCYTES % (AUTO) 18.9 % (20.5-51.5); MEAN CORPUSCULAR HEMOGLOBIN 31.2 uug (23.8-33.4); MEAN CORPUSCULAR HGB CONC 34 g/dL (32.5-36.3); MEAN CORPUSCULAR VOLUME 91.4 fL (73.0-96.2); MONOCYTES # (AUTO) 0.9 K/uL (2.0-10.0); MONOCYTES % (AUTO) 13.7 % (0.0-11.0); NEUTROPHILS # (AUTO) 4.3 K/uL (1.8-8.9); PLATELET COUNT (AUTO) 172 K/uL (152-348); RED BLOOD CELL COUNT(AUTO) 3.01 MIL/uL (4.06-5.63); WHITE BLOOD COUNT (AUTO) 6.8 K/uL (3.6-10.2)
--- NOTE | 2018-07-05 15:11 | NUR ---
Patient done with blood transfusion around 140pm. post transfusion CBC extracted with hgb 9.4. no delayed reaction noted. seen and examined by RG Kirkpatrikc and MD Kyle inspectors and regulatory officers. no new ordered. no complaint of pain/discomfort. not in distress. will continue monitor
--- NOTE | 2018-07-05 17:04 | NUR ---
Patient change incision dressing as ordered by MD Smith. Cleanse and covered steri strips with surgical dressing. will continue monitor
[2018-07-05 20:15] LABS: BASOPHILS % (AUTO) 0.6 % (0.0-2.0); EOSINOPHILS # (AUTO) 0.3 K/uL (0.0-0.7); EOSINOPHILS % (AUTO) 4.1 % (0.0-7.0); HEMATOCRIT 24.2 % (36.7-47.1); HEMOGLOBIN 8.4 g/dL (12.5-16.3); LYMPHOCYTES # (AUTO) 1.3 K/uL (20.0-40.0); LYMPHOCYTES % (AUTO) 22.1 % (20.5-51.5); MEAN CORPUSCULAR HEMOGLOBIN 31.4 uug (23.8-33.4); MEAN CORPUSCULAR HGB CONC 35 g/dL (32.5-36.3); MEAN CORPUSCULAR VOLUME 90.7 fL (73.0-96.2); MONOCYTES # (AUTO) 0.7 K/uL (2.0-10.0); MONOCYTES % (AUTO) 12.1 % (0.0-11.0); NEUTROPHILS # (AUTO) 3.7 K/uL (1.8-8.9); NEUTROPHILS % (AUTO) 61.1 % (38.5-71.5); PLATELET COUNT (AUTO) 145 K/uL (152-348); RED BLOOD CELL COUNT(AUTO) 2.67 MIL/uL (4.06-5.63); WHITE BLOOD COUNT (AUTO) 6.1 K/uL (3.6-10.2)
[2018-07-05] MEDS: CLOZAPINE 100 MG TABLET PO SCH (20:56)
[2018-07-05] MEDS: SIMVASTATIN 40 MG TABLET PO SCH (20:56)
[2018-07-05] MEDS: ZOLPIDEM 5 MG TABLET PO PRN (21:00)
[2018-07-05] MEDS: MELATONIN 10MG TABLET PO SCH (21:00)
--- NOTE | 2018-07-05 22:47 | NUR ---
Patient C/O Bilateral heel discomfort . Pads applied to heels and repositioned on a pillow for comfort. Will continue to monitor accordingly.
[2018-07-06 04:30] VITALS: BP 107/69
--- NOTE | 2018-07-06 05:00 | NUR ---
Patient observed with swollen right tight. Non pitting. Denies pain on touching. Alert and oriented x4. Will continue to monitor. Will endorsed to the morning shift nurse.
[2018-07-06] MEDS: BENZONATATE 100 MG CAPSULE PO SCH ×3 (06:05→22:13)
[2018-07-06 07:45] VITALS: BP 112/45
[2018-07-06] MEDS: DONEPEZIL 10 MG TABLET PO SCH (08:32)
[2018-07-06] MEDS: DIVALPROEX ER 250 MG TAB.SR.24H PO SCH ×3 (08:32→17:05)
[2018-07-06] MEDS: CARBIDOPA/LEVODOPA CR 50-200MG TABLET.SA PO SCH ×3 (08:33→17:04)
[2018-07-06] MEDS: CITALOPRAM 20 MG TABLET PO SCH (08:34)
[2018-07-06] MEDS: POTASSIUM CHLORIDE 8 MEQ TAB.PRT.SR PO SCH (08:34)
[2018-07-06] MEDS: VALSARTAN 80 MG TABLET PO SCH ×2 (08:35→20:23)
[2018-07-06] MEDS: CARVEDILOL 25 MG TABLET PO SCH ×2 (08:36→17:11)
[2018-07-06 12:39] LABS: BASOPHILS % (AUTO) 0.6 % (0.0-2.0); EOSINOPHILS # (AUTO) 0.2 K/uL (0.0-0.7); EOSINOPHILS % (AUTO) 3.8 % (0.0-7.0); HEMATOCRIT 26.1 % (36.7-47.1); HEMOGLOBIN 8.7 g/dL (12.5-16.3); LYMPHOCYTES # (AUTO) 0.9 K/uL (20.0-40.0); LYMPHOCYTES % (AUTO) 14.3 % (20.5-51.5); MEAN CORPUSCULAR HEMOGLOBIN 30.8 uug (23.8-33.4); MEAN CORPUSCULAR HGB CONC 34 g/dL (32.5-36.3); MEAN CORPUSCULAR VOLUME 92.1 fL (73.0-96.2); MONOCYTES % (AUTO) 15.4 % (0.0-11.0); NEUTROPHILS # (AUTO) 4.3 K/uL (1.8-8.9); NEUTROPHILS % (AUTO) 65.9 % (38.5-71.5); PLATELET COUNT (AUTO) 178 K/uL (152-348); RED BLOOD CELL COUNT(AUTO) 2.84 MIL/uL (4.06-5.63); WHITE BLOOD COUNT (AUTO) 6.6 K/uL (3.6-10.2)
[2018-07-06 12:42] LABS: LYMPHOCYTES % (MANUAL) 14 % (20-40); MONOCYTES % (MANUAL) 15 % (2-10)
[2018-07-06 12:43] LABS: EOSINOPHILS % (MANUAL) 4 % (0-8); NEUTROPHILS % (MANUAL) 67 % (42-75)
--- NOTE | 2018-07-06 13:00 | NUR ---
SBAR report received, Pt up AAOx3, able to make needs known. VSS. Pt assisted to sit up for lunch. Pt compliant with all routine medication administration. Pt denies any other discomfort at this time. No acute distress evident. Pt cooperative with therapies as offered. Bed in locked and lowest position with side rails up x2, bed alarm on. Call light and personal belongings placed within reach. All comfort and safety measures in place. Will continue to monitor for safety.
--- NOTE | 2018-07-06 13:30 | NUR ---
INDIVIDUALIZED OVERALL PLAN OF CARE
[2018-07-06] MEDS: GLYCERIN ADULT RECTAL SUPP EACH RC PRN (14:51)
[2018-07-06 16:45] VITALS: BP 99/54
--- NOTE | 2018-07-06 19:02 | NUR ---
Pt assisted to toilet for small BMx1, following PRN suppository administration to relieve constipation. Pt refused Coreg administration for decreased BP of 99/54. Pt teaching provided. All other safety and comfort needs promptly attended to this shift. Will endorse to night supervisor nurse.
--- NOTE | 2018-07-06 19:15 | NUR ---
In bed, awake, denies any pain/discomfort, pleasant, cooperative., not in distress. Solano catheter intact and patent draining clear gisel urine output. Safety measure and fall precaution maintained. Continue care as planned.
[2018-07-06] MEDS: SIMVASTATIN 40 MG TABLET PO SCH (20:22)
[2018-07-06] MEDS: CLOZAPINE 100 MG TABLET PO SCH (20:22)
[2018-07-06] MEDS: ZOLPIDEM 5 MG TABLET PO PRN (20:22)
[2018-07-06] MEDS: MELATONIN 10MG TABLET PO SCH (20:28)
[2018-07-06 21:13] VITALS: BP 114/50
[2018-07-06 22:01] VITALS: BP 110/58
[2018-07-07 05:29] VITALS: BP 101/54
[2018-07-07] MEDS: BENZONATATE 100 MG CAPSULE PO SCH ×3 (05:31→22:57)
--- NOTE | 2018-07-07 06:11 | NUR ---
Shift End Report: Low grade fever noted. Light blanket provided and encouraged increase oral fluid intake as tolerated. NO complaint of pain presented. All attended nad met. Continue current rehab plan of care.
[2018-07-07 07:15] LABS: HEMATOCRIT 25.9 % (36.7-47.1); HEMOGLOBIN 8.7 g/dL (12.5-16.3); MEAN CORPUSCULAR HEMOGLOBIN 30.9 uug (23.8-33.4); MEAN CORPUSCULAR HGB CONC 34 g/dL (32.5-36.3); MEAN CORPUSCULAR VOLUME 92.1 fL (73.0-96.2); PLATELET COUNT (AUTO) 206 K/uL (152-348); RED BLOOD CELL COUNT(AUTO) 2.81 MIL/uL (4.06-5.63); WHITE BLOOD COUNT (AUTO) 6.8 K/uL (3.6-10.2)
[2018-07-07 07:16] LABS: BASOPHILS % (AUTO) 0.6 % (0.0-2.0); EOSINOPHILS # (AUTO) 0.2 K/uL (0.0-0.7); EOSINOPHILS % (AUTO) 2.3 % (0.0-7.0); LYMPHOCYTES # (AUTO) 1.4 K/uL (20.0-40.0); MONOCYTES # (AUTO) 1.1 K/uL (2.0-10.0); MONOCYTES % (AUTO) 16.1 % (0.0-11.0); NEUTROPHILS # (AUTO) 4.1 K/uL (1.8-8.9)
[2018-07-07] MEDS: CITALOPRAM 20 MG TABLET PO SCH (08:16)
[2018-07-07] MEDS: DONEPEZIL 10 MG TABLET PO SCH (08:16)
[2018-07-07] MEDS: CARBIDOPA/LEVODOPA CR 50-200MG TABLET.SA PO SCH ×3 (08:17→17:31)
[2018-07-07 08:18] LABS: EOSINOPHILS % (MANUAL) 3 % (0-8); LYMPHOCYTES % (MANUAL) 24 % (20-40); MONOCYTES % (MANUAL) 4 % (2-10); NEUTROPHILS % (MANUAL) 69 % (42-75)
[2018-07-07] MEDS: DIVALPROEX ER 250 MG TAB.SR.24H PO SCH ×3 (08:19→17:31)
[2018-07-07] MEDS: POTASSIUM CHLORIDE 8 MEQ TAB.PRT.SR PO SCH (08:20)
[2018-07-07] MEDS: CARVEDILOL 25 MG TABLET PO SCH ×2 (08:25→18:00)
--- NOTE | 2018-07-07 09:15 | NUR ---
Dr. Garner came to see patient. Informed MD regarding temp of 100.6 and regarding patient wanting to continue his home medication MD Carina put in new orders.
[2018-07-07] MEDS: ACETAMINOPHEN 325 MG TABLET PO PRN (09:31)
[2018-07-07] MEDS: ENTRESTO PO SCH ×2 (10:34→20:22)
--- NOTE | 2018-07-07 12:21 | NUR ---
Lorraine Kirkpatrick ROUSTABOUT CREW came to see patient, informed her regarding decreased BP 90/46 and that due Entresto was held. Per ROUSTABOUT CREW, it's OK to hold medication and to use hold parameter for all BP medications if SBP is less than 110 mmHg and ROUSTABOUT CREW put in new orders.
--- NOTE | 2018-07-07 14:33 | NUR ---
Peanut Farmer assessment completed today.
[2018-07-07 17:04] LABS: *BILIRUBIN,URIN 1+ (NEGATIVE); *BLOOD, URINE 2+ (NEGATIVE); *CLARITY,URINE CLEAR (CLEAR); *COLOR,URINE AMBER (YELLOW); *KETONES,URINE 1+ (NEGATIVE); LEUKOCYTE ESTERASE ,URINE NEGATIVE (NEGATIVE); NITRITE, URINE NEGATIVE (NEGATIVE); UGLUCOSE NEGATIVE (NEGATIVE)
[2018-07-07 17:23] LABS: BACTERIA,URINE FEW /HPF (NONE SEEN); RBC,URINE 80-100 /HPF (0-3); SQUAMOUS EPITHELIAL CELL,UR NONE SEEN /HPF (NONE SEEN); WBC,URINE NONE SEEN /HPF (0-3)
[2018-07-07 17:24] LABS: MUCUS,URINE MANY /LPF (0-FEW)
--- NOTE | 2018-07-07 19:20 | NUR ---
Appears sleeping during initial rounds, not in distress. HOB slightly elevated. F/C intact, patent draining QS clear gisel urine. Safety measure and fall precaution maintained. COntinue care as planned.
[2018-07-07 20:00] VITALS: BP 92/56
[2018-07-07] MEDS: CLOZAPINE 100 MG TABLET PO SCH (20:18)
[2018-07-07] MEDS: ZOLPIDEM 5 MG TABLET PO PRN (20:19)
[2018-07-07] MEDS: SIMVASTATIN 40 MG TABLET PO SCH (20:19)
[2018-07-07] MEDS: MELATONIN 10MG TABLET PO SCH (20:21)
[2018-07-08] MEDS: MELATONIN 10MG TABLET PO SCH (02:14)
[2018-07-08 04:30] VITALS: BP 106/61
[2018-07-08] MEDS: BENZONATATE 100 MG CAPSULE PO SCH ×3 (06:03→21:12)
[2018-07-08 07:00] VITALS: BP 115/63
[2018-07-08 07:11] LABS: BASOPHILS % (AUTO) 0.6 % (0.0-2.0); EOSINOPHILS # (AUTO) 0.3 K/uL (0.0-0.7); EOSINOPHILS % (AUTO) 4.2 % (0.0-7.0); HEMATOCRIT 23.8 % (36.7-47.1); LYMPHOCYTES # (AUTO) 1.2 K/uL (20.0-40.0); LYMPHOCYTES % (AUTO) 19.4 % (20.5-51.5); MEAN CORPUSCULAR HEMOGLOBIN 31.1 uug (23.8-33.4); MEAN CORPUSCULAR HGB CONC 34 g/dL (32.5-36.3); MEAN CORPUSCULAR VOLUME 92.2 fL (73.0-96.2); MONOCYTES # (AUTO) 0.8 K/uL (2.0-10.0); MONOCYTES % (AUTO) 13.5 % (0.0-11.0); NEUTROPHILS # (AUTO) 3.7 K/uL (1.8-8.9); NEUTROPHILS % (AUTO) 62.3 % (38.5-71.5); PLATELET COUNT (AUTO) 208 K/uL (152-348); RED BLOOD CELL COUNT(AUTO) 2.59 MIL/uL (4.06-5.63)
[2018-07-08 07:29] LABS: CARBON DIOXIDE 29 mmol/L (21-32); CHLORIDE 103 mmol/L (98-107); CREATININE 0.6 mg/dL (0.6-1.3); GLUCOSE 99 mg/dL (74-106); MAGNESIUM 2.3 mg/dL (1.8-2.4); PHOSPHOROUS 4.2 mg/dL (2.5-4.9); UREA NITROGEN, BLOOD 15 mg/dL (7-18)
[2018-07-08] MEDS: CITALOPRAM 20 MG TABLET PO SCH (08:03)
[2018-07-08] MEDS: CARBIDOPA/LEVODOPA CR 50-200MG TABLET.SA PO SCH ×3 (08:03→16:53)
[2018-07-08] MEDS: DONEPEZIL 10 MG TABLET PO SCH (08:03)
[2018-07-08] MEDS: ACETAMINOPHEN 325 MG TABLET PO PRN (08:03)
[2018-07-08] MEDS: DIVALPROEX ER 250 MG TAB.SR.24H PO SCH ×3 (08:04→16:54)
[2018-07-08] MEDS: ENTRESTO PO SCH ×2 (08:07→21:10)
[2018-07-08] MEDS: POTASSIUM CHLORIDE 8 MEQ TAB.PRT.SR PO SCH (08:07)
[2018-07-08] MEDS: CARVEDILOL 25 MG TABLET PO SCH ×2 (08:08→18:00)
[2018-07-08] MEDS ORDERED: [UNRECOGNIZED DRUG - OTHER] PO PRN (10:15)
[2018-07-08] MEDS: GLYCERIN ADULT RECTAL SUPP EACH RC PRN (13:12)
--- NOTE | 2018-07-08 14:26 | NUR ---
Pt received this morning, AAOx4. Pt assessed, no acute distress, denies pain, or SOB noted. Pt compliant with routine medication administration, VSS. Pt cooperative with therapies as offered. No s/s of infection. F/C intact, care provided, and draining clear yellow/gisel urine. Pt seen by MD. OTC Carlos's Laxative medication from home collected, sent to pharmacy, MD approved Pt to use as additional method to relieve constipation. C/O constipation resolved from PRN suppository administered per MD orders, BMx1 resulted from assistance in ambulating to toilet with 2 staff members via walker. Pt returned to bed following therapy completion. Bed in locked and lowest position with side rails up x2. Seizure precautions, along with all safety and comfort measures in place. Call light and personal items within reach. Will continue to monitor.
[2018-07-08 16:06] VITALS: BP 97/51
[2018-07-08 20:02] VITALS: BP 110/59
[2018-07-08] MEDS: FERROUS GLUCONATE 324 MG TABLET PO SCH (20:31)
[2018-07-08] MEDS: SIMVASTATIN 40 MG TABLET PO SCH (20:32)
[2018-07-08] MEDS: ZOLPIDEM 5 MG TABLET PO PRN (20:32)
[2018-07-08] MEDS: CLOZAPINE 100 MG TABLET PO SCH (20:32)
[2018-07-09 06:23] VITALS: BP 111/61
[2018-07-09] MEDS: BENZONATATE 100 MG CAPSULE PO SCH ×3 (06:44→22:24)
[2018-07-09 07:29] LABS: BASOPHILS % (AUTO) 0.7 % (0.0-2.0); EOSINOPHILS # (AUTO) 0.3 K/uL (0.0-0.7); EOSINOPHILS % (AUTO) 4.2 % (0.0-7.0); HEMATOCRIT 24.9 % (36.7-47.1); HEMOGLOBIN 8.4 g/dL (12.5-16.3); LYMPHOCYTES # (AUTO) 1.4 K/uL (20.0-40.0); MEAN CORPUSCULAR HGB CONC 34 g/dL (32.5-36.3); MEAN CORPUSCULAR VOLUME 91.8 fL (73.0-96.2); MONOCYTES # (AUTO) 0.7 K/uL (2.0-10.0); MONOCYTES % (AUTO) 10.9 % (0.0-11.0); NEUTROPHILS # (AUTO) 4.3 K/uL (1.8-8.9); NEUTROPHILS % (AUTO) 63.2 % (38.5-71.5); PLATELET COUNT (AUTO) 271 K/uL (152-348); RED BLOOD CELL COUNT(AUTO) 2.71 MIL/uL (4.06-5.63); WHITE BLOOD COUNT (AUTO) 6.8 K/uL (3.6-10.2)
[2018-07-09 07:51] VITALS: BP 107/55
[2018-07-09] MEDS: CARVEDILOL 25 MG TABLET PO SCH ×2 (08:00→18:00)
[2018-07-09] MEDS: DONEPEZIL 10 MG TABLET PO SCH (08:55)
[2018-07-09] MEDS: CITALOPRAM 20 MG TABLET PO SCH (08:55)
[2018-07-09] MEDS: ENTRESTO PO SCH ×2 (08:55→20:07)
[2018-07-09] MEDS: DIVALPROEX ER 250 MG TAB.SR.24H PO SCH ×3 (08:56→16:25)
[2018-07-09] MEDS: POTASSIUM CHLORIDE 8 MEQ TAB.PRT.SR PO SCH (08:57)
[2018-07-09] MEDS: CARBIDOPA/LEVODOPA CR 50-200MG TABLET.SA PO SCH ×3 (08:57→16:24)
[2018-07-09] MEDS: GLYCERIN ADULT RECTAL SUPP EACH RC PRN (10:24)
[2018-07-09] MEDS: FERROUS GLUCONATE 324 MG TABLET PO SCH ×2 (11:08→20:07)
--- NOTE | 2018-07-09 14:30 | NUR ---
Report received this morning. Pt assessed, AAOx3, sleepy but easily awoken, NAD, and denies pain. Pt compliant with all routine medication administration. BP medication held due to decreased BP of 107/55, HR 80. Pt seen by MD. Plan of care discussed including no therapy scheduled for today. Pt assisted to toilet for BMx1 following administration of suppository, per MD PRN orders. Pt assisted with walker to return to bed. Bed in locked and lowest position, with side rails up x2, bed alarm on. All comfort and safety needs met. Personal belongings and call light placed within reach. Will continue to monitor.
[2018-07-09 16:51] VITALS: BP 103/55
--- NOTE | 2018-07-09 19:20 | NUR ---
Rec'd pt in bed awake, watching TV. No s/s of acute distress noted. AAOx4. Denies pain. Plan of care discussed. All safety precautions in place. Call light and all personal belongings within reach. Will cont to monitor.
[2018-07-09] MEDS: SIMVASTATIN 40 MG TABLET PO SCH (20:06)
[2018-07-09] MEDS: CLOZAPINE 100 MG TABLET PO SCH (20:07)
[2018-07-09] MEDS: MELATONIN 10MG TABLET PO SCH (20:08)
[2018-07-09] MEDS: ZOLPIDEM 5 MG TABLET PO PRN (20:14)
[2018-07-09 20:40] VITALS: BP 113/64
[2018-07-10 06:00] VITALS: BP 119/70
[2018-07-10] MEDS: BENZONATATE 100 MG CAPSULE PO SCH ×3 (06:04→20:28)
--- NOTE | 2018-07-10 06:31 | NUR ---
Pt in bed asleep, easily arousable to name. Slept well over night. No s/s of acute distress noted. All safety precautions in place. Call light and personal belongings in place. Will endorse to oncoming to shift.
[2018-07-10 07:51] VITALS: BP 132/81
[2018-07-10] MEDS: CARVEDILOL 25 MG TABLET PO SCH ×2 (08:56→17:26)
[2018-07-10] MEDS: DONEPEZIL 10 MG TABLET PO SCH (08:56)
[2018-07-10] MEDS: DIVALPROEX ER 250 MG TAB.SR.24H PO SCH ×3 (08:57→17:26)
[2018-07-10] MEDS: POTASSIUM CHLORIDE 8 MEQ TAB.PRT.SR PO SCH (08:57)
[2018-07-10] MEDS: CITALOPRAM 20 MG TABLET PO SCH (08:57)
[2018-07-10] MEDS: CARBIDOPA/LEVODOPA CR 50-200MG TABLET.SA PO SCH ×3 (08:57→17:26)
[2018-07-10] MEDS: ENTRESTO PO SCH ×2 (08:58→20:28)
[2018-07-10] MEDS: ACETAMINOPHEN 325 MG TABLET PO PRN (09:03)
[2018-07-10] MEDS: FERROUS GLUCONATE 324 MG TABLET PO SCH ×2 (11:00→20:27)
[2018-07-10 16:21] VITALS: BP 121/70
[2018-07-10] MEDS: MELATONIN 10MG TABLET PO SCH (20:26)
[2018-07-10] MEDS: CLOZAPINE 100 MG TABLET PO SCH (20:27)
[2018-07-10] MEDS: SIMVASTATIN 40 MG TABLET PO SCH (20:29)
[2018-07-10 20:31] VITALS: BP 95/54
[2018-07-10] MEDS: ZOLPIDEM 5 MG TABLET PO PRN (20:31)
[2018-07-11] MEDS: BENZONATATE 100 MG CAPSULE PO SCH ×4 (06:07→22:09)
[2018-07-11 06:40] VITALS: BP 121/68
[2018-07-11 07:50] VITALS: BP 124/68
[2018-07-11] MEDS: CARVEDILOL 25 MG TABLET PO SCH ×2 (10:00→18:00)
[2018-07-11] MEDS: POTASSIUM CHLORIDE 8 MEQ TAB.PRT.SR PO SCH (10:07)
[2018-07-11] MEDS: CARBIDOPA/LEVODOPA CR 50-200MG TABLET.SA PO SCH ×3 (10:08→18:00)
[2018-07-11] MEDS: FERROUS GLUCONATE 324 MG TABLET PO SCH ×2 (10:08→21:44)
[2018-07-11] MEDS: CITALOPRAM 20 MG TABLET PO SCH (10:08)
[2018-07-11] MEDS: DONEPEZIL 10 MG TABLET PO SCH (10:08)
[2018-07-11] MEDS: DIVALPROEX ER 250 MG TAB.SR.24H PO SCH ×3 (10:12→18:00)
[2018-07-11] MEDS: ENTRESTO PO SCH ×2 (10:13→21:46)
--- NOTE | 2018-07-11 13:30 | NUR ---
INTERDISCIPLINARY TEAM CONFERENCE
[2018-07-11] MEDS: ACETAMINOPHEN 325 MG TABLET PO PRN (14:22)
[2018-07-11 14:37] LABS: *BILIRUBIN,URIN NEGATIVE (NEGATIVE); *BLOOD, URINE NEGATIVE (NEGATIVE); *CLARITY,URINE CLEAR (CLEAR); *COLOR,URINE YELLOW (YELLOW); *KETONES,URINE NEGATIVE (NEGATIVE); *UROBILINOGEN,URINE 0.2 E.U./dl (NORMAL); LEUKOCYTE ESTERASE ,URINE NEGATIVE (NEGATIVE); NITRITE, URINE NEGATIVE (NEGATIVE); UGLUCOSE NEGATIVE (NEGATIVE)
[2018-07-11 14:50] LABS: MUCUS,URINE MANY /LPF (0-FEW); SPERM,URINE FEW /HPF (NONE SEEN)
[2018-07-11 15:45] VITALS: BP 120/64
[2018-07-11 20:35] VITALS: BP 86/49
[2018-07-11] MEDS: MELATONIN 10MG TABLET PO SCH (21:00)
[2018-07-11 21:16] VITALS: BP 86/49
[2018-07-11] MEDS: SIMVASTATIN 40 MG TABLET PO SCH (21:45)
[2018-07-11] MEDS: CLOZAPINE 100 MG TABLET PO SCH (21:45)
[2018-07-11 21:46] VITALS: BP 100/56
[2018-07-11] MEDS: ZOLPIDEM 5 MG TABLET PO PRN (21:47)
[2018-07-12] MEDS: ACETAMINOPHEN 325 MG TABLET PO PRN (03:25)
--- NOTE | 2018-07-12 03:56 | NUR ---
PATIENT ALERT, NO SOB NO CHEST PAIN, NO SEIZURE ACTIVITY NOTED, S/P R HIP TOTAL REPLACEMENT, COMPLAIN OF MILD PAIN, REQUEST FOR TYLENOL 650MG. PATIENT SLEPT MOST PART OF THE NIGHT. PATIENT USES URINAL FOR BLADDER ELIMINATION, PATIENT HAS EPISODE OF REFUSING TESSALON MEDICATIONS, AND MELATONIN. TOOK AMBIEN FOR SLEEPING WITH NO ADVERSE REACTION NOTED. KEPT CLEAN AND DRY. CALL LIGHT WITHIN REACH.
[2018-07-12 05:51] VITALS: BP 102/64
[2018-07-12] MEDS: BENZONATATE 100 MG CAPSULE PO SCH ×3 (06:00→22:13)
--- NOTE | 2018-07-12 06:15 | NUR ---
PATIENT REFUSED TO BE CHANGED, PATIENT HAS WET PADS, PATIENT HAS EPISODES OF NON COMPLIANT WITH CARE, REFUSED TO TAKE MEDICATIONS, PATIENT REFUSED TO BE CHECK DUE TO BLANCHABLE REDNESS ON BUTTOCKS. PATIENT GET EASILY AGITATED, WILL CONTINUE TO OFFER CARE.
[2018-07-12 07:21] LABS: BASOPHILS # (AUTO) 0.1 K/uL (0.0-8.0); EOSINOPHILS # (AUTO) 0.2 K/uL (0.0-0.7); EOSINOPHILS % (AUTO) 3.6 % (0.0-7.0); HEMATOCRIT 26.6 % (36.7-47.1); LYMPHOCYTES # (AUTO) 1.4 K/uL (20.0-40.0); LYMPHOCYTES % (AUTO) 23.3 % (20.5-51.5); MEAN CORPUSCULAR HEMOGLOBIN 31.3 uug (23.8-33.4); MEAN CORPUSCULAR HGB CONC 34 g/dL (32.5-36.3); MEAN CORPUSCULAR VOLUME 92.1 fL (73.0-96.2); MONOCYTES # (AUTO) 0.6 K/uL (2.0-10.0); NEUTROPHILS # (AUTO) 3.5 K/uL (1.8-8.9); NEUTROPHILS % (AUTO) 61.1 % (38.5-71.5); PLATELET COUNT (AUTO) 433 K/uL (152-348); RED BLOOD CELL COUNT(AUTO) 2.89 MIL/uL (4.06-5.63); WHITE BLOOD COUNT (AUTO) 5.8 K/uL (3.6-10.2)
[2018-07-12 07:46] LABS: CARBON DIOXIDE 30 mmol/L (21-32); CHLORIDE 107 mmol/L (98-107); CREATININE 0.6 mg/dL (0.6-1.3); GLUCOSE 92 mg/dL (74-106); MAGNESIUM 2.2 mg/dL (1.8-2.4); PHOSPHOROUS 3.9 mg/dL (2.5-4.9); POTASSIUM 4.1 mmol/L (3.5-5.1); UREA NITROGEN, BLOOD 12 mg/dL (7-18)
--- NOTE | 2018-07-12 07:53 | NUR ---
Received 67 y/o male pt in bed asleep, as a case of RT total hip replacement. No s/s of acute distress noted. AAOx4. Denies pain.To continue Plan of care. All safety precautions in place. Call light and all personal belongings within reach. Will cont to monitor.
[2018-07-12 08:00] VITALS: BP 121/62
[2018-07-12] MEDS: CARVEDILOL 25 MG TABLET PO SCH ×2 (08:28→17:00)
[2018-07-12] MEDS: CARBIDOPA/LEVODOPA CR 50-200MG TABLET.SA PO SCH ×3 (08:29→17:00)
[2018-07-12] MEDS: CITALOPRAM 20 MG TABLET PO SCH (08:29)
[2018-07-12] MEDS: DONEPEZIL 10 MG TABLET PO SCH (08:30)
[2018-07-12] MEDS: DIVALPROEX ER 250 MG TAB.SR.24H PO SCH ×3 (08:30→17:00)
[2018-07-12] MEDS: ENTRESTO PO SCH ×2 (08:31→20:41)
[2018-07-12] MEDS: POTASSIUM CHLORIDE 8 MEQ TAB.PRT.SR PO SCH (08:32)
[2018-07-12] MEDS: GLYCERIN ADULT RECTAL SUPP EACH RC PRN (10:09)
--- NOTE | 2018-07-12 11:20 | NUR ---
Patient showered, dressing changed per soling, wound healing well no discharges noted. Not in any form of distress. With tolerable pain levels.
[2018-07-12] MEDS: FERROUS GLUCONATE 324 MG TABLET PO SCH ×2 (11:28→20:41)
[2018-07-12 16:00] VITALS: BP 94/61
--- NOTE | 2018-07-12 19:20 | NUR ---
Received patient lying in bed. AOx4. In no acute distress. Denies any pain or SOB. Needs assessed and attended to. Safety measure initiated and call kaye within reach.
[2018-07-12 19:54] VITALS: BP 102/54
[2018-07-12] MEDS: MELATONIN 10MG TABLET PO SCH (20:41)
[2018-07-12] MEDS: CLOZAPINE 100 MG TABLET PO SCH (20:41)
[2018-07-12] MEDS: SIMVASTATIN 40 MG TABLET PO SCH (20:41)
[2018-07-12] MEDS: ZOLPIDEM 5 MG TABLET PO PRN (20:42)
[2018-07-13] MEDS: BENZONATATE 100 MG CAPSULE PO SCH ×3 (06:25→21:19)
--- NOTE | 2018-07-13 06:31 | NUR ---
Slept well last night. AOx4. In no acute distress. Denies any pain or SOB. Needs attended to and met. Safety measure maintained and call kaye within reach.
[2018-07-13 06:55] VITALS: BP 116/62
[2018-07-13 06:58] VITALS: BP 119/57
--- NOTE | 2018-07-13 07:47 | NUR ---
Patient sitting in chair, no sob,resp even nonlabored, no acute distress noted
[2018-07-13] MEDS: ENTRESTO PO SCH ×2 (09:00→20:38)
[2018-07-13] MEDS: POTASSIUM CHLORIDE 8 MEQ TAB.PRT.SR PO SCH ×2 (09:00→09:34)
[2018-07-13 09:07] VITALS: BP 110/60
[2018-07-13] MEDS: CITALOPRAM 20 MG TABLET PO SCH (09:26)
[2018-07-13] MEDS: DONEPEZIL 10 MG TABLET PO SCH (09:26)
[2018-07-13] MEDS: DIVALPROEX ER 250 MG TAB.SR.24H PO SCH ×3 (09:27→17:19)
[2018-07-13] MEDS: CARBIDOPA/LEVODOPA CR 50-200MG TABLET.SA PO SCH ×3 (09:28→17:20)
[2018-07-13] MEDS: CARVEDILOL 25 MG TABLET PO SCH ×2 (09:30→17:24)
[2018-07-13] MEDS: GLYCERIN ADULT RECTAL SUPP EACH RC PRN (09:36)
[2018-07-13] MEDS: FERROUS GLUCONATE 324 MG TABLET PO SCH ×2 (11:56→20:39)
[2018-07-13 18:46] VITALS: BP 101/62
--- NOTE | 2018-07-13 19:42 | NUR ---
no sob,resp even nonlabored,skin warm and dry to touch, no acute distress noted, report given to shift engineer
[2018-07-13] MEDS: MELATONIN 10MG TABLET PO SCH (20:14)
[2018-07-13] MEDS: SIMVASTATIN 40 MG TABLET PO SCH (20:28)
[2018-07-13] MEDS: CLOZAPINE 100 MG TABLET PO SCH (20:28)
[2018-07-13] MEDS: ZOLPIDEM 5 MG TABLET PO PRN (20:29)
[2018-07-13 21:59] VITALS: BP 101/71
[2018-07-14 04:30] VITALS: BP 116/69
[2018-07-14] MEDS: BENZONATATE 100 MG CAPSULE PO SCH ×3 (06:18→21:02)
[2018-07-14 06:44] LABS: CREATININE 0.7 mg/dL (0.6-1.3); POTASSIUM 4.1 mmol/L (3.5-5.1)
[2018-07-14 08:00] VITALS: BP 120/66
[2018-07-14] MEDS: DIVALPROEX ER 250 MG TAB.SR.24H PO SCH ×3 (08:19→16:10)
[2018-07-14] MEDS: DONEPEZIL 10 MG TABLET PO SCH (08:19)
[2018-07-14] MEDS: CARBIDOPA/LEVODOPA CR 50-200MG TABLET.SA PO SCH ×3 (08:19→16:09)
[2018-07-14] MEDS: CITALOPRAM 20 MG TABLET PO SCH (08:19)
[2018-07-14] MEDS: CARVEDILOL 25 MG TABLET PO SCH ×2 (08:20→17:26)
[2018-07-14] MEDS: ENTRESTO PO SCH ×2 (08:26→21:00)
[2018-07-14] MEDS: GLYCERIN ADULT RECTAL SUPP EACH RC PRN (08:59)
[2018-07-14] MEDS: FERROUS GLUCONATE 324 MG TABLET PO SCH ×2 (10:54→20:57)
[2018-07-14] MEDS: ACETAMINOPHEN 325 MG TABLET PO PRN (11:21)
--- NOTE | 2018-07-14 11:29 | NUR ---
Patient complaint of right hip pain, tylenol 650mg given with fair effect. not in distress. Continue therapy for ambulation, ADL, transfer and muscle weakness. will continue monitor
--- NOTE | 2018-07-14 12:32 | NUR ---
Social work consult: Conducted 07/11/18 on OPAL Lal responded to [facility] social work instructor consultation request. Patient expressed that he would like a physical therapist to see him at his home. OPAL Safety Scientist informed and discussed HH services with patient. Patient expressed interest in HH for in-home physical therapy. OPAL Safety Scientist informed pt. that SW Safety Scientist/ARIADNA JOSEPH or ARU CM would gather HH service agency information and follow-up with patient on Saturday. Patient was agreeable with plan. OPAL Safety Scientist/ARAmbar JOSEPH to meet with ARU CM and coordinate patients discharge planning needs.
[2018-07-14 16:07] VITALS: BP 117/65
[2018-07-14] MEDS: SIMVASTATIN 40 MG TABLET PO SCH (20:56)
[2018-07-14] MEDS: CLOZAPINE 100 MG TABLET PO SCH (20:56)
[2018-07-14] MEDS: MELATONIN 10MG TABLET PO SCH (21:00)
[2018-07-14 21:08] VITALS: BP 114/76
[2018-07-14] MEDS: ZOLPIDEM 5 MG TABLET PO PRN (21:36)
--- NOTE | 2018-07-14 22:11 | NUR ---
aaox4 watching TV upon initial rounds. Needs attended. VSS. Kept comfortable. Right hip dressing clean dry and intact. no acute distress noted. Took meds without difficulty. Voiding well. BM today. Will monitor patient. needs attended. fall precautions maintained. Siderails up for safety.
[2018-07-15 04:30] VITALS: BP 126/78
[2018-07-15] MEDS: BENZONATATE 100 MG CAPSULE PO SCH ×3 (05:45→21:23)
[2018-07-15 07:02] LABS: BASOPHILS % (AUTO) 0.7 % (0.0-2.0); EOSINOPHILS # (AUTO) 0.2 K/uL (0.0-0.7); EOSINOPHILS % (AUTO) 3.6 % (0.0-7.0); HEMATOCRIT 26.8 % (36.7-47.1); HEMOGLOBIN 9.2 g/dL (12.5-16.3); LYMPHOCYTES # (AUTO) 1.4 K/uL (20.0-40.0); LYMPHOCYTES % (AUTO) 23.5 % (20.5-51.5); MEAN CORPUSCULAR HEMOGLOBIN 31.2 uug (23.8-33.4); MEAN CORPUSCULAR HGB CONC 34 g/dL (32.5-36.3); MEAN CORPUSCULAR VOLUME 90.7 fL (73.0-96.2); MONOCYTES # (AUTO) 0.5 K/uL (2.0-10.0); MONOCYTES % (AUTO) 8.8 % (0.0-11.0); NEUTROPHILS # (AUTO) 3.7 K/uL (1.8-8.9); NEUTROPHILS % (AUTO) 63.4 % (38.5-71.5); PLATELET COUNT (AUTO) 456 K/uL (152-348); RED BLOOD CELL COUNT(AUTO) 2.96 MIL/uL (4.06-5.63); WHITE BLOOD COUNT (AUTO) 5.9 K/uL (3.6-10.2)
[2018-07-15 08:00] VITALS: BP 127/68
[2018-07-15] MEDS: DONEPEZIL 10 MG TABLET PO SCH (08:20)
[2018-07-15] MEDS: DIVALPROEX ER 250 MG TAB.SR.24H PO SCH ×3 (08:20→16:44)
[2018-07-15] MEDS: CARBIDOPA/LEVODOPA CR 50-200MG TABLET.SA PO SCH ×3 (08:21→16:44)
[2018-07-15] MEDS: CITALOPRAM 20 MG TABLET PO SCH (08:21)
[2018-07-15] MEDS: ENTRESTO PO SCH ×2 (08:21→21:00)
[2018-07-15] MEDS: CARVEDILOL 25 MG TABLET PO SCH ×2 (08:21→17:13)
[2018-07-15] MEDS: FERROUS GLUCONATE 324 MG TABLET PO SCH ×2 (11:23→21:22)
[2018-07-15] MEDS: ACETAMINOPHEN 325 MG TABLET PO PRN (11:56)
[2018-07-15] MEDS: GLYCERIN ADULT RECTAL SUPP EACH RC PRN (15:25)
[2018-07-15 16:00] VITALS: BP 108/65
[2018-07-15] MEDS: MELATONIN 10MG TABLET PO SCH (21:00)
[2018-07-15] MEDS: SIMVASTATIN 40 MG TABLET PO SCH (21:22)
[2018-07-15] MEDS: ZOLPIDEM 5 MG TABLET PO PRN (21:23)
[2018-07-15] MEDS: CLOZAPINE 100 MG TABLET PO SCH (21:23)
[2018-07-15 22:24] VITALS: BP 119/64
--- NOTE | 2018-07-15 22:41 | NUR ---
Received pt resting in bed. AAO x3. No acute distress noted. No c/o pain or discomfort. Meds given as ordered. Pt refused melatonin and requested for ambien instead. Pt's own med entresto not available, pt stated that he would have to buy some more. Safety measures maintained. Bed alarm on. Call light and personal belongings within reach. Will continue to monitor.
[2018-07-16 05:21] VITALS: BP 128/71
[2018-07-16] MEDS: BENZONATATE 100 MG CAPSULE PO SCH ×3 (06:17→21:17)
[2018-07-16 06:43] LABS: BASOPHILS % (AUTO) 0.8 % (0.0-2.0); EOSINOPHILS # (AUTO) 0.2 K/uL (0.0-0.7); EOSINOPHILS % (AUTO) 3.6 % (0.0-7.0); HEMATOCRIT 28.6 % (36.7-47.1); HEMOGLOBIN 9.7 g/dL (12.5-16.3); LYMPHOCYTES # (AUTO) 1.3 K/uL (20.0-40.0); LYMPHOCYTES % (AUTO) 23.1 % (20.5-51.5); MEAN CORPUSCULAR HEMOGLOBIN 31.2 uug (23.8-33.4); MEAN CORPUSCULAR HGB CONC 34 g/dL (32.5-36.3); MEAN CORPUSCULAR VOLUME 91.8 fL (73.0-96.2); MONOCYTES # (AUTO) 0.6 K/uL (2.0-10.0); MONOCYTES % (AUTO) 10.9 % (0.0-11.0); NEUTROPHILS # (AUTO) 3.5 K/uL (1.8-8.9); NEUTROPHILS % (AUTO) 61.6 % (38.5-71.5); PLATELET COUNT (AUTO) 472 K/uL (152-348); RED BLOOD CELL COUNT(AUTO) 3.11 MIL/uL (4.06-5.63); WHITE BLOOD COUNT (AUTO) 5.7 K/uL (3.6-10.2)
--- NOTE | 2018-07-16 07:45 | NUR ---
PATIENT NOTED SITTING UP IN BED AT THIS TIME, DENIES PAIN, NO SIGNS OF DISTRESS NOTED, CALL LIGHT IN REACH, BED LOCKED AND IN LOWEST POSITION, ALL NEEDS MET
[2018-07-16 08:00] VITALS: BP 122/72
[2018-07-16] MEDS: ENTRESTO PO SCH ×2 (09:00→21:00)
[2018-07-16] MEDS: CITALOPRAM 20 MG TABLET PO SCH (09:57)
[2018-07-16] MEDS: CARBIDOPA/LEVODOPA CR 50-200MG TABLET.SA PO SCH ×3 (09:57→17:19)
[2018-07-16] MEDS: DONEPEZIL 10 MG TABLET PO SCH (09:57)
[2018-07-16] MEDS: DIVALPROEX ER 250 MG TAB.SR.24H PO SCH ×3 (09:58→17:19)
[2018-07-16] MEDS: CARVEDILOL 25 MG TABLET PO SCH ×2 (09:59→17:20)
[2018-07-16] MEDS: FERROUS GLUCONATE 324 MG TABLET PO SCH ×2 (10:00→21:17)
[2018-07-16] MEDS: ACETAMINOPHEN 325 MG TABLET PO PRN (15:38)
[2018-07-16 16:00] VITALS: BP 144/79
--- NOTE | 2018-07-16 19:29 | NUR ---
No changes this shift, vitals are stable, took all medications this shift
[2018-07-16] MEDS: MELATONIN 10MG TABLET PO SCH (21:00)
[2018-07-16] MEDS: SIMVASTATIN 40 MG TABLET PO SCH (21:17)
[2018-07-16] MEDS: CLOZAPINE 100 MG TABLET PO SCH (21:17)
[2018-07-16] MEDS: ZOLPIDEM 5 MG TABLET PO PRN (21:17)
[2018-07-16 21:39] VITALS: BP 110/59
--- NOTE | 2018-07-16 21:51 | NUR ---
Received pt resting in bed. AAO x3. No acute distress noted. Denies pain or discomfort. Hip xray resulted and relayed to Dr. Smith. No new order. Safety measures maintained. Call light and personal belongings within reach. Will continue to monitor.
[2018-07-17 04:58] VITALS: BP 129/82
[2018-07-17] MEDS: BENZONATATE 100 MG CAPSULE PO SCH ×2 (06:00→13:48)
[2018-07-17] MEDS: DIVALPROEX ER 250 MG TAB.SR.24H PO SCH ×2 (08:47→13:48)
[2018-07-17] MEDS: CARBIDOPA/LEVODOPA CR 50-200MG TABLET.SA PO SCH ×2 (08:47→13:48)
[2018-07-17] MEDS: DONEPEZIL 10 MG TABLET PO SCH (08:47)
[2018-07-17] MEDS: CITALOPRAM 20 MG TABLET PO SCH (08:47)
[2018-07-17] MEDS: CARVEDILOL 25 MG TABLET PO SCH (08:47)
[2018-07-17] MEDS: ENTRESTO PO SCH (08:48)
[2018-07-17] MEDS: GLYCERIN ADULT RECTAL SUPP EACH RC PRN (08:51)
[2018-07-17 09:16] VITALS: BP 130/73
[2018-07-17] MEDS: FERROUS GLUCONATE 324 MG TABLET PO SCH (10:53)
--- NOTE | 2018-07-17 11:00 | NUR ---
Patient showered with minimal assistance. Dressing changed per soiling. Right hip surgical wound, dry, no discharges and healing well. Tolerated therapy well, no SOB or pain noted.
--- NOTE | 2018-07-17 12:15 | NUR ---
Relayed result of Xray with Dr Smith and asked clearance for discharge. said Ok to discharge patient and not to worry about recent Xray result.
--- NOTE | 2018-07-17 14:45 | NUR ---
Discharge packet explained. Education and prescriptions made aware to patient. Instructed patient to medications as prescribed. Instructed to take medications as prescribed and follow-up with Dr Smith on 07/23/18 at 13:30PM. Routine discharge care done. No pain noted, no SOB or chest pains, with baseline LOC. Went home accompanied by Rony, burglar alarm operator via private transport c/o Stacy.
== END 2018-07-17 14:45 | disposition home health service (06) | DRG 560 ==
PROVIDERS: ADMIT Physical Medicine & Rehabilitation Pain Medicine; ATTEND Physical Medicine & Rehabilitation Pain Medicine
PROC: 30233N1 Transfusion of Nonautologous Red Blood Cells into Peripheral Vein, Percutaneous Approach (ICD-10-PCS; principal; 2018-07-04)
DX: Z47.1 Aftercare following joint replacement surgery (principal); I50.42 Chronic combined systolic (congestive) and diastolic (congestive) heart failure; D62 Acute posthemorrhagic anemia; I11.0 Hypertensive heart disease with heart failure; Z96.641 Presence of right artificial hip joint; Z96.653 Presence of artificial knee joint, bilateral; E66.9 Obesity, unspecified; Z68.26 Body mass index [BMI] 26.0-26.9, adult; G20 Parkinson's disease; G40.909 Epilepsy, unspecified, not intractable, without status epilepticus; I25.10 Atherosclerotic heart disease of native coronary artery without angina pectoris; R53.1 Weakness; Z95.810 Presence of automatic (implantable) cardiac defibrillator; I25.5 Ischemic cardiomyopathy; I70.0 Atherosclerosis of aorta; J45.909 Unspecified asthma, uncomplicated; E78.5 Hyperlipidemia, unspecified; R73.03 Prediabetes; K59.00 Constipation, unspecified; R31.9 Hematuria, unspecified; M19.90 Unspecified osteoarthritis, unspecified site
CPT/HCPCS: 36415; 70030-TC; 71045; 73502; 83735; 84100; 85025; 86850; 86900; 86901; 86920; 92523; 94664; 97110; 97112; 97116; 97165; 97530; 97535; J7040; P9016-BL; P9021

== ENCOUNTER 2018-08-24 13:23 | Emergency (ER) | payer MEDICARE ==
[~2018-08-24] VITALS: Ht 193 cm; Wt 96.2 kg
[~2018-08-24 13:23] MED LIST changes: +ALBU2.5V13 IH; +HYDR-3980 PO; +ZOLP10TA2 PO
[2018-08-24 15:57] VITALS: BP 122/90
== END 2018-08-24 15:58 | disposition home or self-care (01) ==
LOC: ER 13:26
DX: G89.18 Other acute postprocedural pain (principal); M25.551 Pain in right hip; E78.5 Hyperlipidemia, unspecified; I50.9 Heart failure, unspecified; J45.909 Unspecified asthma, uncomplicated; Z95.0 Presence of cardiac pacemaker; Z79.899 Other long term (current) drug therapy
CPT/HCPCS: 73502; A4663

== ENCOUNTER 2018-09-03 15:25 | Inpatient (IN) | payer MEDICARE ==
[~2018-09-03] VITALS: Ht 165.1 cm; Wt 82.6 kg
--- NOTE | 2018-09-03 15:39 | NUR ---
PT A/OX4, BIB RA[facility], C/O R HIP PAIN S/P GLF AT HOME. SHORTENING OF THE RLE PRESENT. PT ARRIVED W/ 20G IV ACCESS IN L HAND PLACED BY YESIKA, PT WAS ADMIN 100 MCG FENTANYL IV AND 4 MG ONDANSETRON IV IN THE FIELD PAEDIATRIC THORACIC PHYSICIAN. PT DENIES C/P, SOB, N/V/D, DIZZINESS, HEADACHE.
[2018-09-03] MEDS ORDERED: PROPOFOL 200 MG/20 ML BOTTLE ONE (15:59)
[2018-09-03] MEDS ORDERED: PROPOFOL 200 MG/20 ML BOTTLE IV ONE (16:00)
--- NOTE | 2018-09-03 16:27 | NUR ---
ER PERFORMED CLOSED REDUCTION OF R HIP DISLOCATION AT 1617. PT AWAKE W/ NO RESPIRATORY DISTRESS AT 1621.
--- NOTE | 2018-09-03 16:35 | NUR ---
NORMA DORSEY AT BEDSIDE FOR PT UPDATE.
--- NOTE | 2018-09-03 16:46 | NUR ---
NORMA DORSEY SPEAKING W/ DR. SPEAR, ORTHOPEDIST, RE PT'S CASE.
--- NOTE | 2018-09-03 17:22 | NUR ---
PT UNABLE TO AMBULATE W/ 2 MAN ASSIST. ER NOTIFIED.
--- NOTE | 2018-09-03 17:24 | NUR ---
PAGED Plazes FOR PANEL CALL.
--- NOTE | 2018-09-03 17:33 | NUR ---
BUDDY HORN NP, AT BEDSIDE FOR ADMISSION ASSESSMENT.
[2018-09-03 17:35] LABS: BASOPHILS # (AUTO) 0.1 K/uL (0.0-8.0); BASOPHILS % (AUTO) 0.9 % (0.0-2.0); EOSINOPHILS # (AUTO) 0.1 K/uL (0.0-0.7); EOSINOPHILS % (AUTO) 1.2 % (0.0-7.0); HEMATOCRIT 38.3 % (36.7-47.1); HEMOGLOBIN 12.7 g/dL (12.5-16.3); LYMPHOCYTES % (AUTO) 15.6 % (20.5-51.5); MEAN CORPUSCULAR HEMOGLOBIN 30.9 uug (23.8-33.4); MEAN CORPUSCULAR HGB CONC 33 g/dL (32.5-36.3); MEAN CORPUSCULAR VOLUME 93.1 fL (73.0-96.2); MONOCYTES # (AUTO) 0.5 K/uL (2.0-10.0); MONOCYTES % (AUTO) 8.4 % (0.0-11.0); NEUTROPHILS # (AUTO) 4.8 K/uL (1.8-8.9); NEUTROPHILS % (AUTO) 73.9 % (38.5-71.5); PLATELET COUNT (AUTO) 220 K/uL (152-348); RED BLOOD CELL COUNT(AUTO) 4.12 MIL/uL (4.06-5.63); WHITE BLOOD COUNT (AUTO) 6.4 K/uL (3.6-10.2)
--- NOTE | 2018-09-03 17:39 | NUR ---
ADMITTING REPORT GIVEN TO JERARDO JUAREZ.
[2018-09-03 17:44] LABS: CREATININE 0.7 mg/dL (0.6-1.3); POTASSIUM 4.2 mmol/L (3.5-5.1)
--- NOTE | 2018-09-03 17:51 | NUR ---
Pt. admitted to TELE 305, under care of RG HORN. Belongs List completed
[2018-09-03 17:56] LABS: BILIRUBIN,TOTAL 0.3 mg/dL (0.2-1.0); TOTAL PROTEIN, SERUM 6.6 g/dL (6.4-8.2)
--- NOTE | 2018-09-03 18:15 | NUR ---
Patient in from ER. AAOX4. Iv line to G20. SBP of 113/74, temp of 97.9. HR of 70. Over all skin c.d.i. BLE by abductor. circulation intact.
[2018-09-03] MEDS ORDERED: HYDROCODONE/APAP 10-325 MG TABLET PO PRN (18:30)
[2018-09-03] MEDS ORDERED: ACETAMINOPHEN 325 MG TABLET PO PRN (18:30)
[2018-09-03] MEDS ORDERED: TEMAZEPAM 15 MG CAPSULE PO PRN (18:30)
[2018-09-03] MEDS ORDERED: MAGNESIUM HYDROXIDE 30 ML LIQUID UDC PO PRN (18:30)
[2018-09-03] MEDS ORDERED: ONDANSETRON 4 MG/2 ML VIAL IV PRN (18:30)
[2018-09-03] MEDS ORDERED: ALBUTEROL SULFATE 2.5 MG/ 0.5 ML NEBU NEB PRN (18:30)
[2018-09-03] MEDS ORDERED: Z GUARD REMEDY PASTE 57 GM TUBE TOP PRN (18:30)
[2018-09-03 18:35] LABS: *BILIRUBIN,URIN NEGATIVE (NEGATIVE); *BLOOD, URINE 1+ (NEGATIVE); *CLARITY,URINE CLEAR (CLEAR); *COLOR,URINE YELLOW (YELLOW); *KETONES,URINE TRACE (NEGATIVE); *UROBILINOGEN,URINE 0.2 E.U./dl (NORMAL); LEUKOCYTE ESTERASE ,URINE NEGATIVE (NEGATIVE); NITRITE, URINE NEGATIVE (NEGATIVE); UGLUCOSE NEGATIVE (NEGATIVE)
[2018-09-03 18:37] VITALS: BP 113/74
--- NOTE | 2018-09-03 18:39 | NUR ---
Belongings list review with patient in with underwear on, shoes, pink shirt and pants and belt.
[2018-09-03 18:45] LABS: WBC,URINE NONE SEEN /HPF (0-3)
[2018-09-03] MEDS ORDERED: FUROSEMIDE 40 MG/4 ML VIAL IV ONE (19:00)
--- NOTE | 2018-09-03 19:30 | NUR ---
Received patient awake and alert in bed. Able to make needs known. No signs of acute distress noted. Complains of right hip pain, no complaints of SOB, patient is on room air saturating at 92% Abduction pillow is in place. Heplock on the left hand is intact and patent. Safety measures initiated, bed is low and locked, call light within reach. Will continue to monitor.
[2018-09-03] MEDS: MORPHINE SULFATE 2 MG/1 ML DISP.SYRIN IV PRN (19:41)
[2018-09-03 20:00] VITALS: BP 101/74
--- NOTE | 2018-09-03 20:45 | NUR ---
Patient had a one time dose of lasix 40mg. However BP was 101/71. Waited an hour to recheck BP and was 99/69. Informed Dr. Shoemaker and said to hold dose. Will continue to monitor
[2018-09-03] MEDS: SIMVASTATIN 40 MG TABLET PO SCH (20:50)
[2018-09-03] MEDS: CLOZAPINE 100 MG TABLET PO SCH (20:50)
[2018-09-03] MEDS ORDERED: CLOZAPINE 25 MG TABLET PO SCH (21:00)
[2018-09-03] MEDS ORDERED: ZOLPIDEM 5 MG TABLET PO SCH (21:00)
[2018-09-04] VITALS: BP 116/69
[2018-09-04] MEDS: ZOLPIDEM 5 MG TABLET PO PRN ×2 (02:03→20:33)
[2018-09-04 04:00] VITALS: BP 132/70
--- NOTE | 2018-09-04 06:09 | NUR ---
Patient slept well throughout the night. No signs of acute distress noted. Complained of pain to the right hip with PRN pain medications given and was effective. No complaints of SOB. Medications given as ordered and tolerated well. Safety measures given.
[2018-09-04] MEDS: PANTOPRAZOLE SODIUM 40 MG TABLET.DR PO SCH (06:26)
[2018-09-04 06:40] LABS: BASOPHILS % (AUTO) 0.8 % (0.0-2.0); EOSINOPHILS # (AUTO) 0.2 K/uL (0.0-0.7); EOSINOPHILS % (AUTO) 3.2 % (0.0-7.0); HEMATOCRIT 34.3 % (36.7-47.1); HEMOGLOBIN 11.5 g/dL (12.5-16.3); LYMPHOCYTES # (AUTO) 1.8 K/uL (20.0-40.0); LYMPHOCYTES % (AUTO) 32.9 % (20.5-51.5); MEAN CORPUSCULAR HEMOGLOBIN 31.1 uug (23.8-33.4); MEAN CORPUSCULAR HGB CONC 33 g/dL (32.5-36.3); MONOCYTES # (AUTO) 0.8 K/uL (2.0-10.0); MONOCYTES % (AUTO) 14.7 % (0.0-11.0); NEUTROPHILS # (AUTO) 2.6 K/uL (1.8-8.9); NEUTROPHILS % (AUTO) 48.4 % (38.5-71.5); PLATELET COUNT (AUTO) 209 K/uL (152-348); RED BLOOD CELL COUNT(AUTO) 3.69 MIL/uL (4.06-5.63); WHITE BLOOD COUNT (AUTO) 5.4 K/uL (3.6-10.2)
[2018-09-04 07:05] LABS: BILIRUBIN,DIRECT 0.1 mg/dL (0.0-0.2); BILIRUBIN,TOTAL 0.2 mg/dL (0.2-1.0); CREATININE 0.7 mg/dL (0.6-1.3); MAGNESIUM 2.2 mg/dL (1.8-2.4); PHOSPHOROUS 4.1 mg/dL (2.5-4.9); POTASSIUM 3.4 mmol/L (3.5-5.1); THYROID STIMULATING HORMONE 3.229 mIU/mL (0.358-3.740)
[2018-09-04] MEDS ORDERED: CARVEDILOL 25 MG TABLET PO SCH ×2 (08:00→18:00)
[2018-09-04] MEDS: CITALOPRAM 20 MG TABLET PO SCH (08:10)
[2018-09-04] MEDS: CARBIDOPA/LEVODOPA CR 50-200MG TABLET.SA PO SCH ×3 (08:10→16:09)
[2018-09-04] MEDS: DONEPEZIL 10 MG TABLET PO SCH (08:10)
[2018-09-04] MEDS: CELECOXIB 200 MG CAPSULE PO SCH (08:10)
[2018-09-04] MEDS: DIVALPROEX ER 500 MG TAB.SR.24H PO SCH ×3 (08:10→16:09)
[2018-09-04] MEDS: MORPHINE SULFATE 2 MG/1 ML DISP.SYRIN IV PRN (08:38)
[2018-09-04] MEDS ORDERED: Medication Not On Formulary EA (Sacubitril/Valsartan (Entresto 97 mg-103 mg Tablet) 1 EA PO SCH (09:00)
[2018-09-04 11:21] VITALS: BP 90/46
[2018-09-04] MEDS ORDERED: POTASSIUM CHLORIDE 20 MEQ TAB.PRT.SR PO ONE (12:15)
[2018-09-04 15:41] VITALS: BP 94/52
[2018-09-04] MEDS: CARVEDILOL 12.5 MG TABLET PO SCH (17:15)
[2018-09-04] MEDS: ENTRESTO PO SCH (17:28)
--- NOTE | 2018-09-04 20:00 | NUR ---
RECEIVED PATIENT AWAKE IN BED. A/O X4. DENIES PAIN AT THIS TIME. NO RESP. DISTRESS NOTED. VSS. H/L INTACT AND PATENT. BED ALARM ON. CALL LIGHT IN REACH. ALL NEEDS ATTENDED. WILL CONTINUE TO MONITOR AND ASSESS.
[2018-09-04 20:15] VITALS: BP 125/63
[2018-09-04] MEDS: SIMVASTATIN 40 MG TABLET PO SCH (20:30)
[2018-09-04] MEDS: CLOZAPINE 100 MG TABLET PO SCH (20:31)
[2018-09-05 06:14] VITALS: BP 122/59
[2018-09-05] MEDS: PANTOPRAZOLE SODIUM 40 MG TABLET.DR PO SCH (06:17)
--- NOTE | 2018-09-05 06:38 | NUR ---
PATIENT ASLEEP IN BED. SLEPT WELL THROUGHOUT THE NIGHT. VSS. CALL LIGHT IN REACH. ALL NEEDS ATTENDED. WILL CONTINUE TO MONITOR AND ASSESS.
[2018-09-05 07:00] LABS: CREATININE 0.7 mg/dL (0.6-1.3); POTASSIUM 4.2 mmol/L (3.5-5.1)
[2018-09-05 07:37] LABS: BASOPHILS # (AUTO) 0.1 K/uL (0.0-8.0); BASOPHILS % (AUTO) 1.4 % (0.0-2.0); EOSINOPHILS # (AUTO) 0.2 K/uL (0.0-0.7); EOSINOPHILS % (AUTO) 3.2 % (0.0-7.0); HEMATOCRIT 36.5 % (36.7-47.1); HEMOGLOBIN 12.2 g/dL (12.5-16.3); LYMPHOCYTES # (AUTO) 1.8 K/uL (20.0-40.0); LYMPHOCYTES % (AUTO) 32.1 % (20.5-51.5); MEAN CORPUSCULAR HEMOGLOBIN 31.3 uug (23.8-33.4); MEAN CORPUSCULAR HGB CONC 34 g/dL (32.5-36.3); MEAN CORPUSCULAR VOLUME 93.2 fL (73.0-96.2); MONOCYTES # (AUTO) 0.6 K/uL (2.0-10.0); MONOCYTES % (AUTO) 11.1 % (0.0-11.0); NEUTROPHILS # (AUTO) 2.9 K/uL (1.8-8.9); NEUTROPHILS % (AUTO) 52.2 % (38.5-71.5); PLATELET COUNT (AUTO) 222 K/uL (152-348); RED BLOOD CELL COUNT(AUTO) 3.91 MIL/uL (4.06-5.63); WHITE BLOOD COUNT (AUTO) 5.5 K/uL (3.6-10.2)
[2018-09-05] MEDS: CARVEDILOL 12.5 MG TABLET PO SCH ×2 (08:06→17:11)
[2018-09-05] MEDS: ENTRESTO PO SCH ×2 (08:06→16:24)
[2018-09-05] MEDS: DONEPEZIL 10 MG TABLET PO SCH (08:07)
[2018-09-05] MEDS: DIVALPROEX ER 500 MG TAB.SR.24H PO SCH ×3 (08:07→16:23)
[2018-09-05] MEDS: CITALOPRAM 20 MG TABLET PO SCH (08:07)
[2018-09-05] MEDS: CARBIDOPA/LEVODOPA CR 50-200MG TABLET.SA PO SCH ×3 (08:07→16:23)
[2018-09-05] MEDS: CELECOXIB 200 MG CAPSULE PO SCH (08:18)
[2018-09-05 11:02] VITALS: BP 135/68
[2018-09-05 15:30] VITALS: BP 100/62
--- NOTE | 2018-09-05 19:30 | NUR ---
Patient received lying in bed and talking on phone. a/ox4. no signs of acute distress. safety and comfort measures provided. will continue to monitor.
[2018-09-05 20:00] VITALS: BP 129/76
[2018-09-05] MEDS: ZOLPIDEM 5 MG TABLET PO PRN (20:46)
[2018-09-05] MEDS: SIMVASTATIN 40 MG TABLET PO SCH (21:11)
[2018-09-05] MEDS: CLOZAPINE 100 MG TABLET PO SCH (21:11)
[2018-09-06 04:49] VITALS: BP 107/74
--- NOTE | 2018-09-06 05:48 | NUR ---
patient slept intermittently throughout the night. a/ox4. no signs of acute distress noted. medications administered and tolerated well. safety and comfort measure. will endorse care to morning nurse accordingly.
[2018-09-06] MEDS: PANTOPRAZOLE SODIUM 40 MG TABLET.DR PO SCH (06:03)
[2018-09-06 07:54] LABS: BASOPHILS % (AUTO) 0.8 % (0.0-2.0); EOSINOPHILS # (AUTO) 0.3 K/uL (0.0-0.7); HEMATOCRIT 38.3 % (36.7-47.1); HEMOGLOBIN 13.1 g/dL (12.5-16.3); LYMPHOCYTES # (AUTO) 1.5 K/uL (20.0-40.0); MEAN CORPUSCULAR HEMOGLOBIN 31.3 uug (23.8-33.4); MEAN CORPUSCULAR HGB CONC 34 g/dL (32.5-36.3); MEAN CORPUSCULAR VOLUME 91.7 fL (73.0-96.2); MONOCYTES # (AUTO) 0.7 K/uL (2.0-10.0); NEUTROPHILS # (AUTO) 3.1 K/uL (1.8-8.9); NEUTROPHILS % (AUTO) 55.2 % (38.5-71.5); PLATELET COUNT (AUTO) 239 K/uL (152-348); RED BLOOD CELL COUNT(AUTO) 4.18 MIL/uL (4.06-5.63); WHITE BLOOD COUNT (AUTO) 5.7 K/uL (3.6-10.2)
[2018-09-06 08:00] VITALS: BP 138/73
[2018-09-06] MEDS: CITALOPRAM 20 MG TABLET PO SCH (08:10)
[2018-09-06] MEDS: DIVALPROEX ER 500 MG TAB.SR.24H PO SCH ×3 (08:10→17:08)
[2018-09-06] MEDS: CELECOXIB 200 MG CAPSULE PO SCH (08:10)
--- NOTE | 2018-09-06 08:10 | NUR ---
at this time patient educated on risk for aspiration with eating in a less than 30 degree angle. 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
[2018-09-06] MEDS: DONEPEZIL 10 MG TABLET PO SCH (08:11)
[2018-09-06] MEDS: CARBIDOPA/LEVODOPA CR 50-200MG TABLET.SA PO SCH ×3 (08:11→17:08)
[2018-09-06] MEDS: CARVEDILOL 12.5 MG TABLET PO SCH ×2 (08:12→17:08)
[2018-09-06] MEDS: ENTRESTO PO SCH ×2 (08:17→17:10)
[2018-09-06 08:32] LABS: CREATININE 0.7 mg/dL (0.6-1.3); POTASSIUM 4.3 mmol/L (3.5-5.1)
[2018-09-06] MEDS: MORPHINE SULFATE 2 MG/1 ML DISP.SYRIN IV PRN (09:44)
[2018-09-06] MEDS ORDERED: MORPHINE SULFATE 2 MG/1 ML DISP.SYRIN IV PRN (10:30)
[2018-09-06] MEDS ORDERED: MORPHINE SULFATE 4 MG/1 ML DISP.SYRIN IV PRN (11:00)
[2018-09-06 11:22] VITALS: BP 132/92
--- NOTE | 2018-09-06 12:00 | NUR ---
Patient eating lunch in and almost flat position and refusing to have the head of the bed elevated to observe aspiration precautions.
[2018-09-06 15:40] VITALS: BP 108/51
--- NOTE | 2018-09-06 17:34 | NUR ---
At this time patient with coughing while eating but refusing to raise the head of the bed. Patient one more time educated on aspiration risk. Patient stating "thanks for your concern but I know and I don't like to eat in that position cause it hurts my back".
[2018-09-06 20:23] VITALS: BP 113/64
[2018-09-06] MEDS: ZOLPIDEM 5 MG TABLET PO PRN (20:53)
[2018-09-06] MEDS: CLOZAPINE 100 MG TABLET PO SCH (20:53)
[2018-09-06] MEDS: SIMVASTATIN 40 MG TABLET PO SCH (20:53)
--- NOTE | 2018-09-06 21:44 | NUR ---
Called the After hours answering service for Cardiology, to follow up on patients cardiology consult. No answer & unable to leave messages. Patient has an Open Reduction of Right Hip with Exchange of Femoral Head Component scheduled in AM. Was calling to verify that the patient has been cleared by Cardiology. Will endorse to oncoming nurse in AM
--- NOTE | 2018-09-06 22:11 | NUR ---
TELEPHONE CALL FROM DR CHISHOLM AND INFORMED THIS NURSE THAT DR SANTOS WILL BE PUTTING IN NOTES THAT PATIENT IS CLEAR FOR SURGERY.
[2018-09-07] VITALS (7 sets, daily range): BP systolic 90–124; BP diastolic 52–75
[2018-09-07] MEDS: PANTOPRAZOLE SODIUM 40 MG TABLET.DR PO SCH (06:19)
[2018-09-07 07:09] LABS: BASOPHILS # (AUTO) 0.1 K/uL (0.0-8.0); BASOPHILS % (AUTO) 1.4 % (0.0-2.0); EOSINOPHILS # (AUTO) 0.3 K/uL (0.0-0.7); EOSINOPHILS % (AUTO) 5.1 % (0.0-7.0); HEMATOCRIT 39.8 % (36.7-47.1); HEMOGLOBIN 13.3 g/dL (12.5-16.3); LYMPHOCYTES # (AUTO) 1.7 K/uL (20.0-40.0); LYMPHOCYTES % (AUTO) 29.7 % (20.5-51.5); MEAN CORPUSCULAR HGB CONC 33 g/dL (32.5-36.3); MEAN CORPUSCULAR VOLUME 93.1 fL (73.0-96.2); MONOCYTES # (AUTO) 0.6 K/uL (2.0-10.0); MONOCYTES % (AUTO) 10.5 % (0.0-11.0); NEUTROPHILS % (AUTO) 53.3 % (38.5-71.5); PLATELET COUNT (AUTO) 251 K/uL (152-348); RED BLOOD CELL COUNT(AUTO) 4.27 MIL/uL (4.06-5.63); WHITE BLOOD COUNT (AUTO) 5.6 K/uL (3.6-10.2)
[2018-09-07 07:20] LABS: CREATININE 0.8 mg/dL (0.6-1.3)
[2018-09-07] MEDS: CARVEDILOL 12.5 MG TABLET PO SCH ×2 (08:00→17:57)
[2018-09-07] MEDS ORDERED: POLYMYXIN B SULFATE 500,000 UNITS, BACITRACIN 50,000 UNITS, NORMAL SALINE 20 ML MC ONE ×3 (08:30)
[2018-09-07] MEDS: CARBIDOPA/LEVODOPA CR 50-200MG TABLET.SA PO SCH ×3 (08:33→17:58)
[2018-09-07] MEDS: DIVALPROEX ER 500 MG TAB.SR.24H PO SCH ×3 (08:33→17:58)
[2018-09-07] MEDS: CITALOPRAM 20 MG TABLET PO SCH (08:33)
[2018-09-07] MEDS: CELECOXIB 200 MG CAPSULE PO SCH (08:34)
[2018-09-07] MEDS: DONEPEZIL 10 MG TABLET PO SCH (08:35)
[2018-09-07] MEDS: ENTRESTO PO SCH ×2 (08:37→17:39)
--- NOTE | 2018-09-07 08:39 | NUR ---
ALL MEDS HELD PER [facility] RN INCLUDING BETA BLOCKERS BP 124/75--76 18 O2 SAT=94% ON R/A
[2018-09-07] MEDS ORDERED: VANCOMYCIN 1000 MG VIAL ONE (08:53)
[2018-09-07] MEDS ORDERED: FENTANYL CITRATE 100 MCG/2 ML AMPUL ONE ×3 (09:24→11:36)
[2018-09-07] MEDS ORDERED: ROCURONIUM BROMIDE 50 MG/5 ML VIAL ONE ×2 (09:25→10:38)
[2018-09-07] MEDS ORDERED: MIDAZOLAM HCL 2 MG/2 ML VIAL ONE (09:25)
[2018-09-07] MEDS ORDERED: HYDROCODONE/APAP 10-325 MG TABLET PO PRN (11:15)
--- NOTE | 2018-09-07 12:35 | NUR ---
RETURNED FROM R/R V/S STABLE C/O MINIMAL RIGHT HIP DISCOMFORT. RESP EVEN AND UNLABORED. NEURO AND CIRC CHECKS TO RIGHT FOOT SATIS AND UNCHANGED. RIGHT FOOT--COLOR GOOD, WARM, WITH NORMAL SENSATION.
[2018-09-07] MEDS: MORPHINE SULFATE 4 MG/1 ML DISP.SYRIN IV PRN ×2 (12:49→22:09)
[2018-09-07] MEDS: POTASSIUM CHLORIDE 20 MEQ in IV D5 1/2 NS 1000 ML 1,000 ML IV PRN (16:38)
[2018-09-07] MEDS: CEFAZOLIN 1 G in PREMIXED 1 EACH IV SCH (17:28)
--- NOTE | 2018-09-07 20:00 | NUR ---
Received pt. resting in bed alert oriented x4. Pt. denies any pain or discomfort at this time. Pt. denies any SOB or difficulty breathing. IV in left hand 20 gauge intact, patent, hep lock. IV in right hand 18 gauge intact, patent, running fluids. Pt. has narayanan in draining yellow urine. Bandage from surgery on R upper leg is dry and clean. Pulse and sensation in R foot. Abductor pillow in place. Will continue to monitor pt. throughout night.
[2018-09-07] MEDS: SIMVASTATIN 40 MG TABLET PO SCH (20:37)
[2018-09-07] MEDS: ZOLPIDEM 5 MG TABLET PO PRN (20:37)
[2018-09-07] MEDS: CLOZAPINE 100 MG TABLET PO SCH (20:38)
[2018-09-07] MEDS ORDERED: GLYCOPYRROLATE 0.2 MG/ML VIAL MC ONE (21:09)
[2018-09-07] MEDS ORDERED: LIDOCAINE-MPF 2% 5 ML VIAL MC ONE (21:09)
[2018-09-07] MEDS ORDERED: ONDANSETRON 4 MG/2 ML VIAL IV ONE (21:09)
[2018-09-07] MEDS ORDERED: EPHEDRINE SULFATE 50 MG/ML AMPUL MC ONE (21:09)
[2018-09-07] MEDS ORDERED: IRR NORMAL SALINE IRRIGATION 1,000 ML BOTTLE IR ONE (21:09)
[2018-09-07] MEDS ORDERED: NEOSTIGMINE METHYLSULFATE 10 MG/10 ML VIAL IV ONE (21:09)
[2018-09-07] MEDS ORDERED: PHENYLEPHRINE 10 MG/1 ML VIAL MC ONE (21:09)
[2018-09-07] MEDS ORDERED: SEVOFLURANE 250 ML BOTTLE IH ONE (21:09)
[2018-09-07] MEDS ORDERED: CEFAZOLIN 1 G VIAL MC ONE (21:09)
[2018-09-07] MEDS ORDERED: IV LACTATED RINGERS SOLUTION 1,000 ML BAG IV ONE (21:09)
[2018-09-07] MEDS ORDERED: PROPOFOL 200 MG/20 ML BOTTLE IV ONE (21:09)
[2018-09-07] MEDS ORDERED: DEXAMETHASONE SOD PHOSPHATE 4 MG INJ IV ONE (21:09)
[2018-09-07] MEDS ORDERED: IV NORMAL SALINE 1000 ML BAG IV ONE (21:09)
[2018-09-08] MEDS: CEFAZOLIN 1 G in PREMIXED 1 EACH IV SCH (01:42)
[2018-09-08] MEDS ORDERED: IV NORMAL SALINE 500 ML IV ONE ×2 (06:00→17:15)
--- NOTE | 2018-09-08 06:00 | NUR ---
Pt.'s blood pressure 83/44 with HR 82 rechecked BP 90/49 HR 83. Pt. non symptomatic. Surgery bandage dry and clean, non soiled. Bounding pulse in right and left pedal pulse. Pt. able to move toes. Pt. denies any pain or discomfort. Charge Nurse aware. Dr. Woods aware and ordered 500 cc NS IV bolus x1. Hung IV bolus with charge nurse and will continue to monitor.
[2018-09-08] MEDS: PANTOPRAZOLE SODIUM 40 MG TABLET.DR PO SCH (06:06)
[2018-09-08] MEDS: POTASSIUM CHLORIDE 20 MEQ in IV D5 1/2 NS 1000 ML 1,000 ML IV PRN (06:07)
[2018-09-08 06:35] VITALS: BP 90/49
--- NOTE | 2018-09-08 06:37 | NUR ---
Pt.'s blood pressure 101/53 HR 84 after IV bolus. Pt. lying in bed alert oriented x4 denying any pain or discomfort. Pt. denies any difficulty breathing or SOB. IV site in left hand 20 gauge intact and patent. IV site in right hand 18 gauge patent, intact, running fluid. Solano catheter in place draining yellow clear urine. Surgery bandage dry and clean. Educated pt. on importance of incentive spirometer. Pt. using incentive spirometer. Will endorse to AM nurse
[2018-09-08 07:55] LABS: BASOPHILS % (AUTO) 0.5 % (0.0-2.0); EOSINOPHILS # (AUTO) 0.1 K/uL (0.0-0.7); EOSINOPHILS % (AUTO) 1.1 % (0.0-7.0); LYMPHOCYTES # (AUTO) 1.8 K/uL (20.0-40.0); LYMPHOCYTES % (AUTO) 20.1 % (20.5-51.5); MEAN CORPUSCULAR HEMOGLOBIN 30.8 uug (23.8-33.4); MEAN CORPUSCULAR HGB CONC 33 g/dL (32.5-36.3); MEAN CORPUSCULAR VOLUME 92.8 fL (73.0-96.2); MONOCYTES # (AUTO) 0.8 K/uL (2.0-10.0); MONOCYTES % (AUTO) 9.6 % (0.0-11.0); NEUTROPHILS # (AUTO) 6.1 K/uL (1.8-8.9); NEUTROPHILS % (AUTO) 68.7 % (38.5-71.5); PLATELET COUNT (AUTO) 251 K/uL (152-348); RED BLOOD CELL COUNT(AUTO) 3.62 MIL/uL (4.06-5.63)
[2018-09-08] MEDS: CARVEDILOL 12.5 MG TABLET PO SCH ×2 (08:00→18:00)
[2018-09-08 08:01] LABS: HEMATOCRIT 33.6 % (36.7-47.1); HEMOGLOBIN 11.1 g/dL (12.5-16.3); WHITE BLOOD COUNT (AUTO) 8.8 K/uL (3.6-10.2)
[2018-09-08] MEDS: DONEPEZIL 10 MG TABLET PO SCH (09:02)
[2018-09-08] MEDS: CITALOPRAM 20 MG TABLET PO SCH (09:02)
[2018-09-08] MEDS: DIVALPROEX ER 500 MG TAB.SR.24H PO SCH ×3 (09:02→17:20)
[2018-09-08] MEDS: CARBIDOPA/LEVODOPA CR 50-200MG TABLET.SA PO SCH ×3 (09:02→17:20)
[2018-09-08] MEDS: CELECOXIB 200 MG CAPSULE PO SCH (09:02)
[2018-09-08] MEDS: ENTRESTO PO SCH ×2 (09:02→17:23)
[2018-09-08 11:40] VITALS: BP 99/53
[2018-09-08 16:00] VITALS: BP 92/56
--- NOTE | 2018-09-08 18:55 | NUR ---
PATIENT ALERT AND ORIENTED READY FOR DISCHARGE TO ARU , NO PAIN OR SOB NOTED AT THIS TIME. WILL CONTINUE TO MONITOR.
--- NOTE | 2018-09-08 20:00 | NUR ---
Pt. alert oriented x4, denies any pain or discomfort. Pt. has narayanan catheter in draining urine. Bounding pulse in right pedal pulse and sensation. Surgical site clean and dry. Abductor pillow in place. IV in left hand 20 gauge patent, intact. Pt. ready to be discharged to ARU.
[2018-09-08] MEDS ORDERED: MIDODRINE HCL 5 MG TABLET PO STA (20:10)
[2018-09-08 20:30] VITALS: BP 90/55
--- NOTE | 2018-09-08 20:30 | NUR ---
Pt. blood pressure 90/[address] Pa aware and gave midodrine 10 mg PO x1. Rechecked BP now at 122/53 HR 88.
--- NOTE | 2018-09-08 21:10 | NUR ---
Pt. dicharged to ARU. Report given to Odalys. Paperwork signed and copied. Pt. left comfortably downstairs in wheel chair with GLO[employer] SU[employer] CH[employer] VICE PRESIDENT and charge Nurse. Pt. denies any distress. Belongings with pt.
[2018-09-08] MEDS ORDERED: ACET-2154 PO (22:23)
== END 2018-09-08 21:10 | DRG 467 ==
LOC: ER 15:25 → TELE3 17:49 → MEDSURG3 09-04 15:22
PROVIDERS: ADMIT Nurse Practitioner Acute Care; ATTEND Nurse Practitioner Acute Care
PROC: 0SWRXJZ Revision of Synthetic Substitute in Right Hip Joint, Femoral Surface, External Approach (ICD-10-PCS; 2018-09-03)
PROC: 0SRR01Z Replacement of Right Hip Joint, Femoral Surface with Metal Synthetic Substitute, Open Approach (ICD-10-PCS; principal; 2018-09-07)
PROC: 0SPR0JZ Removal of Synthetic Substitute from Right Hip Joint, Femoral Surface, Open Approach (ICD-10-PCS; 2018-09-07)
DX: T84.020A Dislocation of internal right hip prosthesis, initial encounter (principal); I50.22 Chronic systolic (congestive) heart failure; E44.1 Mild protein-calorie malnutrition; G20 Parkinson's disease; I25.5 Ischemic cardiomyopathy; R26.2 Difficulty in walking, not elsewhere classified; Z95.810 Presence of automatic (implantable) cardiac defibrillator; E78.5 Hyperlipidemia, unspecified; I11.0 Hypertensive heart disease with heart failure; I95.1 Orthostatic hypotension; E87.6 Hypokalemia; Y79.2 Prosthetic and other implants, materials and accessory orthopedic devices associated with adverse incidents; W18.39XA Other fall on same level, initial encounter; Y93.89 Activity, other specified; Y92.019 Unspecified place in single-family (private) house as the place of occurrence of the external cause; G40.909 Epilepsy, unspecified, not intractable, without status epilepticus; G56.31 Lesion of radial nerve, right upper limb; J45.909 Unspecified asthma, uncomplicated; F32.9 Major depressive disorder, single episode, unspecified; Z79.899 Other long term (current) drug therapy; M19.90 Unspecified osteoarthritis, unspecified site; M85.80 Other specified disorders of bone density and structure, unspecified site; M47.816 Spondylosis without myelopathy or radiculopathy, lumbar region
CPT/HCPCS: 36415; 70030-TC; 71045; 73501; 73502; 83735; 84100; 84443; 85025; 85610; 92526; 92610; 93005; 97110; 97116; 97530; A4217; A4649; A4663; G0378; J0690; J1100; J1940; J2250; J2270; J2370; J2405; J2710; J3010; J3370; J3480; J3490; J7030; J7040; J7120

== ENCOUNTER 2018-09-08 22:03 | Inpatient (IN) | payer MEDICARE ==
[~2018-09-08] VITALS: Ht 165.1 cm; Wt 82.6 kg
--- NOTE | 2018-09-08 22:19 | NUR ---
Admitted a 68-year-old male from Med-Surg. patient arrived at 2100 through wheelchair, accompanied by an RN and CVA. AAO X4, able to make needs known. Condition fair. Admitting diagnosis: S/P right hip replacement. Solano catheter in place, draining well yellow urine. IV line on left hand G 20, no sign of inflammation. VS: BP:96/54, HR:91, RR:18. T:98.2, O2 SAT:95. Belonging list documented. Safety measures maintained. Fall prevention observed. Bed in low position, bed lock and alarm on, side rails up x2 for safety. Oriented patient to the unit. Call light and Belonging within reach. Continue to monitor.
[2018-09-08] MEDS ORDERED: ACET-2154 PO (22:23)
[2018-09-08 23:11] VITALS: BP 96/54
[2018-09-08] MEDS ORDERED: ALBUTEROL SULFATE 2.5 MG/ 0.5 ML NEBU IH PRN (23:15)
[2018-09-08] MEDS ORDERED: ACETAMINOPHEN 325 MG TABLET PO PRN (23:15)
[2018-09-08] MEDS ORDERED: CLONIDINE HCL 0.1 MG TABLET PO PRN (23:30)
--- NOTE | 2018-09-08 23:40 | NUR ---
Contacted [facility] on-call doctor for medication reconciliation. Dr. Cui did the reconciliation.
[2018-09-09] MEDS: HYDROCODONE/APAP 10-325 MG TABLET PO PRN ×2 (00:42→08:28)
[2018-09-09] MEDS: ZOLPIDEM 5 MG TABLET PO PRN ×2 (01:07→20:32)
--- NOTE | 2018-09-09 01:10 | NUR ---
Patient requesting for Ambien 10 mg. Contacted [facility] on-call doctor, received order for Ambien 10 mg. Continue to monitor.
[2018-09-09 06:59] VITALS: BP 107/59
[2018-09-09] MEDS ORDERED: ALBUTEROL SULFATE 2.5 MG/3 ML NEBU NEB PRN (07:30)
[2018-09-09] MEDS: CELECOXIB 200 MG CAPSULE PO SCH (08:27)
[2018-09-09] MEDS: CARBIDOPA/LEVODOPA CR 50-200MG TABLET.SA PO SCH ×3 (08:27→17:22)
[2018-09-09] MEDS: DIVALPROEX ER 500 MG TAB.SR.24H PO SCH ×3 (08:27→17:21)
[2018-09-09] MEDS: CITALOPRAM 20 MG TABLET PO SCH (08:28)
[2018-09-09] MEDS: DONEPEZIL 10 MG TABLET PO SCH (08:28)
[2018-09-09] MEDS ORDERED: MUPIROCIN 2% OINT 22 GM TUBE TP SCH ×2 (09:00)
[2018-09-09] MEDS ORDERED: K DUR PO SCH (09:00)
[2018-09-09 11:20] VITALS: BP 115/59
--- NOTE | 2018-09-09 14:59 | NUR ---
Received patient awake in bed. Alert and orientedx3. Started therapy for unsteady gait and muscle weakness. Seen and examined by MD Ochoa with order decrease coreg from 123.5mg to 6.25mg. not in distress. Continue on narayanan catheter with 900ml output. will continue monitor
[2018-09-09] MEDS ORDERED: PATIENT MAY USE OWN MED- MD OK RC PRN (15:45)
[2018-09-09 17:12] VITALS: BP 116/71
[2018-09-09] MEDS: CARVEDILOL 6.25 MG TABLET PO SCH (17:22)
[2018-09-09] MEDS: ENTRESTO PO SCH (17:22)
[2018-09-09] MEDS ORDERED: CARVEDILOL 25 MG TABLET PO SCH ×2 (18:00)
--- NOTE | 2018-09-09 19:30 | NUR ---
PATIENT RECEIVED IN BED, WATCHING TV. ALERT AND ORIENTED X 3 WITH PERIODS OF CONFUSION. NO C/O PAIN, SOB, OR DISTRESS UPON ASSESSMENT. SUAREZ CATHETER INTACT AND DRAINING WELL. LEFT HAND IV 20G INTACT AND FLUSHING. PATIENT REQUESTING DOSE OF AMBIEN AT BEDTIME. WILL ADMINISTER. SIDE RAILS UP BILATERALLY FOR SAFETY. CALL LIGHT AND FREQUENTLY USED ITEMS WITHIN REACH. WILL CONTINUE TO MONITOR.
[2018-09-09 19:55] VITALS: BP 107/65
[2018-09-09] MEDS: SIMVASTATIN 40 MG TABLET PO SCH (20:32)
[2018-09-09] MEDS: CLOZAPINE 100 MG TABLET PO SCH (20:32)
[2018-09-09] MEDS ORDERED: Medication Not On Formulary EA (Zolpidem Tartrate (Ambien) 10 MG) PO SCH (21:00)
[2018-09-09] MEDS ORDERED: CLOZAPINE 25 MG TABLET PO SCH (21:00)
[2018-09-10 05:56] VITALS: BP 105/68
[2018-09-10 08:30] VITALS: BP 133/59
[2018-09-10 08:35] LABS: BASOPHILS # (AUTO) 0.1 K/uL (0.0-8.0); BASOPHILS % (AUTO) 1.5 % (0.0-2.0); EOSINOPHILS # (AUTO) 0.5 K/uL (0.0-0.7); EOSINOPHILS % (AUTO) 7.8 % (0.0-7.0); HEMATOCRIT 32.6 % (36.7-47.1); HEMOGLOBIN 10.8 g/dL (12.5-16.3); LYMPHOCYTES # (AUTO) 1.5 K/uL (20.0-40.0); LYMPHOCYTES % (AUTO) 23.2 % (20.5-51.5); MEAN CORPUSCULAR HGB CONC 33 g/dL (32.5-36.3); MEAN CORPUSCULAR VOLUME 93.7 fL (73.0-96.2); MONOCYTES # (AUTO) 0.6 K/uL (2.0-10.0); NEUTROPHILS # (AUTO) 3.7 K/uL (1.8-8.9); NEUTROPHILS % (AUTO) 58.5 % (38.5-71.5); PLATELET COUNT (AUTO) 249 K/uL (152-348); RED BLOOD CELL COUNT(AUTO) 3.48 MIL/uL (4.06-5.63); WHITE BLOOD COUNT (AUTO) 6.3 K/uL (3.6-10.2)
[2018-09-10] MEDS: DIVALPROEX ER 500 MG TAB.SR.24H PO SCH ×3 (08:56→16:29)
[2018-09-10] MEDS: CITALOPRAM 20 MG TABLET PO SCH (08:57)
[2018-09-10] MEDS: CARBIDOPA/LEVODOPA CR 50-200MG TABLET.SA PO SCH ×3 (08:57→16:30)
[2018-09-10] MEDS: DONEPEZIL 10 MG TABLET PO SCH (08:57)
[2018-09-10] MEDS: CELECOXIB 200 MG CAPSULE PO SCH (08:57)
[2018-09-10] MEDS: ENTRESTO PO SCH ×2 (08:57→16:30)
[2018-09-10] MEDS: CARVEDILOL 6.25 MG TABLET PO SCH ×2 (08:58→17:07)
--- NOTE | 2018-09-10 09:38 | NUR ---
Received pt. in bed in no distress. A/OX3 verbally responsive and able to make his needs known. No new skin condition. All needs attended and met promptly. All due medications given as ordered and tolerated well. Solano cath draining with clear yellow urine. Noted with 20g PIV on RH, patent/intact with no iv complication. Safety measures in place. Call light and all frequently used items within pt. reach. Will continue to monitor accordingly. Addendum: 09/11/18 at 1920 by ROMAIN CAROLINA RN Note correction: Lt. hand PIV 20G.
[2018-09-10] MEDS: GLYCERIN ADULT RECTAL SUPP EACH RC PRN (10:23)
[2018-09-10 16:04] VITALS: BP 102/49
--- NOTE | 2018-09-10 18:32 | NUR ---
End of shift note: No significant change during this shift. Dr. Froilan Catherine with order to D/C narayanan. D/C narayanan at around 1745. Pt. tolerated procedure well. Received shower today. Rt hip dressing remain C/D/I. Will monitor for urinary retention. All needs attended and met promptly. Safety measures in placed. Bed in low position, brake on, side rails up x2 as an enabler. Call light and all frequently used items within pt. reach. Will endorse to next shift accordingly.
[2018-09-10 19:58] VITALS: BP 109/52
[2018-09-10] MEDS: ZOLPIDEM 5 MG TABLET PO PRN (20:39)
[2018-09-10] MEDS: CLOZAPINE 100 MG TABLET PO SCH (20:39)
[2018-09-10] MEDS: SIMVASTATIN 40 MG TABLET PO SCH (20:39)
--- NOTE | 2018-09-10 22:49 | NUR ---
Received pt in bed, resting comfortably watching television. AO x 3. No acute distress noted. Verbally responsive and able to make needs known. Denies pain or discomfort at this time. Noted with 200 ml urine in urinal. No bladder distension noted; denies pain or discomfort upon palpation. All due medications given as ordered. Tolerated well. All safety measures and fall precautions maintained. Call light all personal belongings within reach. Will continue to monitor.
[2018-09-11 06:15] VITALS: BP 112/64
[2018-09-11 07:56] VITALS: BP 144/69
[2018-09-11] MEDS: CELECOXIB 200 MG CAPSULE PO SCH (08:32)
[2018-09-11] MEDS: DIVALPROEX ER 500 MG TAB.SR.24H PO SCH ×3 (08:32→16:22)
[2018-09-11] MEDS: CITALOPRAM 20 MG TABLET PO SCH (08:33)
[2018-09-11] MEDS: CARBIDOPA/LEVODOPA CR 50-200MG TABLET.SA PO SCH ×3 (08:33→16:22)
[2018-09-11] MEDS: DONEPEZIL 10 MG TABLET PO SCH (08:33)
[2018-09-11] MEDS: CARVEDILOL 6.25 MG TABLET PO SCH ×2 (08:33→17:08)
[2018-09-11] MEDS: ENTRESTO PO SCH ×2 (08:34→16:23)
--- NOTE | 2018-09-11 08:46 | NUR ---
Received pt. in bed in no distress. A/OX3 verbally responsive and able to make his needs known. No new skin condition. All needs attended and met promptly. All due medications given as ordered and tolerated well. Pt. voiding well in urinal with clear yellow urine output. No bladder distention noted. Noted with 20g PIV on RH, patent/intact with no iv complication. Safety measures in place. Call light and all frequently used items within pt. reach. Will continue to monitor accordingly. Addendum: 09/11/18 at 1919 by ROMAIN CAROLINA RN Note correction: Lt. hand PIV 20G.
[2018-09-11] MEDS: GLYCERIN ADULT RECTAL SUPP EACH RC PRN (09:33)
--- NOTE | 2018-09-11 11:29 | NUR ---
INDIVIDUALIZED OVERALL PLAN OF CARE
--- NOTE | 2018-09-11 16:00 | NUR ---
D/C'd LH 20G PIV 2/2 non-usage. Pt. tolerated procedure well. No IV complications noted.
[2018-09-11 16:04] VITALS: BP 97/48
--- NOTE | 2018-09-11 18:12 | NUR ---
End of shift note: No significant change during this shift. Rt hip dressing remain C/D/I. All needs attended and met promptly. Safety measures in placed. Bed in low position, brake on, side rails up x2 as an enabler. Call light and all frequently used items within pt. reach. Will endorse to next shift accordingly.
[2018-09-11 19:40] VITALS: BP 94/59
--- NOTE | 2018-09-11 19:40 | NUR ---
Patient received in bed, AAO x4. Able to make needs known. No acute distress or SOB noted. On room air. No Complain of pain at this time. Physical assessment done. Safety measures observed. Fall precaution maintained. Bed in low position, side rails up x2 for safety, brake and alarm on. call light and personal belongings within reach. Continue to monitor.
[2018-09-11] MEDS: CLOZAPINE 100 MG TABLET PO SCH (20:04)
[2018-09-11] MEDS: SIMVASTATIN 40 MG TABLET PO SCH (20:04)
[2018-09-11] MEDS: ZOLPIDEM 5 MG TABLET PO PRN (21:10)
[2018-09-12 05:30] VITALS: BP 115/68
--- NOTE | 2018-09-12 05:42 | NUR ---
End of the shift note Patient was stable throughout the shift, but had a good sleep last night. No acute distress or SOB noted. All due medication given as ordered. Checked Vital Signs. No Solano catheter (using urinal) and no IV access anymore. Physical assessment done. Safety measures observed. Fall precaution maintained. All needs attended promptly. Bed in low position, side rails up x2 for safety, brake and alarm on. call light and personal belongings within reach. Continue to monitor and will endorse to the day shift nurse accordingly.
[2018-09-12] MEDS: CARBIDOPA/LEVODOPA CR 50-200MG TABLET.SA PO SCH ×3 (08:11→17:57)
[2018-09-12] MEDS: DONEPEZIL 10 MG TABLET PO SCH (08:11)
[2018-09-12] MEDS: CELECOXIB 200 MG CAPSULE PO SCH (08:11)
[2018-09-12] MEDS: ENTRESTO PO SCH ×2 (08:11→17:58)
[2018-09-12] MEDS: CITALOPRAM 20 MG TABLET PO SCH (08:11)
[2018-09-12] MEDS: DIVALPROEX ER 500 MG TAB.SR.24H PO SCH ×3 (08:11→17:57)
[2018-09-12] MEDS: CARVEDILOL 6.25 MG TABLET PO SCH ×2 (08:12→17:58)
[2018-09-12] MEDS: GLYCERIN ADULT RECTAL SUPP EACH RC PRN (08:26)
[2018-09-12 12:37] VITALS: BP 125/62
--- NOTE | 2018-09-12 15:24 | NUR ---
INTERDISCIPLINARY TEAM CONFERENCE
--- NOTE | 2018-09-12 18:51 | NUR ---
Patient continue therapy for muscle weakness and endurance. tolerated well. no complaint of pain/discomfort. not in distress. Seen and examined by MD Mcgovern with no new order. will continue monitor
[2018-09-12 19:20] VITALS: BP 114/75
[2018-09-12 19:30] VITALS: BP 106/55
--- NOTE | 2018-09-12 19:30 | NUR ---
ALERT AND ORIENTED X 3 WITH PERIODS OF CONFUSION. RECEIVED IN BED WATCHING TV. NO C/O PAIN, SOB, OR DISTRESS UPON ASSESSMENT. PATIENT REQUESTING DOSE OF AMBIEN AT BEDTIME. WILL ADMINISTER. SIDE RAILS UP BILATERALLY FOR SAFETY. CALL LIGHT AND FREQUENTLY USED ITEMS WITHIN REACH. WILL CONTINUE TO MONITOR.
[2018-09-12] MEDS: SIMVASTATIN 40 MG TABLET PO SCH (20:33)
[2018-09-12] MEDS: ZOLPIDEM 5 MG TABLET PO PRN (20:33)
[2018-09-12] MEDS: CLOZAPINE 100 MG TABLET PO SCH (20:33)
[2018-09-13 05:53] VITALS: BP 120/61
[2018-09-13] MEDS: CITALOPRAM 20 MG TABLET PO SCH (09:10)
[2018-09-13] MEDS: DONEPEZIL 10 MG TABLET PO SCH (09:10)
[2018-09-13] MEDS: ENTRESTO PO SCH ×2 (09:10→17:31)
[2018-09-13] MEDS: CARBIDOPA/LEVODOPA CR 50-200MG TABLET.SA PO SCH ×3 (09:10→17:30)
[2018-09-13] MEDS: CARVEDILOL 6.25 MG TABLET PO SCH ×2 (09:10→17:31)
[2018-09-13] MEDS: CELECOXIB 200 MG CAPSULE PO SCH (09:10)
[2018-09-13] MEDS: DIVALPROEX ER 500 MG TAB.SR.24H PO SCH ×3 (09:11→17:30)
--- NOTE | 2018-09-13 09:36 | NUR ---
Patient noted resting in bed with eyes closed, easily arousals, assisted to restroom with walker, loose BM noted, denies pain at this time, no signs of distress, call light in reach, bed locked and in lowest position, all needs met
[2018-09-13] MEDS: RIVAROXABAN 10 MG TABLET PO SCH (17:56)
--- NOTE | 2018-09-13 18:46 | NUR ---
MD Barajas ordered Xarelto 10 mg
[2018-09-13 19:18] VITALS: BP 109/64
[2018-09-13 19:55] VITALS: BP 85/56
[2018-09-13] MEDS: CLOZAPINE 100 MG TABLET PO SCH (20:17)
[2018-09-13] MEDS: SIMVASTATIN 40 MG TABLET PO SCH (20:19)
[2018-09-13] MEDS: ZOLPIDEM 5 MG TABLET PO PRN (20:35)
--- NOTE | 2018-09-13 20:53 | NUR ---
received in bed watching TV. aaox3-4 with periods of forgetfulness @times. VS taken and recorded. BP 85/56 HR 70 Resp 18 Temp 98.4 pulse ox 98% Denies any pain nor any discomfort. Making needs known. Voiding freely. Requested for ambien @ hs. Will administer. Fall precautions maintained. Siderails up for safety. Call kaye within reach.
[2018-09-14 06:09] VITALS: BP 121/75
--- NOTE | 2018-09-14 06:17 | NUR ---
quiet night. aaox3-4 voiding well in the urinal. VSS. needs attended. fall precautions maintained. siderails up for safety. will monitor patient. denies any pain nor any discomfort.
[2018-09-14] MEDS: CARVEDILOL 6.25 MG TABLET PO SCH ×2 (08:00→17:00)
[2018-09-14] MEDS: DONEPEZIL 10 MG TABLET PO SCH (08:58)
[2018-09-14] MEDS: CITALOPRAM 20 MG TABLET PO SCH (08:59)
[2018-09-14] MEDS: CARBIDOPA/LEVODOPA CR 50-200MG TABLET.SA PO SCH ×3 (08:59→16:58)
[2018-09-14] MEDS: DIVALPROEX ER 500 MG TAB.SR.24H PO SCH ×3 (08:59→16:58)
[2018-09-14] MEDS: CELECOXIB 200 MG CAPSULE PO SCH (08:59)
[2018-09-14 09:00] VITALS: BP 101/58
[2018-09-14] MEDS: ENTRESTO PO SCH ×2 (09:00→16:59)
--- NOTE | 2018-09-14 09:26 | NUR ---
Patient assisted to restroom at this time, suppository given as requested by patient, call light in reach, denies pain, no signs of distress noted, all needs met, Carvedilol held for low blood pressure as recorded
[2018-09-14] MEDS: RIVAROXABAN 10 MG TABLET PO SCH (17:03)
[2018-09-14 18:55] VITALS: BP 109/79
[2018-09-14 19:47] VITALS: BP 107/66
--- NOTE | 2018-09-14 19:55 | NUR ---
received in bed upon rounds. aaox4 no acute distress noted. VSS. BP 107/66 HR 72 temp 97.9 resp 20 pulse ox 98%RA. no acute distress noted. denies any pain nor any discomfort. voiding well in the urinal. will monitor patient. due meds given as ordered.
[2018-09-14] MEDS: CLOZAPINE 100 MG TABLET PO SCH (20:43)
[2018-09-14] MEDS: ZOLPIDEM 5 MG TABLET PO PRN (20:43)
[2018-09-14] MEDS: SIMVASTATIN 40 MG TABLET PO SCH (20:43)
[2018-09-15 05:47] VITALS: BP 116/72
[2018-09-15] MEDS: CARVEDILOL 6.25 MG TABLET PO SCH ×2 (08:00→17:12)
[2018-09-15] MEDS: DONEPEZIL 10 MG TABLET PO SCH (08:11)
[2018-09-15] MEDS: CITALOPRAM 20 MG TABLET PO SCH (08:11)
[2018-09-15] MEDS: CARBIDOPA/LEVODOPA CR 50-200MG TABLET.SA PO SCH ×3 (08:15→16:35)
[2018-09-15] MEDS: GLYCERIN ADULT RECTAL SUPP EACH RC PRN (08:15)
[2018-09-15] MEDS: CELECOXIB 200 MG CAPSULE PO SCH (08:15)
[2018-09-15] MEDS: ENTRESTO PO SCH ×2 (08:15→16:39)
[2018-09-15] MEDS: DIVALPROEX ER 500 MG TAB.SR.24H PO SCH ×3 (08:15→16:35)
--- NOTE | 2018-09-15 08:19 | NUR ---
Patient noted siting up in bed eating breakfast, took all AM medications, requesting suppository for constipation, denies pain at this time, no signs of distress noted, call light in reach, bed locked and lowest position, all needs met
[2018-09-15 09:00] VITALS: BP 108/66
--- NOTE | 2018-09-15 11:46 | NUR ---
PAtient blood pressure noted at 108/66, 79 heart rate, held carvedilol but gave Entresto. During physical therapy session patient complaints mild dizziness, therapist checked blood pressure twice and got readings 80/51 and 65/44, patient placed in bed and feet are elevated Blood pressure rechecked and noted at 103/ 58
[2018-09-15] MEDS: RIVAROXABAN 10 MG TABLET PO SCH (17:34)
--- NOTE | 2018-09-15 19:35 | NUR ---
MD Merlos orders for Normal saline to be infused at 75 ml/Hr x2 liters, Patient refused hospitalist order stating he would prefer the painter drum recommendation. Patient insisted on taking Entresto despite blood pressure of 106/67, Entresto administered this shift
[2018-09-15 19:46] VITALS: BP 106/67
[2018-09-15 20:07] VITALS: BP 113/65
[2018-09-15] MEDS: ZOLPIDEM 5 MG TABLET PO PRN (20:33)
[2018-09-15] MEDS: CLOZAPINE 100 MG TABLET PO SCH (20:34)
[2018-09-15] MEDS: SIMVASTATIN 40 MG TABLET PO SCH (20:34)
--- NOTE | 2018-09-15 22:18 | NUR ---
Received pt in bed, AAO x 3 watching television. No acute distress noted. Verbally responsive and able to make needs known. Denies pain or discomfort. All due medications given as ordered, tolerated well. All safety measures and fall precautions maintained. Call light and all frequently used items within reach. Will continue to monitor.
[2018-09-16 06:01] VITALS: BP 121/74
[2018-09-16] MEDS: CELECOXIB 200 MG CAPSULE PO SCH (08:14)
[2018-09-16] MEDS: DONEPEZIL 10 MG TABLET PO SCH (08:14)
[2018-09-16] MEDS: CARVEDILOL 6.25 MG TABLET PO SCH (08:14)
[2018-09-16] MEDS: CARBIDOPA/LEVODOPA CR 50-200MG TABLET.SA PO SCH ×3 (08:14→16:43)
[2018-09-16] MEDS: DIVALPROEX ER 500 MG TAB.SR.24H PO SCH ×3 (08:15→16:42)
[2018-09-16] MEDS: GLYCERIN ADULT RECTAL SUPP EACH RC PRN (08:15)
[2018-09-16] MEDS: CITALOPRAM 20 MG TABLET PO SCH (08:15)
[2018-09-16] MEDS: ENTRESTO PO SCH ×2 (08:15→16:43)
[2018-09-16 08:52] VITALS: BP 123/67
--- NOTE | 2018-09-16 16:06 | NUR ---
Patient seen and examined by MD Ochoa regarding orthostatic hypotension. order decrease coreg 6.25mg to 3.125mg. not in distress. will continue monitor
[2018-09-16] MEDS: CARVEDILOL 3.125 MG TABLET PO SCH (17:04)
[2018-09-16] MEDS: RIVAROXABAN 10 MG TABLET PO SCH (17:04)
[2018-09-16 17:34] VITALS: BP 105/58
[2018-09-16] MEDS ORDERED: CARVEDILOL 6.25 MG TABLET PO SCH (18:00)
[2018-09-16 20:15] VITALS: BP 117/61
[2018-09-16] MEDS: CLOZAPINE 100 MG TABLET PO SCH (20:48)
[2018-09-16] MEDS: SIMVASTATIN 40 MG TABLET PO SCH (20:48)
[2018-09-16] MEDS: ZOLPIDEM 5 MG TABLET PO PRN (20:49)
--- NOTE | 2018-09-16 23:40 | NUR ---
received in bed aaox4. needs attended. in good spirits. VSS. no acute distress noted. fall precautions maintained. siderails up for safety. tolerated well. kept comfortable. voiding well in the urinal. request for sleeping pill, given as ordered. wants to be waken @7am. possible discharge to home in am.
--- NOTE | 2018-09-17 06:53 | NUR ---
End of shift note: quiet night. slept well. denies any pain at this time. refused to be waken up till 0730am. fall precautions maintained. VSS. no acute distress noted.
[2018-09-17 07:20] LABS: BASOPHILS # (AUTO) 0.1 K/uL (0.0-8.0); BASOPHILS % (AUTO) 1.6 % (0.0-2.0); EOSINOPHILS # (AUTO) 0.3 K/uL (0.0-0.7); EOSINOPHILS % (AUTO) 6.4 % (0.0-7.0); HEMATOCRIT 34.1 % (36.7-47.1); HEMOGLOBIN 11.7 g/dL (12.5-16.3); LYMPHOCYTES # (AUTO) 1.5 K/uL (20.0-40.0); LYMPHOCYTES % (AUTO) 32.2 % (20.5-51.5); MEAN CORPUSCULAR HEMOGLOBIN 31.7 uug (23.8-33.4); MEAN CORPUSCULAR HGB CONC 34 g/dL (32.5-36.3); MEAN CORPUSCULAR VOLUME 92.2 fL (73.0-96.2); MONOCYTES # (AUTO) 0.5 K/uL (2.0-10.0); MONOCYTES % (AUTO) 10.1 % (0.0-11.0); NEUTROPHILS # (AUTO) 2.3 K/uL (1.8-8.9); NEUTROPHILS % (AUTO) 49.7 % (38.5-71.5); PLATELET COUNT (AUTO) 282 K/uL (152-348); WHITE BLOOD COUNT (AUTO) 4.6 K/uL (3.6-10.2)
[2018-09-17 07:27] LABS: CREATININE 0.7 mg/dL (0.6-1.3); MAGNESIUM 2.1 mg/dL (1.8-2.4); PHOSPHOROUS 3.7 mg/dL (2.5-4.9); POTASSIUM 4.3 mmol/L (3.5-5.1)
[2018-09-17 08:08] VITALS: BP 112/73
[2018-09-17] MEDS: CELECOXIB 200 MG CAPSULE PO SCH (08:33)
[2018-09-17 08:34] VITALS: BP 112/73
[2018-09-17] MEDS: DIVALPROEX ER 500 MG TAB.SR.24H PO SCH ×2 (08:34→12:03)
[2018-09-17] MEDS: DONEPEZIL 10 MG TABLET PO SCH (08:34)
[2018-09-17] MEDS: CARBIDOPA/LEVODOPA CR 50-200MG TABLET.SA PO SCH ×2 (08:34→12:02)
[2018-09-17] MEDS: CARVEDILOL 3.125 MG TABLET PO SCH (08:34)
[2018-09-17] MEDS: ENTRESTO PO SCH (08:34)
[2018-09-17] MEDS: CITALOPRAM 20 MG TABLET PO SCH (08:34)
[2018-09-17] MEDS: GLYCERIN ADULT RECTAL SUPP EACH RC PRN (08:35)
--- NOTE | 2018-09-17 09:51 | NUR ---
Received pt. in bed in no distress. A/OX4 verbally responsive and able to make his needs known. No new skin condition. All needs attended and met promptly. All due medications given as ordered and tolerated well. Pt. scheduled to discharge home today with outpatient rehab to provide PT/OT/ST services. Dr. Mae provided discharge orders. Tomas Carrizales, [employer] amenable, seen pt. prior to D/C. Per [employer], pt. refused prescription (TMS/RX), pt. has all medications at home. Ordered (CD) copy of rt. hip X-ray taken on 09/16/18 from radiology dept. Safety measures in place. Call light and all frequently used items within pt. reach. Will continue to monitor accordingly.
--- NOTE | 2018-09-17 12:22 | NUR ---
Discharge Note: Pt. remained stable at this time. Dr. Mae deemed pt. safe for discharge today 09/17/2018. Routine round with pt; pt. remain cooperative, A/OX4 with capacity to make decision. Lungs sounds clear to auscultation bilaterally, no respiratory distress. Heart with regular rate and rhythm, no murmur, rub or gallop. Abdomen soft,non-tender, bowel sounds present in all 4 quadrants. Conjunctivae clear, PERRL. Pt. served with lunch as ordered and tolerated well. X1 Bm this morning, voiding well using the bathroom. 1200 Pt. pvt nurse (Serene) on-site. All belongings are prepared. Inventory done all accountable for. Skin intact with no skin issues. Instructed pt. to follow up with PCP and Ortho (Dr. Smith on 09/23/2018@ 1315). Pt. teaching provided which include but not limited to meds administration, risk of fall, and skin mgt. Gave pt. information regarding returning to community. Discharge paper signed by pt. witnessed by this designer writer and pvt CG. Original RX given and included in packet. Provided pt. discharge packet. No further questions from the pt. about the discharge instructions, Pt. verbalized clear understanding. Assisted resident safely via W/C to pvt vehicle. Pt. left the facility at 1215 and d/c to home with outpatient rehab to provide PT/OT/ST. made aware of resident discharge.
== END 2018-09-17 12:15 | disposition home or self-care (01) | DRG 949 ==
PROVIDERS: ADMIT Physical Medicine & Rehabilitation Pain Medicine; ATTEND Physical Medicine & Rehabilitation Pain Medicine
DX: T84.020D Dislocation of internal right hip prosthesis, subsequent encounter (principal); I50.22 Chronic systolic (congestive) heart failure; I42.9 Cardiomyopathy, unspecified; E78.5 Hyperlipidemia, unspecified; G20 Parkinson's disease; G40.909 Epilepsy, unspecified, not intractable, without status epilepticus; I11.0 Hypertensive heart disease with heart failure; M19.90 Unspecified osteoarthritis, unspecified site; R26.9 Unspecified abnormalities of gait and mobility; F32.9 Major depressive disorder, single episode, unspecified; Z95.810 Presence of automatic (implantable) cardiac defibrillator; G56.30 Lesion of radial nerve, unspecified upper limb; I95.1 Orthostatic hypotension; Z96.651 Presence of right artificial knee joint
CPT/HCPCS: 36415; 70030-TC; 73502; 83735; 84100; 85025; 92507; 92523; 97110; 97112; 97116; 97530; 97535

== ENCOUNTER 2021-12-20 15:06 | Emergency (ER) | payer MEDICARE ==
[~2021-12-20] VITALS: Ht 188 cm; Wt 99.8 kg
[~2021-12-20 15:06] MED LIST changes: +ACET-2154 PO; -MUPI22OI2
[2021-12-20 15:47] LABS: CARBON DIOXIDE 29 mmol/L (21-32); CHLORIDE 101 mmol/L (98-107); CREATININE 1.4 mg/dL (0.6-1.3); GLUCOSE 125 mg/dL (74-106); POTASSIUM 4.6 mmol/L (3.5-5.1); UREA NITROGEN, BLOOD 21 mg/dL (7-18)
--- NOTE | 2021-12-20 15:48 | NUR ---
Pt arrived brought by the paramedics, RA 88, from his doctor's appt, c/o hypotension 68/40. Arrived with saline lock, placed by the skip pitman, located at L AC with 500ml of NS. AO x 4, no n/v, denies dizziness, pain and discomfort. No signs of acute distress. Pt has a pacemaker, CHF, weakness on bilateral lower extremities. Pt uses a cane. Stated that he has a caregiver at home. EDMD by bedside for MSE.
[2021-12-20 15:50] LABS: HEMATOCRIT 34.1 % (36.7-47.1); MEAN CORPUSCULAR HEMOGLOBIN 30.3 uug (23.8-33.4); MEAN CORPUSCULAR VOLUME 92.6 fL (73.0-96.2); PLATELET COUNT (AUTO) 483 K/uL (152-348)
--- NOTE | 2021-12-20 15:50 | NUR ---
Safety precautions were observed. Bilateral side rails are up, bed in a low position.
--- NOTE | 2021-12-20 16:00 | NUR ---
Critical Lab result: Lactic Acid 2.[address] Escobedo notified. Also notified MD of patient's latest BP: 85/55, after 500 cc bolus of NS. New order of 500cc LR received.
[2021-12-20 16:07] LABS: ALANINE AMINOTRANSFERASE 13 U/L (16-63); ALKALINE PHOSPHATASE 41 U/L (50-136); ASPARTATE AMINOTRANSFERASE 10 U/L (15-37); BILIRUBIN,DIRECT 0.1 mg/dL (0.0-0.2); BILIRUBIN,TOTAL 0.3 mg/dL (0.2-1.0); TOTAL PROTEIN, SERUM 7.4 g/dL (6.4-8.2)
[2021-12-20] MEDS ORDERED: ROTI1PAT12 TP (16:11)
[2021-12-20] MEDS ORDERED: CLOP75TA15 PO (16:11)
[2021-12-20] MEDS ORDERED: GABA-532 PO (16:11)
[2021-12-20] MEDS ORDERED: CARV12.52 PO (16:11)
[2021-12-20] MEDS ORDERED: CARB1TAB31 PO (16:11)
[2021-12-20] MEDS ORDERED: MIRA25TA PO (16:11)
[2021-12-20] MEDS ORDERED: SPIR25TA6 PO (16:11)
[2021-12-20] MEDS ORDERED: MIRT-119 PO (16:11)
[2021-12-20] MEDS ORDERED: SACU1TAB7 PO (16:11)
[2021-12-20] MEDS ORDERED: ESZO3TAB27 PO (16:11)
[2021-12-20] MEDS ORDERED: DONE10TA44 PO (16:11)
[2021-12-20] MEDS ORDERED: HYDR15CR41 TP (16:11)
[2021-12-20] MEDS ORDERED: CELE200C PO (16:11)
[2021-12-20] MEDS ORDERED: NALO4SPR BNOSTRILS (16:11)
[2021-12-20] MEDS ORDERED: IPRA0.2S6 NEB (16:11)
[2021-12-20] MEDS ORDERED: CLON0.5T4 PO (16:11)
[2021-12-20] MEDS ORDERED: DIVA-78 PO (16:11)
[2021-12-20] MEDS ORDERED: ROSU40TA PO (16:11)
[2021-12-20] MEDS ORDERED: KETO10TA2 PO (16:11)
[2021-12-20] MEDS ORDERED: IV LACTATED RINGERS SOLUTION 1,000 ML BAG IV ONE (17:00)
--- NOTE | 2021-12-20 18:19 | NUR ---
Followed up with lab re: urine results. Kris deshpande.
[2021-12-20 18:30] LABS: *BILIRUBIN,URIN NEGATIVE (NEGATIVE); *CLARITY,URINE CLEAR (CLEAR); *COLOR,URINE YELLOW (YELLOW); *KETONES,URINE NEGATIVE (NEGATIVE); *UROBILINOGEN,URINE 0.2 E.U./dl (NORMAL); LEUKOCYTE ESTERASE ,URINE NEGATIVE (NEGATIVE); NITRITE, URINE NEGATIVE (NEGATIVE); PH,URINE 6.5 (5.0-8.0); UGLUCOSE NEGATIVE (NEGATIVE)
[2021-12-20 18:35] LABS: *BLOOD, URINE TRACE (NEGATIVE)
--- NOTE | 2021-12-20 18:50 | NUR ---
Receieved report from Rashel JUAREZ.
[2021-12-20] MEDS ORDERED: IV NS 1000 ML 1,000 ML IV ONE (19:00)
[2021-12-20 19:26] LABS: BACTERIA,URINE FEW /HPF (NONE SEEN); SQUAMOUS EPITHELIAL CELL,UR FEW /HPF (NONE SEEN); WBC,URINE NONE SEEN /HPF (0-3)
[2021-12-20 20:23] LABS: IRON, SERUM 26 ug/dL (50-175)
--- NOTE | 2021-12-20 22:30 | NUR ---
Patient discharged to home in stable condition. A/O x3. NAD noted. Ambulatory with steady gait. All belongings with patient. Written and verbal after care instructions given. Patient verbalizes understanding of instructions. Stressed follow up or return to ER for worsening s/s.
[2021-12-20 22:46] VITALS: BP 118/80
== END 2021-12-20 22:30 | disposition home or self-care (01) ==
LOC: ER 15:06
DX: D50.9 Iron deficiency anemia, unspecified (principal); I95.9 Hypotension, unspecified; E87.20 Acidosis, unspecified; Z20.822 Contact with and (suspected) exposure to COVID-19; E78.5 Hyperlipidemia, unspecified; G47.30 Sleep apnea, unspecified; Z95.810 Presence of automatic (implantable) cardiac defibrillator; Z86.73 Personal history of transient ischemic attack (TIA), and cerebral infarction without residual deficits; Z96.641 Presence of right artificial hip joint; Z79.02 Long term (current) use of antithrombotics/antiplatelets; R29.6 Repeated falls; J45.909 Unspecified asthma, uncomplicated; I50.9 Heart failure, unspecified; F32.A Depression, unspecified
CPT/HCPCS: 99285; 96360; 70450; 71045; 87426; 80076; 80048; 81001; 83880; 83550; 85025; 84145; 85730; 87086; 84484; 36415; 93005; 83605 ×3; J7120; J7040; A4663

== ENCOUNTER 2022-05-12 05:14 | Emergency (ER) | payer MEDICARE ==
[~2022-05-12] VITALS: Ht 188 cm; Wt 90.7 kg
[~2022-05-12 05:14] MED LIST changes: +CARB1TAB31 PO; +CARV12.52 PO; +CLON0.5T4 PO; +CLOP75TA15 PO; +DIVA-78 PO; +DONE10TA44 PO; +ESZO3TAB27 PO; +GABA-532 PO; +HYDR15CR41 TP; +IPRA0.2S6 NEB; +KETO10TA2 PO; +MIRA25TA PO; +MIRT-119 PO; +NALO4SPR BNOSTRILS; +ROSU40TA PO; +ROTI1PAT12 TP; +SACU1TAB7 PO; +SPIR25TA6 PO
--- NOTE | 2022-05-12 06:10 | NUR ---
Taken down for CT.
--- NOTE | 2022-05-12 07:31 | NUR ---
Report given to ANN Hackett.
--- NOTE | 2022-05-12 07:32 | NUR ---
Textile Machinery Instructor assumes care: 1st contact with patient: He is alert, awake, oriented x4, moving all extremities, c/o intermittent "behind my right eye pains" for about a week with increasing loss of balance with fall. His respiration is easy, nonlabored, even and symmetrical. He uses a walker for ambulation with a private caregiver at bedside. Patient is waiting for the results of CT scan of his head. He does not want any other tests at this time. Comfort and safety measures maintained.
[2022-05-12 09:44] LABS: HEMATOCRIT 47.8 % (36.7-47.1); MEAN CORPUSCULAR HEMOGLOBIN 31.3 uug (23.8-33.4); MEAN CORPUSCULAR VOLUME 93.8 fL (73.0-96.2); PLATELET COUNT (AUTO) 190 K/uL (152-348)
[2022-05-12 09:59] LABS: POTASSIUM 4.4 mmol/L (3.5-5.1)
--- NOTE | 2022-05-12 10:10 | NUR ---
Received telephone call from Claudia from [facility] who stated she was contacted by for higher level of care transport. Requested information provided via telephone and faxed . She stated she will call back with further information. . .
--- NOTE | 2022-05-12 11:19 | NUR ---
Patient is resting comfortably on gurney with eyes closed. PATIENT IS PAIN FREE AT THIS TIME. Patient is waiting for transfer information from [facility] staff Claudia. Patient consented to be transferred to another acute hospital.
--- NOTE | 2022-05-12 12:06 | NUR ---
Patient is not NPO per Dr Cagle. Hot lunch tray was ordered from dietary department.
--- NOTE | 2022-05-12 13:02 | NUR ---
Patient is eating hot lunch tray with good appetite. Patient is still waiting for transfer information from [facility] transfer center staff Claudia for higher level of care.
--- NOTE | 2022-05-12 13:50 | NUR ---
Called [facility] transfer center ([phone]) for updated status of requested transfer. Spoke with Sj who stated they have requested a bed at [facility] and one will be available soon (pending a discharge). The transfer center will make arrangement for transport and call back with further information.
--- NOTE | 2022-05-12 14:05 | NUR ---
Patient and caregiver were updated accordingly. No acute change in condition seen.
--- NOTE | 2022-05-12 15:30 | NUR ---
Pending transfer to [facility] for higher level of care, plan of care discussed with patient and caregiver by myself and ER physician.
--- NOTE | 2022-05-12 16:45 | NUR ---
Patient will be transferred to outside facility: [facility] Physician: Dr Kendall Location: direct admission to room 4412-1 RN: Cesilia méndez nursing hands off report ambulance: pending callback (for ETA as arranged by [facility]) transfer center staff Alice
--- NOTE | 2022-05-12 17:12 | NUR ---
Patient and caregiver were updated re: ambulance [id number]. No acute change in condition seen. Patient had one BM per private caregiver's report.
--- NOTE | 2022-05-12 18:00 | NUR ---
Patient ate hot dinner tray with good appetite.
--- NOTE | 2022-05-12 19:11 | NUR ---
Patient is still for trasnfer to another hospital for higher level of care. SBAR to nurse Dhaliwal.
--- NOTE | 2022-05-12 20:10 | NUR ---
EMT transportation has arrived.
--- NOTE | 2022-05-12 20:26 | NUR ---
Patient has left with [facility] unit [id number].
== END 2022-05-12 20:27 | disposition short-term general hospital (02) ==
LOC: ER 05:14
DX: S06.5XAA Traumatic subdural hemorrhage with loss of consciousness status unknown, initial encounter (principal); R40.2362 Coma scale, best motor response, obeys commands, at arrival to emergency department; R40.2252 Coma scale, best verbal response, oriented, at arrival to emergency department; R40.2142 Coma scale, eyes open, spontaneous, at arrival to emergency department; W19.XXXA Unspecified fall, initial encounter; Y92.89 Other specified places as the place of occurrence of the external cause; G20 Parkinson's disease; F02.80 Dementia in other diseases classified elsewhere, unspecified severity, without behavioral disturbance, psychotic disturbance, mood disturbance, and anxiety; R29.6 Repeated falls; Z86.73 Personal history of transient ischemic attack (TIA), and cerebral infarction without residual deficits; Z96.641 Presence of right artificial hip joint; J45.909 Unspecified asthma, uncomplicated; I44.7 Left bundle-branch block, unspecified; Z95.0 Presence of cardiac pacemaker; Z20.822 Contact with and (suspected) exposure to COVID-19; Z79.899 Other long term (current) drug therapy; Z79.02 Long term (current) use of antithrombotics/antiplatelets
CPT/HCPCS: 36415; 70450; 85025; 85610; 85730; A4663